=== PATIENT | female | born 1945 | race African-American/Black ===

== ENCOUNTER 2017-02-10 15:06 | Emergency (ER) | payer MEDICARE, MEDICAID ==
[2017-02-10 16:20] LABS: Bilirubin Negative (Negative); Blood, Urine Negative (Negative); Glucose, Urine (Dipstick) Negative (Negative); Ketone, Urine Negative (Negative); Nitrite Negative (Negative); Protein, Urine (Dipstick) Negative (Neg-Trace); Urobilinogen 0.2 mg/dL (0.2-1.0)
[2017-02-10 16:46] LABS: #Basophils 0.1 thou/uL (0.0-0.2); #Eosinphils 0.1 thou/uL (0.0-0.7); #Lymphocytes 2.9 thou/uL (1.20-3.40); #Monocytes 0.5 thou/uL (0.11-0.59); #Neutrophils 2.6 thou/uL (1.40-6.50); %Basophils 1.4 % (0.0-1.0); %Eosinophils 2.2 % (0.0-10.0); %Lymphocytes 46.7 % (21.0-51.0); %Monocytes 8.2 % (0.0-10.0); Hematocrit 42.6 % (36.0-47.0); Mean Platelet Volume 7.4 fL (7.4-10.4); Red Blood Cell (RBC) Count 4.28 mill/uL (4.20-5.40); White Blood Cell (WBC) Count 6.3 thou/uL (4.8-10.8)
--- NOTE | 2017-02-10 16:51 | RAD ---
RIGHT KNEE FOUR VIEW 02/10/17 HISTORY: Severe knee pain. COMPARISON: None. FINDINGS: There is no acute fracture or malalignment. No significant joint effusion. Benign appearing chondroid lesion distal femur metaphysis. IMPRESSION: 1. No acute abnormality. 2. Mild medial compartment osteoarthritic disease. POS: [facility]
[2017-02-10 17:08] LABS: ALT (SGPT) 12 U/L (8-55); AST (SGOT) 16 U/L (5-34); Alkaline Phosphatase 84 U/L (40-150); Anion Gap 14 mmol/L (10-20); BUN (Urea Nitrogen) 15 mg/dL (9.8-20.1); Bilirubin, Total 0.3 mg/dL (0.2-1.2); Calc. Creatinine Clearance 0 mL/min (70-130); Calcium 9.5 mg/dL (7.8-10.44); Carbon Dioxide 25 mmol/L (23-31); Chloride 104 mmol/L (98-107); Estimated GFR-MDRD 80; Globulin 2.8 g/dL (2.4-3.5); Protein, Total 7.1 g/dL (6.0-8.3)
[2017-02-10 17:11] LABS: Troponin I 0.021 ng/mL (< 0.028)
--- NOTE | 2017-02-10 17:32 | RAD ---
PORTABLE AP CHEST X-RAY 02/10/17 HISTORY: Cough. COMPARISON: 11/14/15. FINDINGS: The cardiac silhouette remains stable in size and is at the upper limits of normal in size. Pulmonary vasculature is within normal limits. Thoracic aorta remains ectatic. There are linear densities seen in the region of the lingula which have improved from the prior study and may be related to minimal residual scarring. Lungs are otherwise clear. There has been no other interval change from prior stud y. IMPRESSION: 1. No acute cardiopulmonary process. 2. Minimal scarring in the region of the lingula. POS: [facility]
== END 2017-02-10 18:20 | disposition home or self-care (01) ==
LOC: ERS 15:06
DX: M25.561 Pain in right knee (principal); E11.9 Type 2 diabetes mellitus without complications; I48.91 Unspecified atrial fibrillation; E03.9 Hypothyroidism, unspecified; E78.5 Hyperlipidemia, unspecified; I25.10 Atherosclerotic heart disease of native coronary artery without angina pectoris; I10 Essential (primary) hypertension; Z79.82 Long term (current) use of aspirin; Z79.84 Long term (current) use of oral hypoglycemic drugs; Z79.891 Long term (current) use of opiate analgesic; Z79.899 Other long term (current) drug therapy
CPT/HCPCS: 36415; 71010; 80053; 81003; 82553; 84484; 85025; 93005; 99406

== ENCOUNTER 2017-06-20 09:57 | Outpatient (CLI) | payer MEDICARE, MEDICAID | END 2017-06-20 09:58 | disposition home or self-care (01) | LOC: BICMAMMO 09:57 | PROVIDERS: ATTEND Family Medicine | DX: Z12.31 Encounter for screening mammogram for malignant neoplasm of breast (principal); R92.1 Mammographic calcification found on diagnostic imaging of breast | CPT/HCPCS: 77063; 77067 ==

== ENCOUNTER 2018-05-29 12:22 | Emergency (ER) | payer MEDICARE, MEDICAID ==
[2018-05-29 13:09] LABS: #Basophils 0.1 thou/uL (0.0-0.2); #Eosinphils 0.2 thou/uL (0.0-0.7); #Lymphocytes 2.8 thou/uL (1.20-3.40); #Monocytes 0.5 thou/uL (0.11-0.59); #Neutrophils 3.5 thou/uL (1.40-6.50); %Basophils 1.4 % (0.0-1.0); %Eosinophils 2.9 % (0.0-10.0); %Monocytes 7.5 % (0.0-10.0); %Neutrophils 49.2 % (42.0-75.0); Hemoglobin 14.8 g/dL (12.0-16.0); Mean Corpuscular HGB CONC 32.1 g/dL (32.0-36.0); Mean Corpuscular Hemoglobin 31.8 pg (27.0-31.0); Mean Corpuscular Volume 98.9 fL (78.0-98.0); Mean Platelet Volume 8.3 fL (7.4-10.4); Platelet Count 289 thou/uL (130-400); RBC Distribution Width 12.7 % (11.5-14.5); Red Blood Cell (RBC) Count 4.65 mill/uL (4.20-5.40); White Blood Cell (WBC) Count 7.2 thou/uL (4.8-10.8)
[2018-05-29 13:56] LABS: ALT (SGPT) 22 U/L (8-55); AST (SGOT) 20 U/L (5-34); Albumin 4.7 g/dL (3.4-4.8); Alkaline Phosphatase 81 U/L (40-150); Anion Gap 13 mmol/L (10-20); BUN (Urea Nitrogen) 11 mg/dL (9.8-20.1); Bilirubin, Total 0.4 mg/dL (0.2-1.2); Calc. Creatinine Clearance 0 mL/min (70-130); Calcium 9.8 mg/dL (7.8-10.44); Carbon Dioxide 27 mmol/L (23-31); Chloride 104 mmol/L (98-107); Estimated GFR-MDRD 65; Globulin 2.8 g/dL (2.4-3.5); Glucose 138 mg/dL (83-110); Lipase 23 U/L (8-78); Potassium 3.9 mmol/L (3.5-5.1); Protein, Total 7.5 g/dL (6.0-8.3); Sodium 140 mmol/L (136-145)
[2018-05-29] MEDS ORDERED: Furosemide 40 MG/4 ML VIAL ONE (14:43)
--- NOTE | 2018-05-29 14:45 | RAD ---
PORTABLE CHEST 1 VIEW: Date: 05/29/18 Time: 1205 hours HISTORY: Shortness of breath and chest pain. FINDINGS: Comparison made with exam of 02/10/17. The heart is enlarged. The aorta is tortuous. The lungs are well expanded without focal areas of cons olidation, pneumothoraces, giacomo pulmonary edema, or pleural effusions. IMPRESSION: No acute process. POS: OFF
--- NOTE | 2018-05-29 14:50 | ULT ---
ULTRASOUND GALLBLADDER RIGHT UPPER QUADRANT: Date: 05/29/18 HISTORY: Abdominal pain. COMPARISON: None. FINDINGS: Real-time Munoz scale and color evaluation of the right upper quadrant of the abdomen was performed. The visualized portions of the pancreas are unremarkable. Liver measures 14.2 cm in length. No hepati c mass. Gallbladder is normal. No pericholecystic fluid. Sonographic Perez's sign is negative. Commo n bile duct measures 4.0 mm. Right kidney measures 10.9 x 3.8 x 5.1 cm. The protal vein is patent wit h antegrade flow. IMPRESSION: 1. No acute abnormality of the right upper quadrant. 2. Small right pleural effusion. POS: [facility]
== END 2018-05-29 15:14 | disposition home or self-care (01) ==
LOC: ERS 12:22
DX: I11.0 Hypertensive heart disease with heart failure (principal); I50.9 Heart failure, unspecified; I48.91 Unspecified atrial fibrillation; I25.10 Atherosclerotic heart disease of native coronary artery without angina pectoris; E11.9 Type 2 diabetes mellitus without complications; E03.9 Hypothyroidism, unspecified; E78.00 Pure hypercholesterolemia, unspecified; F17.210 Nicotine dependence, cigarettes, uncomplicated; M19.90 Unspecified osteoarthritis, unspecified site; Z79.899 Other long term (current) drug therapy; Z79.891 Long term (current) use of opiate analgesic; Z79.82 Long term (current) use of aspirin; Z79.84 Long term (current) use of oral hypoglycemic drugs
CPT/HCPCS: 71045; 76705; 80053; 83605; 83690; 83880; 84484; 85025; 87804; 93005; 96374; J1940

== ENCOUNTER 2018-06-21 14:05 | Outpatient (CLI) | payer MEDICARE, MEDICAID ==
--- NOTE | 2018-06-21 14:39 | MMO ---
Bilateral MAMMO Bilat Screen DDI+MIN. CLINICAL HISTORY: Patient is 72 years old and is seen for screening. The patient has the following family history of breast cancer: 2 cousin females. The patient has no personal history of cancer. The patient has a history of right Ultrasound Guided Core Biopsy in Jul, 2015. VIEWS: The views performed were: bilateral craniocaudal with tomosynthesis and bilateral mediolateral oblique with tomosynthesis. FILMS COMPARED: The present examination has been compared to prior imaging studies performed at [facility] on 11/14/2000, 12/28/2001, 07/28/2006, 01/29/2008, 02/02/2009, 02/23/2010, 03/15/2011, 03/16/2012, 03/21/2013, 04/03/2014, 06/15/2015, 06/17/2015, 06/15/2016 and 06/20/2017. MAMMOGRAM FINDINGS: There are scattered fibroglandular densities. There are stable benign appearing calcifications seen in both breasts. Nodularity is stable. There are no suspicious masses, suspicious calcifications, or new areas of architectural distortion. IMPRESSION: THERE IS NO MAMMOGRAPHIC EVIDENCE OF MALIGNANCY. A ROUTINE FOLLOW-UP MAMMOGRAM IN 1 YEAR IS RECOMMENDED. THE RESULTS OF THIS EXAM WERE SENT TO THE PATIENT. ACR BI-RADS Category 2 - Benign finding MAMMOGRAPHY NOTE: 1. A negative mammogram report should not delay a biopsy if a dominant of clinically suspicious mass is present. 2. Approximately 10% to 15% of breast cancers are not detected by mammography. 3. Adenosis and dense breasts may obscure an underlying neoplasm.
== END 2018-06-21 14:06 | disposition home or self-care (01) ==
LOC: BICMAMMO 14:05
PROVIDERS: ATTEND Family Medicine
DX: Z12.31 Encounter for screening mammogram for malignant neoplasm of breast (principal); Z80.3 Family history of malignant neoplasm of breast
CPT/HCPCS: 77063; 77067

== ENCOUNTER 2018-08-14 05:30 | Inpatient (IN) | payer MEDICARE, MEDICAID ==
[2018-08-14] MEDS ORDERED: Furosemide 40 MG/4 ML VIAL ONE (05:39)
[2018-08-14 05:51] LABS: Actual Bicarbonate (HCO3a) 21.7 mEq/L (22-28); Analyzer IN Cardio ER; Base Excess (BEa) -4.4 mEq/L (-2.0 to +3.0); CO2 Tension 43.4 mmHg (35.0-45.0); Calcium, Ionized 1.16 mmol/L (1.12-1.30); Carboxyhemoglobin (COHb) 1.6 gm% (0.0-3.0); Hemoglobin (Hb) 14.7 g/dL (12.0-16.0); O2 Tension (PaO2) 266.7 mmHg (> 70.0); Potassium - ABG Lab 3.69 mmol/L (3.70-5.30); pH, Arterial 7.32 (7.35-7.45)
[2018-08-14 05:56] LABS: Puncture Site RRA
[2018-08-14 05:57] LABS: Hemoglobin 14.5 g/dL (12.0-16.0); Mean Corpuscular HGB CONC 33.5 g/dL (32.0-36.0); Mean Corpuscular Hemoglobin 33.2 pg (27.0-31.0); Mean Corpuscular Volume 99.1 fL (78.0-98.0); Mean Platelet Volume 8.2 fL (7.4-10.4); Platelet Count 255 thou/uL (130-400); RBC Distribution Width 12.7 % (11.5-14.5); Red Blood Cell (RBC) Count 4.37 mill/uL (4.20-5.40); White Blood Cell (WBC) Count 9.1 thou/uL (4.8-10.8)
[2018-08-14 06:15] LABS: Eosinophils 3 % (0-10); Lymphocytes 53 % (21-51); MDiff Complete? YES; Monocytes 6 % (0-10); Neutrophil 27 % (42-75); Reactive Lymphocytes 10 % (0-10)
[2018-08-14 06:36] LABS: CKMB 0.9 ng/mL (0-6.6)
[2018-08-14] MEDS ORDERED: cefTRIAXone\\ROCEPHIN 2 GM VIAL ONE (06:36)
[2018-08-14] MEDS ORDERED: Aspirin Chewable 81 MG TAB ONE (06:36)
[2018-08-14 06:44] LABS: Albumin 4.7 g/dL (3.4-4.8); Alkaline Phosphatase 86 U/L (40-150); Anion Gap 18 mmol/L (10-20); Bilirubin, Total 0.4 mg/dL (0.2-1.2); Calcium 9.5 mg/dL (7.8-10.44); Carbon Dioxide 19 mmol/L (23-31); Chloride 107 mmol/L (98-107); Globulin 2.9 g/dL (2.4-3.5); Glucose 201 mg/dL (83-110); Potassium 3.9 mmol/L (3.5-5.1); Protein, Total 7.6 g/dL (6.0-8.3); Sodium 140 mmol/L (136-145)
[2018-08-14 06:45] LABS: BUN (Urea Nitrogen) 14 mg/dL (9.8-20.1); Calc. Creatinine Clearance 0 mL/min (70-130); Estimated GFR-MDRD 52
[2018-08-14] MEDS ORDERED: Azithromycin 1,000 MG in Sodium Chloride 0.9% 250 ML 250 ML IVPB SCH (06:45)
[2018-08-14 06:46] LABS: AST (SGOT) 61 U/L (5-34)
[2018-08-14 06:47] LABS: ALT (SGPT) 63 U/L (8-55)
[2018-08-14] MEDS ORDERED: Azithromycin 500 MG VIAL ONE (07:34)
[2018-08-14] MEDS ORDERED: Acetaminophen 325 MG TAB PO PRN (08:26)
[2018-08-14] MEDS ORDERED: HumaLOG 300 UNITS/3 ML VIAL SC PRN ×2 (08:26)
[2018-08-14] MEDS ORDERED: Dextrose 5% in Water 1,000 ML IV PRN (08:26)
[2018-08-14] MEDS ORDERED: Dextrose 50% Abboject 50 ML SYRINGE SLOW IVP PRN (08:26)
[2018-08-14] MEDS ORDERED: hydrALAZINE 20 MG/ML VIAL SLOW IVP PRN (08:26)
[2018-08-14 08:29] VITALS: BMI 28.5
[2018-08-14] MEDS ORDERED: Levothyroxine Sodium 100 MCG TAB PO SCH (09:00)
[2018-08-14] MEDS ORDERED: Non-Formulary Item 1 EACH (Rosuvastatin Calcium [Crestor] 40 MG) PO SCH (09:00)
--- NOTE | 2018-08-14 09:04 | RAD ---
CHEST 1 VIEW: COMPARISON: 05/29/2018. HISTORY: Respiratory distress. FINDINGS: Cardiomegaly, pulmonary vascular congestion, interstitial and alveolar edema are present. Small left -sided effusion with adjacent parenchymal changes, in the left lung base. No pneumothorax. IMPRESSION: 1. Congestive heart failure. 2. Possible atelectasis or pneumonia superimposed, in the left lung base. Continued surveillance. POS: [facility]
[2018-08-14 09:10] LABS: Troponin I 0.209 ng/mL (< 0.028)
[2018-08-14 10:06] LABS: Lactic Acid 1.9 mmol/L (0.5-2.2)
--- NOTE | 2018-08-14 10:23 | HP ---
PRIMARY CARE PHYSICIAN: Dr. Tam. AVIATION PROJECT MANAGER: Mikhail Greer MD CHIEF COMPLAINT: "I'm short of breath." HISTORY OF PRESENT ILLNESS: Ms. Pressley is a very pleasant 73-year-old female, who has a history of hypertension as well as history of diastolic heart failure. She was in her usual state of health until early this morning around 5:00 a.m. She says she started having some pressure across of her stomach and was acutely short of breath. She says she gets like this when she drinks lots of fluids and she admits over the last few days she has been drinking more fluids than usual. She also states that she has been a little bit liberal with regard to sodium intake as well. She denies having any chest pain, but says that she has had a dry cough over the last few days. She, however, denies any PND or orthopnea in the last few days. She also denies any palpitations as well. No nausea. No vomiting. No fevers. No chills. When she was evaluated in the emergency room, she was found to be hypertensive with a blood pressure of 179/114. She was tachypneic and hypoxic. She was placed on BiPAP. Chest x-ray revealed some pulmonary edema and she is being admitted to the [facility] for further treatment. REVIEW OF SYSTEMS: CONSTITUTIONAL: Again, no fevers or chills. No night sweats. No weight loss. HEENT: She denies any headaches. No dizziness. No visual changes. No sore throat or rhinorrhea. NECK: No neck pain. No adenopathy. PULMONARY: She has had a dry cough, but no wheezing. No hemoptysis. CARDIOVASCULAR: As in history of present illness. GASTROINTESTINAL: She denies any abdominal pain, but has had some upper abdominal pressure. No nausea. No vomiting. No hematemesis. No melena. GENITOURINARY: No urinary frequency or hematuria. No hesitancy. MUSCULOSKELETAL: No muscle pains, weakness, or joint pains. NEUROLOGIC: No focal weakness or seizures. SKIN AND INTEGUMENT: No skin changes. No rash. ENDOCRINE: No heat or cold intolerance. PAST MEDICAL HISTORY: Significant for hypertension, hyperlipidemia, diabetes mellitus type 2, atrial fibrillation, hypothyroidism, and diverticulosis. PAST SURGICAL HISTORY: She has had a hysterectomy as well as a breast biopsy. ALLERGIES: NO KNOWN DRUG ALLERGIES. SOCIAL HISTORY: She has a common-law . She has 4 children. She admits to continuing to smoke about 5 cigarettes a day. She denies any alcohol use. She says any of her daughters are capable of being her surrogate decision maker. She has never thought about code status and therefore is a full code. FAMILY HISTORY: Significant for heart disease and her sister had stomach cancer. Anemia and diabetes also runs in the family. CURRENT MEDICATIONS: These are taken from her emergency room records and includes; 1. Lisinopril 40 mg a day. 2. Clonidine 0.1 mg twice daily. 3. Metformin 500 mg once a day. 4. Aspirin 81 mg daily. 5. Levothyroxine 100 mcg daily. 6. Cardizem 180 mg 2 tablets once a day. 7. Carvedilol 6.25 mg twice a day. 8. Tramadol 50 mg q.8 as needed. 9. Crestor 40 mg daily. 10. Lasix 40 mg a day. 11. Potassium chloride 40 mEq once a day. 12. Omeprazole 40 mg daily. PHYSICAL EXAMINATION: GENERAL: She is alert and oriented. She appears to be in some distress due to dyspnea. She is well developed and well nourished. VITAL SIGNS: Her blood pressure now is 136/87, heart rate 74, respiratory rate of 29, and temperature is 98. HEENT: Her pupils are equal, round, and reactive. Extraocular muscles are intact. Her sclerae are anicteric. Throat; there is no erythema. No exudates. NECK: No adenopathy. No bruits. LUNGS: On her lungs, she has coarse breath sounds. I did not appreciate any wheezing. She may have had some very fine crackles. CARDIOVASCULAR: She has a normal S1 and S2. I did not appreciate an S3 or S4. No murmurs. No clicks. No rubs. ABDOMEN: Obese, mildly distended, tympanic to percussion. It is nontender. There is no evidence of organomegaly. EXTREMITIES: On her extremities. There is no calf tenderness. No joint effusions. NEUROLOGIC: Her cranial nerves II through XII are grossly intact and muscle strength is 5/5 in both her upper and lower extremities. SKIN AND INTEGUMENT: There are no skin changes. No rash. LABORATORY DATA: On her lab results; the sodium was 140, potassium 3.9, chloride is 107, CO2 is 19, BUN of 14, creatinine 1.22, and glucose is 201. Lactic acid was 3.2. The white blood cell count is 9.1, hemoglobin 14.5, hematocrit is 43.3, and platelet count is 255. On her ABG; pH is 7.32, pCO2 is 43, and pO2 is 266. IMAGING DATA: She had a chest x-ray, which by my reading showed cardiomegaly and is actually poorly penetrated, but has what appears to be increased pulmonary vascular markings bilaterally, possibly a left pleural effusion due to aspiration of the diaphragm on the left. Her EKG also by my reading is sinus rhythm, the rate was 85. She had some voltage criteria for LVH and some nonspecific ST wave changes. ASSESSMENT: This is a pleasant 73-year-old female, who comes to the emergency room with shortness of breath. She had a history of hypertension and diastolic heart failure. Her last echo was at least in our records was in 2014 and there was no mention of systolic heart failure. She had some mild systolic heart failure at that time. She will be admitted to [facility] for acute respiratory failure with hypoxemia due to CHF exacerbation. 1. Congestive heart failure exacerbation likely diastolic as well as mild systolic heart failure. Continue IV Lasix. Continue her JOSE D inhibitor. We will check an echo and consult Cardiology, given her troponin was slightly elevated. We will also continue to trend her troponins. 2. Possible respiratory infection. We will continue IV azithromycin. 3. Hypertensive urgency. Her blood pressure has already improved in the ER. We will continue her home medications as well as p.r.n. hydralazine. 4. Diabetes mellitus. Continue metformin as well as a sliding-scale insulin. 5. Hypothyroidism. She appears to be clinically euthyroid. We will check a TSH and also continue levothyroxine. 6. She will be placed on deep venous thrombosis and gastrointestinal prophylaxis. Job ID: [id number]
[2018-08-14 12:04] LABS: Troponin I 0.192 ng/mL (< 0.028)
[2018-08-14] MEDS: Enoxaparin Sodium 30 MG/0.3 ML SYRINGE SC SCH (13:37)
[2018-08-14] MEDS: Carvedilol 6.25 MG TAB PO SCH ×2 (13:37→21:00)
[2018-08-14] MEDS: Furosemide 40 MG/4 ML VIAL SLOW IVP SCH (13:38)
[2018-08-14] MEDS: Nitroglycerin 2% Ointment 1 INCH/1 GM Packet TOP SCH ×2 (13:38→21:01)
--- NOTE | 2018-08-14 17:00 | CON ---
DATE OF CONSULTATION: 08/14/2018 HISTORY OF PRESENT ILLNESS: Ms. Pressley is a 73-year-old female, who was followed by Dr. Greer. She has a history of diastolic heart failure. She presented with complaints of pressure across her chest and upper abdomen as well as shortness of breath. She has not been on salt or fluid restricting. She presented with significant blood pressure elevation, subsequently was admitted. She was placed on BiPAP. She says she feels much better now. The BiPAP is off. She denies shortness of breath currently. PAST MEDICAL HISTORY: Remarkable for; 1. Hypertension. 2. Lipid disorder. 3. Diabetes. 4. Atrial fibrillation. 5. Hypothyroidism. 6. Diverticulosis. 7. Status post hysterectomy. 8. History of breast biopsy. SOCIAL HISTORY: She smokes 5 cigarettes a day. Does not drink. ALLERGIES: SHE REPORTS NO DRUG ALLERGIES. FAMILY HISTORY: Positive for vascular disease, cancer, and diabetes. REVIEW OF SYSTEMS: 10 point review of systems completed, otherwise negative. MEDICATIONS: Prior to admission, she is on; 1. Lisinopril. 2. Catapres. 3. Metformin. 4. Aspirin. 5. Synthroid. 6. Cardizem. 7. Coreg. 8. Tramadol. 9. Crestor. 10. Lasix. 11. Potassium. 12. Omeprazole. PHYSICAL EXAMINATION: GENERAL: She is in no distress. VITAL SIGNS: She is afebrile. Heart rate 75, blood pressure 150/93, and respiratory rates in the teens. HEENT: Pupils are equal. Sclerae are anicteric. Extraocular movements appear full. NECK: Supple. No lymphadenopathy. LUNGS: Clear. HEART: Regular rhythm. S1 and S2 are normal. I do not hear a murmur. ABDOMEN: Soft and nontender. EXTREMITIES: Without clubbing, cyanosis, or edema. NEURO: Grossly nonfocal. LABORATORY DATA: White count 9.1, hemoglobin 14.5, and platelets 255. She had no left smear, although she did have a lymphocyte predominance on her peripheral smear with 63% lymphocytes. Past CBCs going back to 2014 show predominant lymphocytes as well. Chest x-ray reviewed by me shows pulmonary edema. IMPRESSION AND PLAN: Congestive heart failure secondary to poorly controlled hypertension and diastolic dysfunction. She is clinically improved. She can probably transfer to a telemetry bed when one becomes available. This is a 50 minute consult, with greater than 50% of time spent on unit coordinating care. Job ID: [id number] MTDD
[2018-08-14] MEDS: Diltiazem 125 MG in Sodium Chloride 0.9% 100 ML IVPB SCH (17:32)
[2018-08-14] MEDS: Rosuvastatin 20 MG TAB PO SCH (21:00)
[2018-08-14] MEDS: Ezetimibe 10 MG TAB PO SCH (21:00)
[2018-08-14] MEDS: cloNIDine 0.1 MG TAB PO SCH (21:00)
[2018-08-15] MEDS: Nitroglycerin 2% Ointment 1 INCH/1 GM Packet TOP SCH ×3 (05:26→21:12)
[2018-08-15] MEDS: Furosemide 40 MG/4 ML VIAL SLOW IVP SCH ×2 (05:26→14:53)
[2018-08-15 05:34] LABS: Anion Gap 12 mmol/L (10-20); BUN (Urea Nitrogen) 14 mg/dL (9.8-20.1); Calc. Creatinine Clearance 64 mL/min (70-130); Calcium 9.6 mg/dL (7.8-10.44); Carbon Dioxide 23 mmol/L (23-31); Cardiac Risk 5.6 (Less than 4.5); Chloride 108 mmol/L (98-107); Cholesterol 217 mg/dl (< 200 Desired); Estimated GFR-MDRD 79; Glucose 119 mg/dL (83-110); HDL Cholesterol 39 mg/dL (>60 Neg Risk); LDL Cholesterol, Calculated 158 mg/dL; Potassium 3.3 mmol/L (3.5-5.1); Sodium 140 mmol/L (136-145); Triglycerides 98 mg/dL (Less than 150)
[2018-08-15] MEDS ORDERED: Levothyroxine Sodium 100 MCG TAB PO SCH (09:00)
[2018-08-15] MEDS ORDERED: Lisinopril 20 MG TAB PO SCH (09:00)
--- NOTE | 2018-08-15 09:27 | PDOC.PN ---
- Subjective Encounter Start Date: 08/15/18 Encounter Start Time: 09:24 Ms. Pressley was seen today in follow-up of CHF exacerbation. She is off BiPAP. She says she is breathing better today. She denies having any shortness of breath or chest pain. - Objective Resuscitation Status - Order Detail: 08/14/18 08:03 Resuscitation Status Routine Resuscitation Status: FULL: Full Resuscitation MAR Reviewed: Yes Vital Signs & Weight: Vital Signs (12 hours) Temp Resp Pulse Ox 08/15/18 08:00 97 08/15/18 07:35 97.4 F L 08/15/18 05:00 20 08/15/18 04:00 98.0 F 08/14/18 23:50 98.7 F Weight Admit Weight 155 lb 14.4 oz Weight 153 lb 8 oz Most Recent Monitor Data Heart Rate from ECG 127 NIBP 140/84 NIBP BP-Mean 102 Respiration from ECG 19 SpO2 98 I&O: 08/14/18 08/15/18 08/16/18 06:59 06:59 06:59 Intake Total 840 Output Total 3450 600 Balance -2610 -600 Result Diagrams: 08/14/18 05:36 08/15/18 04:37 Additional Labs: Accuchecks 08/15/18 05:45 POC Glucose 112 H Phys Exam - Physical Examination HEENT: PERRLA, sclera anicteric Respiratory: no wheezing, no rales + rhonchi at the bases Cardiovascular: RRR, no significant murmur, no rub Gastrointestinal: soft, non-tender, no distention, positive bowel sounds Musculoskeletal: no edema, pulses present Neurological: non-focal, normal sensation, moves all 4 limbs Dx/Plan (1) Acute on chronic diastolic heart failure Code(s): I50.33 - ACUTE ON CHRONIC DIASTOLIC (CONGESTIVE) HEART FAILURE Status : Acute (2) Acute respiratory failure with hypoxia Code(s): J96.01 - ACUTE RESPIRATORY FAILURE WITH HYPOXIA Status: Acute (3) Diabetes mellitus type 2 in nonobese Code(s): E11.9 - TYPE 2 DIABETES MELLITUS WITHOUT COMPLICATIONS Status: Chronic (4) Hypertensive urgency Code(s): I16.0 - HYPERTENSIVE URGENCY Status: Acute (5) Afib Code(s): I48.91 - UNSPECIFIED ATRIAL FIBRILLATION Status: Chronic (6) Hypothyroidism Code(s): E03.9 - HYPOTHYROIDISM, UNSPECIFIED Status: Chronic (7) Hypertension Code(s): I10 - ESSENTIAL (PRIMARY) HYPERTENSION Status: Chronic (8) Dyslipidemia Code(s): E78.5 - HYPERLIPIDEMIA, UNSPECIFIED Status: Acute - Plan * Acute on chronic diastolic heart failure- improved- she is diuresing well. Await Echo results * Hypertensive urgency- resolved. Blood pressure is better.. * AFIB- her heart rate has been variable- continue the Cardizem drip, She tells me she is not on anticoagulation due to a GI bleed she has about a year ago. We have re-started Carvediolol, and Cardizem orally. Await further recommendations from Cardiology * Hypokalemia- replace potassium * Hypothyroidism- TSH is normal- clinically euthyroid * Dyslipidemia- continue Crestor and Zetia * She likely can be transitioned out of the [facility]
[2018-08-15] MEDS: Azithromycin 500 MG in Sodium Chloride 0.9% 250 ML 250 ML IVPB SCH (09:29)
[2018-08-15] MEDS: Aspirin 81 mg Enteric Coated Tablet PO SCH (09:29)
[2018-08-15] MEDS: Potassium Chloride 20 MEQ TAB PO SCH (09:30)
[2018-08-15] MEDS: Carvedilol 6.25 MG TAB PO SCH ×2 (09:30→21:10)
[2018-08-15] MEDS: Enoxaparin Sodium 30 MG/0.3 ML SYRINGE SC SCH (09:32)
[2018-08-15] MEDS ORDERED: Potassium Chloride 20 MEQ TAB PO SCH (12:00)
--- NOTE | 2018-08-15 15:53 | PRG ---
DATE OF SERVICE: 08/15/2018 SUBJECTIVE: Ms. Pressley states she is feeling better. She has no complaints. OBJECTIVE: VITAL SIGNS: Blood pressure 110/78, heart rate 65, respiratory rate 29, and oximetry 96%. LUNGS: Clear. HEART: Regular rhythm. ABDOMEN: Soft. EXTREMITIES: Without edema. LABORATORY DATA: Sodium 140, potassium 3.3, chloride 108, bicarb 23, BUN 14, and creatinine 0.85. BNP is 471. IMPRESSION: Congestive heart failure, clinically improved. She is stable to move out of the intermediate care in my opinion. Job ID: [id number] MTDD
[2018-08-15] MEDS: cloNIDine 0.1 MG TAB PO SCH (21:11)
[2018-08-15] MEDS: Rosuvastatin 20 MG TAB PO SCH (21:11)
[2018-08-15] MEDS: Ezetimibe 10 MG TAB PO SCH (21:11)
--- NOTE | 2018-08-16 00:33 | CON ---
DATE OF CONSULTATION: HISTORY: Lo Pressley is a 73-year-old black female, whom I initially evaluated in November 1986. She has a history of anemia for years and had positive sickle prep. She also had heavy menstrual flow and was advised in the to undergo hysterectomy. Gastrointestinal and barium enema evaluations were unremarkable. Echo revealed left atrial and right atrial enlargement, left ventricular enlargement, normal left ventricular contractility, moderate mitral regurgitation. Hemoglobin at the time of admission was 2.5 with a hematocrit of 9.1. Hemoglobin electrophoresis was normal. She underwent bone marrow biopsy, which revealed no iron storage. She was transfused. It was recommended for her to undergo a hysterectomy, however, she declined. It was felt that her anemia is due to vaginal bleeding. She underwent sigmoid colonoscopy, which revealed only a rectal fissure. In May 1989, she was again admitted with severe anemia with a hemoglobin of 2.8, shortness of breath and chest discomfort on exertion. Iron was 5, TIBC 432. She was transfused 4 units. Echo revealed moderate left ventricular dysfunction, moderate aortic insufficiency, moderate mitral regurgitation. She ultimately did undergo a hysterectomy. She was then not seen from September 1989 until June 2006. She had been hospitalized in August 2005 for congestive heart failure with ejection fraction of 35% at that time with mild global hypokinesis, left ventricular hypertrophy, [id number] aortic insufficiency, trivial mitral regurgitation. I was not asked to see her on admission in August 2005. She was again admitted in June 2006 with central chest pressure that would last 5 to 10 minutes associated with shortness of breath, occasional diaphoresis, but no nausea or vomiting. Cardiac enzymes were unremarkable. She underwent adenosine Cardiolite testing, which revealed suggestion of some minimal inferior wall ischemia and thinning of the anterior wall without definite ischemic changes. Ejection fraction was 39%. Echo during that admission revealed ejection fraction of 30% to 35% with moderate mitral regurgitation, mild aortic insufficiency. There was evidence for diastolic dysfunction. She underwent cardiac catheterization, which revealed severe left ventricular dysfunction with ejection fraction of 25% to 30 %, mild mitral regurgitation, mild aortic insufficiency. Coronary arteries were normal. It was felt that her chest discomfort was not cardiac in nature. During that admission, she was placed on carvedilol as well as JOSE D inhibitor and furosemide. There continued to be difficulty in controlling her blood pressure. Over time, her ejection fraction gradually improved and she did not require ICD placement. Echo in June 2014 revealed ejection fraction of 45% to 50%, left atrial enlargement, aortic valvular fibrosis, diastolic dysfunction, severe tricuspid regurgitation, moderate to severe mitral regurgitation, moderate aortic insufficiency. In June 2014, she was admitted with increased shortness of breath and congestive heart failure. She was diuresed. She was admitted later in June 2014 to [facility] with atrial fibrillation. She was started on Xarelto at that time. In August 2014, she was admitted with chest discomfort, but refused Cardiolite testing. She then presented in December 2014 complaining of bright red blood per rectum. Previously in October 2014, she was evaluated by Dr. Gennaro Munoz. She had mild gastritis and diverticulosis coli with no other significant abnormalities on EGD and colonoscopy. After that, it was felt best to stop her Xarelto and just treat her medically. She has continued to be followed in the office since that time. In November 2015, carvedilol dose was increased to 12.5 mg b.i.d. and after that for 6 visits in the office as well as her last one on July 19, 2018, she continued to remain in sinus rhythm. Again, it was felt that she was not an anticoagulation candidate with GI bleed on Xarelto. The last echocardiogram in the office was on July 19, 2018. Ejection fraction 50 % to 55% with mild left atrial and right atrial enlargement, moderate mitral regurgitation, aortic valvular sclerosis, moderate aortic regurgitation and moderate tricuspid regurgitation. She now was admitted yesterday morning with increased shortness of breath. She woke up around 05:00 a.m. and started having increasing shortness of breath. She admits to drinking a lot of fluids as well as eating a lot of salt recently. She came to the emergency room, was tachypneic and hypoxic, placed on BiPAP. Chest x-ray revealed pulmonary edema and she was diuresed. Initially when she came in, she was not in any kind of atrial arrhythmias; however, since admission, she developed paroxysmal atrial fibrillation/flutter. As of note that on her admission medication list in the computer, she is listed as being on Coreg 6.25 b.i.d.; however, her real dose is 12.5 b.i.d. PAST MEDICAL HISTORY: Hypertension, diabetes, hyperlipidemia, paroxysmal atrial fibrillation, hypothyroidism, diverticulosis. PAST SURGICAL HISTORY: Hysterectomy and breast biopsy. MEDICATIONS: 1. Carvedilol 12.5 mg b.i.d. 2. Aspirin 81 daily. 3. Clonidine 0.1 at bedtime. 4. Lisinopril 40 mg daily. 5. Diltiazem 360 daily. 6. Zetia 10 mg daily. 7. Crestor 40 mg daily. 8. Furosemide 40 q.a.m. 9. Levothyroxine 100 mcg daily. 10. Metformin 500 daily. 11. Omeprazole 40 daily. 12. KCl 20 mEq daily. ALLERGIES: NONE. SOCIAL HISTORY: She continues to smoke 5 or 6 cigarettes per day. She does not drink. FAMILY HISTORY: Mother of OR at age 67. REVIEW OF SYSTEMS: A 10-point review of systems is otherwise unremarkable. PHYSICAL EXAMINATION: VITAL SIGNS: Blood pressure 110/78, pulse 65. HEENT: PERRL. NECK: Supple. CHEST: Clear. CARDIAC: S1 and S2 normal without any S3, S4. II/ systolic ejection murmur in the aortic area. There are no carotid bruits. ABDOMEN: Obese, normal bowel sounds. No tenderness. EXTREMITIES: Revealed no clubbing, cyanosis, or edema. NEUROLOGIC: Grossly intact. SKIN: Warm and dry. LABORATORY DATA: EKG reveals normal sinus rhythm, possible left atrial enlargement. Echocardiogram revealed ejection fraction of 50% to 55%, moderate left atrial enlargement, mild right atrial enlargement, moderate mitral regurgitation, aortic valvular sclerosis, moderate aortic regurgitation, mild tricuspid regurgitation. Chest x-ray reveals increased pulmonary vascularity and pulmonary edema. Hemoglobin 14.5, hematocrit 43.3, white count 9100, platelets 255,000. PH 7.32, pCO2 of 43.4, pO2 of 266.7. Sodium 140, potassium 3.3, chloride 108, carbon dioxide 23, BUN 14, creatinine 0.85. BNP 471.8. Cholesterol 217, triglycerides 98, HDL 39, LDL 158. TSH is normal. Troponin I 0.209. IMPRESSION: 1. Acute on chronic diastolic heart failure with pulmonary edema. 2. Paroxysmal atrial fibrillation, which has been under good control as an outpatient ever since carvedilol was increased to 12.5 mg b.i.d three years ago. From the medication list in the computer, it is listed that she takes Coreg 6.25 BID which is incorrect. 3. Normal coronary arteries. 4. Hypercholesterolemia, under poor control. 5. Hypertension. 6. Moderate mitral regurgitation. 7. Moderate aortic insufficiency. 8. The patient continues to smoke. 9. Hypothyroidism. 10. Diabetes. 11. History of systolic failure in the past; however, left ventricular function improved. PLAN: The patient is on carvedilol 12.5 mg b.i.d. at home and this dose will be restarted in the hopes of returning control of her atrial arrhythmias. Lisinopril dose will be reduced and clonidine will be held and gradually resumed as her blood pressure will allow. If she continues to breakthrough when she is on her home dose of medications, then consideration will be given to institution of therapy with amiodarone. She is not a candidate for anticoagulation with history of GI bleed on Xarelto. Job ID: [id number] [facility]
[2018-08-16 05:50] LABS: #Basophils 0.1 thou/uL (0.0-0.2); #Eosinphils 0.2 thou/uL (0.0-0.7); #Lymphocytes 3.2 thou/uL (1.20-3.40); #Monocytes 0.6 thou/uL (0.11-0.59); #Neutrophils 3.7 thou/uL (1.40-6.50); %Basophils 1.5 % (0.0-1.0); %Eosinophils 3.1 % (0.0-10.0); %Lymphocytes 40.4 % (21.0-51.0); %Monocytes 7.8 % (0.0-10.0); %Neutrophils 47.3 % (42.0-75.0); Hemoglobin 13.4 g/dL (12.0-16.0); Mean Corpuscular HGB CONC 33.2 g/dL (32.0-36.0); Mean Corpuscular Hemoglobin 32.5 pg (27.0-31.0); Mean Corpuscular Volume 97.9 fL (78.0-98.0); Mean Platelet Volume 7.9 fL (7.4-10.4); Platelet Count 244 thou/uL (130-400); RBC Distribution Width 12.3 % (11.5-14.5); Red Blood Cell (RBC) Count 4.11 mill/uL (4.20-5.40); White Blood Cell (WBC) Count 7.9 thou/uL (4.8-10.8)
[2018-08-16 06:08] LABS: Anion Gap 12 mmol/L (10-20); BUN (Urea Nitrogen) 16 mg/dL (9.8-20.1); Calc. Creatinine Clearance 60 mL/min (70-130); Calcium 9.4 mg/dL (7.8-10.44); Carbon Dioxide 22 mmol/L (23-31); Chloride 107 mmol/L (98-107); Estimated GFR-MDRD 73; Glucose 109 mg/dL (83-110); Potassium 3.6 mmol/L (3.5-5.1); Sodium 137 mmol/L (136-145)
[2018-08-16] MEDS: Levothyroxine Sodium 100 MCG TAB PO SCH (06:14)
[2018-08-16] MEDS: Furosemide 40 MG/4 ML VIAL SLOW IVP SCH ×2 (06:14→14:45)
[2018-08-16] MEDS: Nitroglycerin 2% Ointment 1 INCH/1 GM Packet TOP SCH ×3 (06:14→21:07)
[2018-08-16] MEDS: Aspirin 81 mg Enteric Coated Tablet PO SCH (08:49)
[2018-08-16] MEDS: Enoxaparin Sodium 30 MG/0.3 ML SYRINGE SC SCH (08:51)
[2018-08-16] MEDS: Potassium Chloride 20 MEQ TAB PO SCH (08:52)
[2018-08-16] MEDS: Carvedilol 6.25 MG TAB PO SCH ×2 (08:52→16:53)
[2018-08-16] MEDS: Diltiazem 125 MG in Sodium Chloride 0.9% 100 ML IVPB SCH (08:54)
[2018-08-16] MEDS: Azithromycin 500 MG in Sodium Chloride 0.9% 250 ML 250 ML IVPB SCH (08:55)
[2018-08-16] MEDS: Lisinopril 20 MG TAB PO SCH (08:57)
[2018-08-16] MEDS ORDERED: Diltiazem 125 MG in Sodium Chloride 0.9% 100 ML IVPB SCH (09:02)
--- NOTE | 2018-08-16 10:53 | PDOC.PN ---
- Subjective Encounter Start Date: 08/16/18 Encounter Start Time: 07:10 -: old records requested/rev pt is on room air, she feels much better, she is on cardizem drip, no dyspnea or chest pain - Objective Resuscitation Status - Order Detail: 08/14/18 08:03 Resuscitation Status Routine Resuscitation Status: FULL: Full Resuscitation MAR Reviewed: Yes Vital Signs & Weight: Vital Signs (12 hours) Temp Pulse Resp BP BP Pulse Ox 08/16/18 08:57 125/60 08/16/18 08:52 139/90 08/16/18 07:30 99 08/16/18 07:12 97.9 F 80 20 125/60 99 08/16/18 04:00 97.9 F 81 16 138/66 96 08/16/18 00:28 97.6 F 84 16 130/67 95 Weight Admit Weight 155 lb 14.4 oz Weight 154 lb 12.8 oz Most Recent Monitor Data Heart Rate from ECG 72 NIBP 118/76 NIBP BP-Mean 90 Respiration from ECG 29 SpO2 91 I&O: 08/15/18 08/16/18 08/17/18 06:59 06:59 06:59 Intake Total 840 1280 300 Output Total 3450 2700 Balance -2610 -1420 300 Result Diagrams: 08/16/18 05:27 08/16/18 05:27 Additional Labs: Accuchecks 08/16/18 08/15/18 08/15/18 05:21 21:30 17:12 POC Glucose 108 112 H 107 08/15/18 10:53 POC Glucose 111 H EKG Reviewed by me: Yes (afib) Phys Exam - Physical Examination Constitutional: NAD HEENT: PERRLA, moist MMs, sclera anicteric Neck: no JVD, supple Respiratory: no wheezing, no rales, no rhonchi Cardiovascular: irregular SM+ at apex Gastrointestinal: soft, non-tender, no distention, positive bowel sounds Musculoskeletal: no edema, pulses present Neurological: non-focal, normal sensation, moves all 4 limbs Lymphatic: no nodes Psychiatric: normal affect, A&O x 3 Skin: no rash, normal turgor Dx/Plan (1) Acute on chronic diastolic ACC/AHA stage C congestive heart failure Code(s): I50.33 - ACUTE ON CHRONIC DIASTOLIC (CONGESTIVE) HEART FAILURE Status : Acute (2) Acute respiratory failure with hypoxia Code(s): J96.01 - ACUTE RESPIRATORY FAILURE WITH HYPOXIA Status: Resolved (3) Hypertensive urgency Code(s): I16.0 - HYPERTENSIVE URGENCY Status: Resolved (4) Diabetes type 2, controlled Code(s): E11.9 - TYPE 2 DIABETES MELLITUS WITHOUT COMPLICATIONS Status: Chronic (5) Dyslipidemia Code(s): E78.5 - HYPERLIPIDEMIA, UNSPECIFIED Status: Chronic (6) Hypertension Code(s): I10 - ESSENTIAL (PRIMARY) HYPERTENSION Status: Chronic (7) Hypothyroidism Code(s): E03.9 - HYPOTHYROIDISM, UNSPECIFIED Status: Chronic (8) Moderate aortic regurgitation Code(s): I35.1 - NONRHEUMATIC AORTIC (VALVE) INSUFFICIENCY Status: Chronic (9) Moderate mitral regurgitation Code(s): I34.0 - NONRHEUMATIC MITRAL (VALVE) INSUFFICIENCY Status: Chronic (10) Osteoarthritis Code(s): M19.90 - UNSPECIFIED OSTEOARTHRITIS, UNSPECIFIED SITE Status: Chronic (11) PAF (paroxysmal atrial fibrillation) Code(s): I48.0 - PAROXYSMAL ATRIAL FIBRILLATION Status: Chronic Comment: with paroxysmal RVR - Plan cont current plan of care * currently on cardizem drip * cardiology following * we are adjusting meds for BP and HR control * she has improvement * expecting discharge soon * medication reviewed as below * symptomatic treatment. Review of Systems - Review of Systems ENT: negative: Ear Pain, Ear Discharge, Nose Pain, Nose Discharge, Nose Congestion, Mouth Pain, Mouth Swelling, Throat Pain, Throat Swelling, Other Respiratory: negative: Cough, Dry, Shortness of Breath, Hemoptysis, SOB with Excertion, Pleuritic Pain, Sputum, Wheezing Cardiovascular: negative: chest pain, palpitations, orthopnea, paroxysmal nocturnal dyspnea, edema, light headedness, other Gastrointestinal: negative: Nausea, Vomiting, Abdominal Pain, Diarrhea, Constipation, Melena, Hematochezia, Other Genitourinary: negative: Dysuria, Frequency, Incontinence, Hematuria, Retention , Other Musculoskeletal: negative: Neck Pain, Shoulder Pain, Arm Pain, Back Pain, Hand Pain, Leg Pain, Foot Pain, Other - Medications/Allergies Allergies/Adverse Reactions: Allergies Allergy/AdvReac Type Severity Reaction Status Date / Time No Known Allergies Allergy Verified 08/14/18 10:11 Medications: Current Medications Acetaminophen (Tylenol) 650 mg PO Q4H PRN PRN Reason: Headache/Fever/Mild Pain (1-3) Aspirin (Ecotrin) 81 mg PO DAILY [facility] Last Admin: 08/16/18 08:49 Dose: 81 mg Carvedilol (Coreg) 12.5 mg PO BID-[facility] Dextrose/Water (Dextrose 50%) 25 gm SLOW IVP PRN PRN PRN Reason: Hypoglycemia Diltiazem HCl (Cardizem Cd) 360 mg PO DAILY [facility] Last Admin: 08/16/18 08:51 Dose: 360 mg Ezetimibe (Zetia) 10 mg PO HS [facility] Last Admin: 08/15/18 21:11 Dose: 10 mg Enoxaparin Sodium (Lovenox) 30 mg SC 0900 [facility] Last Admin: 08/16/18 08:51 Dose: 30 mg Furosemide (Lasix) 40 mg SLOW IVP 0600,1400 [facility] Last Admin: 08/16/18 06:14 Dose: 40 mg Glucagon (Glucagon) 1 mg IM PRN PRN PRN Reason: Hypoglycemia Hydralazine HCl (Apresoline) 10 mg SLOW IVP Q4H PRN PRN Reason: SBP > 180 and HR < 70 Azithromycin 500 mg/ Sodium (Chloride) 250 mls @ 250 mls/hr IVPB Q24HR [facility] Last Admin: 08/16/18 08:55 Dose: Not Given Dextrose/Water (D5w) 1,000 mls @ 0 mls/hr IV .Q0M PRN PRN Reason: Hypoglycemia Diltiazem HCl 125 mg/ Sodium (Chloride) 125 mls @ 10 mls/hr IVPB INF [facility]; Protocol Stop: 08/16/18 16:00 Insulin Human Lispro (Humalog) 0 units SC .MODERATE SLIDING SC PRN PRN Reason: Moderate Correctional Scale Insulin Human Lispro (Humalog) 0 units SC .BEDTIME SLIDING SC PRN PRN Reason: Bedtime Correctional Scale Levothyroxine Sodium (Synthroid) 100 mcg PO 0600 [facility] Last Admin: 08/16/18 06:14 Dose: 100 mcg Lisinopril (Zestril) 20 mg PO DAILY [facility] Last Admin: 08/16/18 08:57 Dose: 20 mg Nitroglycerin (Nitro-Bid 2% Ointment) 0.5 inch TOP Q8HR [facility] Last Admin: 08/16/18 06:14 Dose: 0.5 inch Pantoprazole Sodium (Protonix) 40 mg PO DAILY [facility] Last Admin: 08/16/18 08:51 Dose: 40 mg Potassium Chloride (K-Dur) 20 meq PO DAILY [facility] Last Admin: 08/16/18 08:52 Dose: 20 meq Rosuvastatin Calcium (Crestor) 40 mg PO HS [facility] Last Admin: 08/15/18 21:11 Dose: 40 mg Sodium Chloride (Flush - Normal Saline) 10 ml IVF Q12HR [facility] Last Admin: 08/16/18 08:48 Dose: Not Given Sodium Chloride (Flush - Normal Saline) 10 ml IVF PRN PRN PRN Reason: Saline Flush
[2018-08-16] MEDS: Ezetimibe 10 MG TAB PO SCH (21:07)
[2018-08-16] MEDS: Rosuvastatin 20 MG TAB PO SCH (21:07)
[2018-08-17] MEDS: Nitroglycerin 2% Ointment 1 INCH/1 GM Packet TOP SCH (06:26)
[2018-08-17] MEDS: Levothyroxine Sodium 100 MCG TAB PO SCH (06:26)
[2018-08-17] MEDS: Furosemide 40 MG/4 ML VIAL SLOW IVP SCH (06:27)
[2018-08-17] MEDS: Aspirin 81 mg Enteric Coated Tablet PO SCH (09:13)
[2018-08-17] MEDS: Potassium Chloride 20 MEQ TAB PO SCH (09:15)
[2018-08-17] MEDS: Carvedilol 6.25 MG TAB PO SCH (09:17)
[2018-08-17] MEDS: Lisinopril 20 MG TAB PO SCH (09:17)
[2018-08-17] MEDS: Enoxaparin Sodium 30 MG/0.3 ML SYRINGE SC SCH (09:18)
--- NOTE | 2018-08-17 09:21 | RAD ---
CHEST 1 VIEW: Date: 08/17/18 INDICATION: History of pulmonary edema. COMPARISON: Prior exam dated 08/06/18. FINDINGS: Cardiomegaly persists, but there is improvement in the pulmonary vascular congestion and perihilar in terstitial and air space edema. No pleural effusion is evident. No acute osseous abnormality is evide nt. IMPRESSION: Improvement in CHF. Cardiomegaly persists. There has been resolution of the perihilar edema. POS: CET
[2018-08-17 11:46] VITALS: BP 120/79; TEMP 98.2
--- NOTE | 2018-08-17 12:48 | PDOC.EVN ---
Event Note - Event Note Event Note: DC SUMMARY #[id number]
--- NOTE | 2018-08-18 04:07 | DIS ---
DATE OF ADMISSION: 08/14/2018 DATE OF DISCHARGE: 08/17/2018 ADMITTING DIAGNOSES: 1. Pulmonary edema. 2. Shortness of breath. 3. Hypothyroidism. 4. Congestive heart failure. 5. Atrial fibrillation. DISCHARGE DIAGNOSES: 1. Pulmonary edema, resolved. 2. Shortness of breath, resolved. 3. Congestive heart failure, stable. 4. Hypothyroidism, stable. 5. Atrial fibrillation, stable. HOSPITAL COURSE: This is a 73-year-old female, who admitted to the hospital complaining of shortness of breath and difficulty breathing. The patient was placed on a BiPAP, placed in the IMCU, seen by Internal Medicine Team as well as Cardiology and Pulmonary Teams. The patient was started on diuretics as well as steroids and antibiotics. The patient was observed in the hospital for a 3-day period. She was observed on the telemetry unit for about 24 hours. The patient upon the time of discharge was stable. Denied any nausea, vomiting, diarrhea, constipation, chest pain, fevers, or shortness of breath. The patient ambulated around the room without difficulty and no shortness of breath. The patient was discharged and was advised to follow up with PCP within 1 week as well as Cardiology within 1 week. The patient's diuretics were doubled . The patient's condition upon the time of discharge was stable. She was advised to follow a low-salt, low-calorie, high-fiber diet, as well as low-fat. Case plan discussed with the patient at length. She understood and agreed with this plan. DISPOSITION: Home. FOLLOWUP: Follow up with PCP within 1 week and Cardiology within 1 week. MEDICATIONS: See MAR. ACTIVITY: As tolerated with assistance as needed. CONDITION: Good. PROGNOSIS: Good. Case and plan once again discussed with the patient at length. She understood and agreed with this plan. Job ID: [id number]
== END 2018-08-17 14:00 | disposition home or self-care (01) | DRG 291 ==
LOC: ERS 05:30 → IMCU/EMU 08:14 → 2SE 08-15 18:39
PROVIDERS: ADMIT Hospitalist; ATTEND Hospitalist
PROC: 5A09357 Assistance with Respiratory Ventilation, Less than 24 Consecutive Hours, Continuous Positive Airway Pressure (ICD-10-PCS; principal; 2018-08-14)
DX: I11.0 Hypertensive heart disease with heart failure (principal); J96.01 Acute respiratory failure with hypoxia; E78.5 Hyperlipidemia, unspecified; E11.9 Type 2 diabetes mellitus without complications; E03.9 Hypothyroidism, unspecified; I16.0 Hypertensive urgency; I50.33 Acute on chronic diastolic (congestive) heart failure; E87.6 Hypokalemia; I48.0 Paroxysmal atrial fibrillation; I08.0 Rheumatic disorders of both mitral and aortic valves; M19.90 Unspecified osteoarthritis, unspecified site; F17.210 Nicotine dependence, cigarettes, uncomplicated; Z90.710 Acquired absence of both cervix and uterus; Z79.82 Long term (current) use of aspirin; Z79.84 Long term (current) use of oral hypoglycemic drugs
CPT/HCPCS: 36415; 36416; 71045; 80048; 80053; 80061; 82553; 82805; 83605; 83880; 84443; 84484; 85025; 93005; 93306; 93798; 94640; 94660; 96365; 96375; 99406; J0456; J0696; J1650; J1940; J3490; J7050; J7620

== ENCOUNTER 2019-03-15 18:24 | Inpatient (IN) | payer MEDICARE, MEDICAID ==
[2019-03-15 19:17] LABS: #Basophils 0.1 thou/uL (0.0-0.2); #Eosinphils 0.1 thou/uL (0.0-0.7); #Lymphocytes 1.9 thou/uL (1.20-3.40); #Monocytes 0.6 thou/uL (0.11-0.59); #Neutrophils 5.5 thou/uL (1.40-6.50); %Basophils 1.1 % (0.0-1.0); %Eosinophils 0.7 % (0.0-10.0); %Lymphocytes 22.8 % (21.0-51.0); %Monocytes 7.8 % (0.0-10.0); %Neutrophils 67.6 % (42.0-75.0); Hemoglobin 14.1 g/dL (12.0-16.0); Mean Corpuscular HGB CONC 33.8 g/dL (32.0-36.0); Mean Corpuscular Hemoglobin 32.8 pg (27.0-31.0); Mean Corpuscular Volume 97.1 fL (78.0-98.0); Mean Platelet Volume 8.1 fL (7.4-10.4); Platelet Count 235 thou/uL (130-400); RBC Distribution Width 12.2 % (11.5-14.5); White Blood Cell (WBC) Count 8.2 thou/uL (4.8-10.8)
--- NOTE | 2019-03-15 19:33 | RAD ---
Portable frontal chest radiograph: 03/15/2019 COMPARISON: 08/14/2018 HISTORY: Pain FINDINGS: Stable enlargement of the cardiac silhouette. Stable prominence of the aortic knob. No pneu mothorax or pleural fluid. No focal consolidation or alveolar edema. IMPRESSION: No focal consolidation or alveolar edema.
[2019-03-15 19:39] LABS: ALT (SGPT) 38 U/L (8-55); AST (SGOT) 37 U/L (5-34); Albumin 4.4 g/dL (3.4-4.8); Alkaline Phosphatase 79 U/L (40-110); Anion Gap 15 mmol/L (10-20); BUN (Urea Nitrogen) 9 mg/dL (9.8-20.1); Bilirubin, Total 0.6 mg/dL (0.2-1.2); CK (CPK) 139 U/L (29-168); Calc. Creatinine Clearance 0 mL/min (70-130); Calcium 9.3 mg/dL (7.8-10.44); Carbon Dioxide 23 mmol/L (23-31); Chloride 105 mmol/L (98-107); Estimated GFR-MDRD 58; Globulin 2.6 g/dL (2.4-3.5); Glucose 193 mg/dL (83-110); Lipase 9 U/L (8-78); Potassium 3.9 mmol/L (3.5-5.1); Sodium 139 mmol/L (136-145)
[2019-03-15] MEDS ORDERED: Aspirin 325 MG TAB ONE (19:51)
[2019-03-15 20:52] LABS: Bilirubin Negative (Negative); Blood, Urine Negative (Negative); Clarity Clear (Clear); Glucose, Urine (Dipstick) 50 mg/dL (Negative); Leukocyte Negative Leu/uL (Negative); Nitrite Negative (Negative); Protein, Urine (Dipstick) 50 mg/dL (Neg-Trace); RBC/HPF 0-3 HPF (0-3); Squamous Epithelial None Seen HPF (0-3); Urobilinogen Normal mg/dL (Less than 2); WBC/HPF 0-3 HPF (0-3)
[2019-03-15 21:00] LABS: Bacteria/HPF Rare-Few HPF (None Seen)
[2019-03-15] MEDS ORDERED: Diltiazem HCl 125 MG, Admixture Fee 1 EACH in Sodium Chloride 0.9% 100 ML IVPB SCH (21:15)
[2019-03-15 22:54] LABS: Lactic Acid 1.6 mmol/L (0.5-2.2)
--- NOTE | 2019-03-15 23:33 | HP ---
PRIMARY CARE PROVIDER: Elyse Tam MD. CHIEF COMPLAINT: Shortness of breath and palpitations. HISTORY OF PRESENT ILLNESS: This is a 73-year-old female, who presents to [facility] Emergency Department complaining of increased shortness of breath, fatigue, and palpitations over the last 48 hours. The patient also complained of right-sided abdominal pain, worse with deep breath or movement. The patient denied any trauma injury, documented fever, chills, or travel history. The patient denies any family members with similar symptoms. The patient denied any recent vaccinations or change to her chronic medication regimen. The patient states her last bowel movement was within the last 24 hours and normal for her. The patient denied any dysuria, diarrhea, or melena. The patient admits to increased shortness of breath at rest with cough and no sputum production. The patient states she has not take any home medications for alleviating her symptoms. In the emergency room, the patient underwent general evaluation including chest imaging showing no acute infiltrate. EKG was notable for atrial fibrillation with rapid ventricular response with heart rates in the 140s. The patient received IV diltiazem, aspirin 325 mg x1, and intravenous normal saline. The patient states she has a long-standing history of paroxysmal atrial fibrillation, medically managed. The patient states she was previously on anticoagulation with Xarelto, however, had a GI bleed when at which point she was deemed high risk for ongoing anticoagulation and recommended for aspirin therapy only. PAST MEDICAL HISTORY: 1. Paroxysmal atrial fibrillation, medically managed. 2. Diabetes mellitus type 2, on oral hypoglycemics. 3. Hypothyroidism. 4. Osteoarthritis. 5. Hypertension. 6. Cardiomyopathy. 7. History of GI bleed on Xarelto. 8. Tobacco abuse. PAST SURGICAL HISTORY: 1. Status post hysterectomy. 2. Status post breast biopsy. CURRENT MEDICATIONS: Medication reviewed from admission in July 2018: 1. Lisinopril 40 mg p.o. daily. 2. Clonidine 0.1 mg p.o. b.i.d. 3. Metformin 500 mg p.o. daily. 4. Aspirin 81 mg p.o. daily. 5. Levothyroxine 100 mcg p.o. daily. 6. Cardizem 180 mg 2 tablets p.o. daily. 7. Carvedilol 6.25 mg p.o. b.i.d. 8. Tramadol 50 mg p.o. q.8 hours p.r.n. 9. Crestor 40 mg p.o. daily. 10. Lasix 40 mg p.o. daily. 11. Potassium chloride 40 mEq p.o. daily. 12. Omeprazole 40 mg p.o. daily. ALLERGIES: NO KNOWN DRUG ALLERGIES. FAMILY HISTORY: Positive for coronary artery disease and a sister with stomach cancer. SOCIAL HISTORY: Common-law marriage. Four children. Resides in the [facility]. Smokes up to half a pack of cigarettes daily. No alcohol or illicit drug use. REVIEW OF SYSTEMS: CONSTITUTIONAL: Negative for weight loss or gain, ability to conduct usual activities. SKIN: Negative for rash, itching. EYES: Negative for double vision, pain. ENT/MOUTH: Negative for nose bleeding, neck stiffness, pain, tenderness. CARDIOVASCULAR: Negative for palpitations, dyspnea on exertion, orthopnea. RESPIRATORY: Negative for shortness of breath, wheezing, cough, hemoptysis, fever or night sweats. GASTROINTESTINAL: Negative for poor appetite, abdominal pain, heartburn, nausea, vomiting, constipation, or diarrhea. GENITOURINARY: Negative for urgency, frequency, dysuria, nocturia. MUSCULOSKELETAL: Negative for pain, swelling. NEUROLOGIC/PSYCHIATRIC: Negative for anxiety, depression. ALLERGY/IMMUNOLOGIC: Negative for skin rash, bleeding tendency. Otherwise negative except as stated per HPI. PHYSICAL EXAMINATION: VITAL SIGNS ON ADMISSION: Blood pressure 162/116, pulse 136, respiratory rate 24, temperature 99.5 degrees Fahrenheit, O2 saturation 94% on room air. GENERAL APPEARANCE: This is a 73-year-old female, alert and oriented x3, pleasant, responsive, in no acute distress. HEENT: Pupils are equal, round and reactive to light and accommodation. Extraocular muscles are intact. No scleral icterus. No conjunctival injection. Nares patent. OP is clear. Teeth in fair repair. NECK: Supple. No cervical adenopathy. No thyromegaly. No carotid bruits. No JVD appreciated. Cervical spine with full active and passive range of motion. No meningeal signs noted. CHEST: Diminished breath sounds in the bases bilaterally with occasional expiratory wheeze. CARDIOVASCULAR: S1-S2 with irregular rate and rhythm. Positive tachycardia. ABDOMEN: Rounded, soft, nontender, and nondistended. Bowel sounds are positive in all 4 quadrants. There is no hepatosplenomegaly. No abdominal bruits. No rebound or guarding appreciated. EXTREMITIES: Warm and dry with fair turgor. No clubbing, cyanosis, or asymmetric edema appreciated. Pulses palpable distally at the dorsalis pedis, posterior tibial, and popliteal arteries bilaterally. Capillary refill less than 2 seconds. NEUROLOGIC: Cranial nerves 2 through 12 are grossly intact. No focal or lateralizing signs appreciated. PERTINENT LABORATORY AND X-RAY FINDINGS: Sodium 139, potassium 3.9, chloride 105, CO2 of 23, BUN 9, creatinine 1.12, estimated GFR 58, glucose 193. Lactic acid level 2.3, calcium 9.3, AST 37, ALT of 38, alkaline phosphatase 79, albumin 4.4, lipase 9. CBC showed a white blood cell count of 8.2, hemoglobin 14, hematocrit 42, platelet count 235 with 68% neutrophils. Urinalysis positive protein. IMAGIN. Portable chest x-ray dated 03/15/2019, showed no acute cardiopulmonary process. 2. EKG dated 03/15/2019, by my interpretation shows atrial fibrillation with heart rates in the 140s. Normal R-wave progression noted in the precordial leads. Normal axis. ASSESSMENT/PLAN: 1. Atrial fibrillation with rapid ventricular response. The patient will be admitted to the telemetry unit. We will continue diltiazem infusion at 10 mg/hour. Check 2D transthoracic echocardiogram. Continue aspirin 325 mg p.o. daily. Consult Cardiology Service in the a.m. Check magnesium and TSH level. 2. Acute dyspnea secondarily to #1. Continue general pulmonary supportive management. No infiltrate noted on chest imaging. 3. Hypertension. Resume home antihypertensive regimen and monitor clinical response. Hydralazine p.r.n. for systolics greater than or equal to 170. 4. Diabetes mellitus type 2. Insulin sliding scale for reflexive coverage. Serial Accu-Cheks before meals and at bedtime. ADA diet. 5. Hypothyroidism. Check TSH and free T4 level in the a.m. Resume home levothyroxine and monitor clinical response. 6. Prophylaxis. Sequential compression devices while in bed. 7. Pepcid 20 mg p.o. b.i.d. CODE STATUS: Full. Surrogate medical decision maker is the patient's daughter. Job ID: [id number]
[2019-03-15] MEDS ORDERED: Ondansetron PF 4 MG/2 ML Vial IVP PRN (23:54)
[2019-03-15] MEDS ORDERED: Ondansetron ODT 4 MG TAB PO PRN (23:54)
[2019-03-15] MEDS ORDERED: HumaLOG 300 UNITS/3 ML VIAL SC PRN (23:54)
[2019-03-15] MEDS ORDERED: Dextrose 5% in Water 1,000 ML IV PRN (23:54)
[2019-03-15] MEDS ORDERED: Dextrose 50% Abboject 50 ML SYRINGE SLOW IVP PRN (23:54)
[2019-03-16] MEDS: hydrALAZINE 20 MG/ML VIAL SLOW IVP PRN ×2 (01:01→07:25)
[2019-03-16] MEDS ORDERED: Diltiazem HCl 125 MG, Admixture Fee 1 EACH in Sodium Chloride 0.9% 100 ML IVPB SCH ×3 (02:15→14:05)
[2019-03-16 06:31] LABS: Anion Gap 13 mmol/L (10-20); BUN (Urea Nitrogen) 8 mg/dL (9.8-20.1); Calc. Creatinine Clearance 64 mL/min (70-130); Calcium 9.3 mg/dL (7.8-10.44); Carbon Dioxide 23 mmol/L (23-31); Chloride 106 mmol/L (98-107); Estimated GFR-MDRD 77; Glucose 152 mg/dL (83-110); Magnesium 1.6 mg/dL (1.6-2.6); Potassium 3.1 mmol/L (3.5-5.1); Sodium 139 mmol/L (136-145)
[2019-03-16 06:33] LABS: Band 2 % (5-11); Hemoglobin 14.3 g/dL (12.0-16.0); Lymphocytes 8 % (21-51); MDiff Complete? YES; Mean Corpuscular HGB CONC 34.8 g/dL (32.0-36.0); Mean Corpuscular Hemoglobin 33.4 pg (27.0-31.0); Mean Platelet Volume 8.7 fL (7.4-10.4); Monocytes 2 % (0-10); Neutrophil 86 % (42-75); Platelet Count 227 thou/uL (130-400); Platelet Morphology Comment Appears Adequate; RBC Distribution Width 12.2 % (11.5-14.5); RBC Morphology Normal; Reactive Lymphocytes 2 % (0-10); Red Blood Cell (RBC) Count 4.28 mill/uL (4.20-5.40); White Blood Cell (WBC) Count 10.4 thou/uL (4.8-10.8)
[2019-03-16 06:51] LABS: Free T4 (Free Thyroxine) 1.26 ng/dL (0.70-1.48); Thyroid Stimulating Hormone 1.5287 uIU/mL (0.35-4.94)
[2019-03-16] MEDS: Aspirin 325 mg Enteric Coated Tablet PO SCH (08:49)
[2019-03-16] MEDS ORDERED: Prevnar 13-Val Conj/PF 0.5 ML SYRINGE IM ONE (09:00)
[2019-03-16] MEDS ORDERED: Famotidine 20 MG TAB PO SCH (09:00)
[2019-03-16] MEDS: HumaLOG 300 UNITS/3 ML VIAL SC PRN ×2 (11:05→17:17)
[2019-03-16] MEDS ORDERED: Loratadine 10 MG TAB PO PRN (11:47)
--- NOTE | 2019-03-16 11:50 | PDOC.HOSPP ---
- Subjective Encounter Date: 03/16/19 (f/u a fib with RVR) Encounter Time: 11:49 Subjective: pt c/o a cold in her stomach, spitting up fluid, nausea, and left sided pain. Denies any palpiations. Reports she has a hx of GI bleed on Xarelto in 2015 - Objective Vital Signs & Weight: Vital Signs (12 hours) Temp Pulse Resp BP Pulse Ox 03/16/19 09:00 140/84 03/16/19 08:00 99.1 F 130 H 18 156/111 H 99 03/16/19 04:00 99.0 F 112 H 18 156/107 H 98 03/16/19 01:01 106 H 03/16/19 00:55 106 H 181/102 H 03/16/19 00:40 98 03/15/19 23:52 91 143/89 H Weight Admit Weight 156 lb 7 oz Weight 156 lb 7 oz Result Diagrams: 03/16/19 05:08 03/16/19 05:08 Additional Labs: Accuchecks 03/16/19 03/16/19 10:39 05:54 POC Glucose 250 H 174 H EKG Reviewed by me: Yes (a fib with rates 110-150's) Hospitalist ROS - Medication Medications: Active Medications Generic Name Dose Route Start Last Admin Trade Name Freq PRN Reason Stop Dose Admin Aspirin 325 mg 03/16/19 09:00 03/16/19 08:49 Ecotrin PO 325 mg DAILY [facility] Administration Hydralazine HCl 10 mg 03/15/19 23:54 03/16/19 07:25 Apresoline SLOW IVP 10 mg Q4H PRN Administration SBP > 180 and HR < 70 Insulin Human Lispro 0 units 03/15/19 23:54 03/16/19 11:05 Humalog SC 3 unit .MILD SLIDING SCALE PRN Administration Mild Correctional Scale Ondansetron HCl 4 mg 03/15/19 23:54 03/16/19 11:09 Zofran Odt PO 4 mg Q6H PRN Administration Nausea/Vomiting Sodium Chloride 10 ml 03/16/19 09:00 03/16/19 08:50 Flush - Normal Saline IVF Not Given Q12HR [facility] - Exam General Appearance: NAD General - other findings: appears uncomfortable, not in distress Heart - other findings: tachy, irregular Respiratory: CTAB, no wheezes, no rales, no ronchi Gastrointestinal: soft, non-tender, non-distended, normal bowel sounds Gastrointestinal - other findings: pt points to left mid-axillary as location for pain -no ttp or palp abnorm Psychiatric: normal affect Hosp A/P (1) Atrial fibrillation with RVR Code(s): I48.91 - UNSPECIFIED ATRIAL FIBRILLATION Status: Acute (2) Nausea Code(s): R11.0 - NAUSEA Status: Acute (3) Diabetes type 2, controlled Code(s): E11.9 - TYPE 2 DIABETES MELLITUS WITHOUT COMPLICATIONS Status: Chronic Qualifiers: Diabetes mellitus 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 exterminator insulin use: without termite exterminator use (4) Dyslipidemia Code(s): E78.5 - HYPERLIPIDEMIA, UNSPECIFIED Status: Chronic (5) Hypertension Code(s): I10 - ESSENTIAL (PRIMARY) HYPERTENSION Status: Chronic (6) Hypothyroidism Code(s): E03.9 - HYPOTHYROIDISM, UNSPECIFIED Status: Chronic (7) Hypokalemia Code(s): E87.6 - HYPOKALEMIA Status: Acute - Plan A fib with RVR - increase dilt to 15 mg/hr - resume carvedilol 25 mg bid - first dose now - hold home oral dilt - echo performed, cards consult ordered htn - not optimally controlled - resume lower dose than home of lisinopril - resume carvedilol - prn hydralazine hypothyroid - normal tsh, continue replacement dm 2 - controlled nausea and what is described as post-nasal drip - claritin one dose now and prn replace potassium dvt prophy - on scd's, pt has not been a candidate for full anti-coag due to hx of GI bleed, continue daily aspirin gi prophy - on ppi at home, continue here code status full reviewed plan of care with patient, no questions or further needs at end of eval
[2019-03-16] MEDS: Acetaminophen 500 MG TAB PO PRN (11:53)
[2019-03-16] MEDS ORDERED: Loratadine 10 MG TAB PO SCH (12:00)
[2019-03-16] MEDS ORDERED: Carvedilol 25 MG TAB PO SCH (12:00)
[2019-03-16] MEDS ORDERED: Metoprolol Tartrate 5 MG/5 ML VIAL IVP SCH (13:13)
[2019-03-16] MEDS: Carvedilol 25 MG TAB PO SCH (20:22)
[2019-03-16] MEDS: Rosuvastatin 20 MG TAB PO SCH (20:22)
[2019-03-16] MEDS: Lisinopril 20 MG TAB PO SCH (20:23)
--- NOTE | 2019-03-16 20:24 | CON ---
DATE OF CONSULTATION: 03/16/2019 REASON FOR CONSULTATION: Atrial fibrillation with a rapid ventricular response, hypertension. PRIMARY STEAM BOX OPERATOR: Mikhail Greer MD HISTORY OF PRESENT ILLNESS: Ms. Pressley is a very pleasant 73-year-old woman. She has a long cardiac history. She initially was seen by Dr. Greer many years ago. She had severe iron deficiency anemia, thought due to vaginal blood loss with a hemoglobin extremely depressed and hematocrit less than 10. She has had recurrent episodes of severe iron deficiency anemia. She also has been tried on Xarelto, but had gastrointestinal bleeding on Xarelto and is thought not to be a candidate for anticoagulation. She has had paroxysmal atrial fibrillation over the years, which has been adequately controlled with diltiazem and carvedilol. The patient came to the hospital on this occasion with weakness and fatigue, found to have heart rate of approximately 140 beats per minute, atrial fibrillation. No chest pain or pressure, just feels weak. The patient does have history of previous cardiac catheterization showing normal coronary arteries. MEDICATIONS: At home, she was on 1. Carvedilol 12.5 mg twice a day. 2. Diltiazem 360 mg a day. 3. Lisinopril 40 mg a day. 4. Potassium. 5. Rosuvastatin. 6. Levothyroxine. 7. Aspirin 81 mg a day. ALLERGIES: NONE KNOWN. SOCIAL HISTORY: No alcohol or tobacco abuse. REVIEW OF SYSTEMS: GENERAL: Positive for weakness and fatigue. VISION: No changes. HEARING: No changes. PULMONARY: No cough or wheezing. GASTROINTESTINAL: No nausea, vomiting, or diarrhea. SKIN: No rashes. NEUROLOGIC: No unilateral weakness or numbness. PSYCHIATRIC: No unusual depression or anxiety. FAMILY HISTORY: Negative for heart disease at a young age. PHYSICAL EXAMINATION: GENERAL: This is a very pleasant, elderly woman. VITAL SIGNS: Blood pressure 156/110, pulse is 120-140, atrial fibrillation. EYES: Sclerae, nonicteric. MOUTH: Mucous membranes moist. NECK: Supple. No lymphadenopathy. LUNGS: Clear. CARDIAC: She is tachycardic and irregular. No murmur, rub, or gallop. ABDOMEN: Soft, nontender. EXTREMITIES: No clubbing, no cyanosis, no significant edema. SKIN: Warm and dry. PSYCHIATRIC: Mood and affect normal. NEUROLOGIC: Grossly normal. PERTINENT LABORATORY DATA: Potassium is 3.1, hemoglobin is 14.3. EKG, atrial fibrillation with a rapid rate. ASSESSMENT: 1. Atrial fibrillation with a rapid rate. 2. Most recent ejection fraction of 50% to 55%. 3. History of normal coronary arteries. 4. History of gastrointestinal bleeding with anticoagulation. PLAN: 1. She is on intravenous diltiazem currently. 2. We will give her 5 mg of Lopressor IV. 3. Carvedilol, increase dose to 25 mg twice a day. She appeared to be taking 12.5 twice a day at home. 4. Increase lisinopril to 20 mg twice a day. Glad to follow with you. Dr. Greer did indicate that if the rates cannot be controlled, amiodarone could be another option. Job ID: [id number]
[2019-03-17 04:48] LABS: #Lymphocytes 1.3 thou/uL (1.20-3.40); #Monocytes 1.2 thou/uL (0.11-0.59); #Neutrophils 11.5 thou/uL (1.40-6.50); %Basophils 0.1 % (0.0-1.0); %Eosinophils 0.1 % (0.0-10.0); %Lymphocytes 9.2 % (21.0-51.0); %Monocytes 8.8 % (0.0-10.0); %Neutrophils 81.8 % (42.0-75.0); Hemoglobin 13.5 g/dL (12.0-16.0); Mean Corpuscular HGB CONC 34.2 g/dL (32.0-36.0); Mean Corpuscular Hemoglobin 32.9 pg (27.0-31.0); Mean Corpuscular Volume 96.2 fL (78.0-98.0); Mean Platelet Volume 8.7 fL (7.4-10.4); Platelet Count 221 thou/uL (130-400); RBC Distribution Width 12.2 % (11.5-14.5); White Blood Cell (WBC) Count 14.1 thou/uL (4.8-10.8)
[2019-03-17 05:08] LABS: Anion Gap 16 mmol/L (10-20); BUN (Urea Nitrogen) 19 mg/dL (9.8-20.1); Calc. Creatinine Clearance 41 mL/min (70-130); Calcium 9.6 mg/dL (7.8-10.44); Carbon Dioxide 20 mmol/L (23-31); Chloride 104 mmol/L (98-107); Estimated GFR-MDRD 47; Glucose 131 mg/dL (83-110); Magnesium 1.8 mg/dL (1.6-2.6); Potassium 3.7 mmol/L (3.5-5.1); Sodium 136 mmol/L (136-145)
[2019-03-17] MEDS ORDERED: Metoprolol Tartrate 5 MG/5 ML VIAL IVP SCH (05:30)
[2019-03-17] MEDS: Amiodarone 450 MG, Admixture Fee 1 EACH in Dextrose 5% in Water 250 ML IVPB SCH ×2 (05:44→14:41)
[2019-03-17] MEDS: Levothyroxine Sodium 100 MCG TAB PO SCH (08:25)
[2019-03-17] MEDS: Carvedilol 25 MG TAB PO SCH ×2 (08:25→21:40)
[2019-03-17] MEDS: metFORMIN 500 MG TAB PO SCH (08:25)
[2019-03-17] MEDS: Lisinopril 20 MG TAB PO SCH (08:25)
[2019-03-17] MEDS: Aspirin 325 mg Enteric Coated Tablet PO SCH (08:25)
[2019-03-17] MEDS ORDERED: Lisinopril 20 MG TAB PO SCH (09:00)
[2019-03-17] MEDS ORDERED: Potassium Chloride 20 MEQ TAB PO SCH (09:00)
[2019-03-17] MEDS: HumaLOG 300 UNITS/3 ML VIAL SC PRN (11:54)
--- NOTE | 2019-03-17 13:49 | PDOC.HOSPP ---
- Subjective Encounter Date: 03/17/19 (f/u a fib with rvr) Encounter Time: 13:48 Subjective: pt reports feeling better today. She states she has a productive cough, denies any n/v/abd sx today. Overnight HR increased to 150-180's adn she was started on an amiodarone gtt. - Objective Vital Signs & Weight: Vital Signs (12 hours) Temp Pulse Resp BP Pulse Ox 03/17/19 11:56 98.8 F 88 18 107/74 95 03/17/19 08:19 99.1 F 110 H 18 137/105 H 94 L 03/17/19 08:00 93 L 03/17/19 03:19 98.2 F 114 H 14 153/90 H 95 Weight Admit Weight 156 lb 7 oz Weight 159 lb 4 oz I&O: 03/16/19 03/17/19 03/18/19 06:59 06:59 06:59 Intake Total 350 Balance 350 Result Diagrams: 03/17/19 04:18 03/17/19 04:18 Additional Labs: Accuchecks 03/17/19 03/16/19 03/16/19 05:32 20:23 16:44 POC Glucose 142 H 164 H 294 H EKG Reviewed by me: Yes (tele - a fib/flutter with rates 100-110's) Hospitalist ROS - Medication Medications: Active Medications Generic Name Dose Route Start Last Admin Trade Name Freq PRN Reason Stop Dose Admin Acetaminophen 1,000 mg 03/15/19 23:54 03/16/19 11:53 Tylenol PO 1,000 mg Q6H PRN Administration Mild Pain (1-3) Aspirin 325 mg 03/16/19 09:00 03/17/19 08:25 Ecotrin PO 325 mg DAILY [facility] Administration Carvedilol 25 mg 03/16/19 21:00 03/17/19 08:25 Coreg PO 25 mg BID [facility] Administration Hydralazine HCl 10 mg 03/15/19 23:54 03/16/19 07:25 Apresoline SLOW IVP 10 mg Q4H PRN Administration SBP > 180 and HR < 70 Diltiazem HCl 125 mg/ 125 mls @ 10 mls/hr 03/16/19 14:05 03/16/19 23:00 Miscellaneous Medication 1 IVPB 125 mls each/ Sodium Chloride INF [facility] Administration Protocol Amiodarone HCl 450 mg/ 259 mls @ 0 mls/hr 03/17/19 05:30 03/17/19 05:44 Miscellaneous Medication 1 IVPB 259 mls each/ Dextrose/Water INF [facility] Administration Protocol As Directed Insulin Human Lispro 0 units 03/15/19 23:54 03/17/19 11:54 Humalog SC 2 unit .MILD SLIDING SCALE PRN Administration Mild Correctional Scale Levothyroxine Sodium 100 mcg 03/17/19 09:00 03/17/19 08:25 Synthroid PO 100 mcg QAM [facility] Administration Lisinopril 20 mg 03/16/19 21:00 03/17/19 08:25 Zestril PO 20 mg BID [facility] Administration Metformin HCl 500 mg 03/17/19 09:00 03/17/19 08:25 Glucophage PO 500 mg DAILY [facility] Administration Ondansetron HCl 4 mg 03/15/19 23:54 03/16/19 11:09 Zofran Odt PO 4 mg Q6H PRN Administration Nausea/Vomiting Pantoprazole Sodium 40 mg 03/17/19 09:00 03/17/19 08:25 Protonix PO 40 mg DAILY [facility] Administration Potassium Chloride 40 meq 03/17/19 09:00 03/17/19 08:25 K-Dur PO 40 meq DAILY [facility] Administration Rosuvastatin Calcium 40 mg 03/16/19 21:00 03/16/19 20:22 Crestor PO 40 mg HS [facility] Administration Sodium Chloride 10 ml 03/16/19 09:00 03/17/19 08:26 Flush - Normal Saline IVF Not Given Q12HR [facility] - Exam General Appearance: NAD Heart: no murmur, irregular Respiratory: CTAB, no wheezes, no rales, no ronchi Gastrointestinal: soft, non-tender, non-distended, normal bowel sounds Psychiatric: normal affect Hosp A/P (1) Atrial fibrillation with RVR Code(s): I48.91 - UNSPECIFIED ATRIAL FIBRILLATION Status: Acute (2) Nausea Code(s): R11.0 - NAUSEA Status: Acute (3) Diabetes type 2, controlled Code(s): E11.9 - TYPE 2 DIABETES MELLITUS WITHOUT COMPLICATIONS Status: Chronic Qualifiers: Diabetes mellitus terminal press operator insulin use: without terminal press operator use (4) Dyslipidemia Code(s): E78.5 - HYPERLIPIDEMIA, UNSPECIFIED Status: Chronic (5) Hypertension Code(s): I10 - ESSENTIAL (PRIMARY) HYPERTENSION Status: Chronic (6) Hypothyroidism Code(s): E03.9 - HYPOTHYROIDISM, UNSPECIFIED Status: Chronic (7) Hypokalemia Code(s): E87.6 - HYPOKALEMIA Status: Acute - Plan A fib with RVR - appreciate Cardiology consult -on dilt gtt, amio gtt, and home meds - adjusted for improved bp control Creatinine slightly elevated today - uncertain if related to this hospitalization - lisinopril changed to once daily - lasix started by cardiology - they will d/c - closely follow htn - improved today hypothyroid - normal tsh, continue replacement dm 2 - controlled nausea and what is described as post-nasal drip - resolved add prn bowel meds PT/OT dvt prophy - on scd's, pt has not been a candidate for full anti-coag due to hx of GI bleed, continue daily aspirin gi prophy - on ppi at home, continue here code status full reviewed plan of care with patient, no questions or further needs at end of eval
[2019-03-17] MEDS ORDERED: Polyethylene Glycol 3350 17 GM Packet PO PRN (13:53)
[2019-03-17] MEDS ORDERED: Diltiazem HCl 125 MG, Admixture Fee 1 EACH in Sodium Chloride 0.9% 100 ML IVPB SCH (13:53)
[2019-03-17] MEDS ORDERED: Docusate 100 MG CAP PO PRN (13:53)
[2019-03-17] MEDS: Rosuvastatin 20 MG TAB PO SCH (21:40)
[2019-03-18 05:01] LABS: #Basophils 0.1 thou/uL (0.0-0.2); #Lymphocytes 0.9 thou/uL (1.20-3.40); #Monocytes 0.8 thou/uL (0.11-0.59); #Neutrophils 10.3 thou/uL (1.40-6.50); %Basophils 0.5 % (0.0-1.0); %Eosinophils 0.3 % (0.0-10.0); %Lymphocytes 7.5 % (21.0-51.0); %Monocytes 6.6 % (0.0-10.0); Hemoglobin 12.8 g/dL (12.0-16.0); Mean Corpuscular HGB CONC 34.2 g/dL (32.0-36.0); Mean Corpuscular Volume 96.4 fL (78.0-98.0); Mean Platelet Volume 8.3 fL (7.4-10.4); Platelet Count 206 thou/uL (130-400); RBC Distribution Width 12.4 % (11.5-14.5); Red Blood Cell (RBC) Count 3.89 mill/uL (4.20-5.40); White Blood Cell (WBC) Count 12.1 thou/uL (4.8-10.8)
[2019-03-18 05:32] LABS: Anion Gap 12 mmol/L (10-20); BUN (Urea Nitrogen) 21 mg/dL (9.8-20.1); Calc. Creatinine Clearance 41 mL/min (70-130); Carbon Dioxide 23 mmol/L (23-31); Chloride 101 mmol/L (98-107); Estimated GFR-MDRD 45; Glucose 127 mg/dL (83-110); Sodium 132 mmol/L (136-145)
[2019-03-18] MEDS: Amiodarone 450 MG, Admixture Fee 1 EACH in Dextrose 5% in Water 250 ML IVPB SCH (05:43)
[2019-03-18] MEDS ORDERED: Furosemide 40 MG TAB PO SCH (07:30)
[2019-03-18] MEDS: Potassium Chloride 20 MEQ TAB PO SCH (08:40)
[2019-03-18] MEDS: Carvedilol 25 MG TAB PO SCH ×2 (08:40→21:14)
[2019-03-18] MEDS: Lisinopril 20 MG TAB PO SCH (08:40)
[2019-03-18] MEDS: Levothyroxine Sodium 100 MCG TAB PO SCH (08:40)
[2019-03-18] MEDS: metFORMIN 500 MG TAB PO SCH (08:40)
[2019-03-18] MEDS: Aspirin 325 mg Enteric Coated Tablet PO SCH (08:41)
[2019-03-18] MEDS: Acetaminophen 500 MG TAB PO PRN ×2 (08:43→21:17)
[2019-03-18] MEDS ORDERED: cefTRIAXone\\ROCEPHIN 1 GM in Sodium Chloride 0.9% 100 ML IVPB SCH (09:00)
[2019-03-18] MEDS ORDERED: Doxycycline 100 MG CAP PO SCH (09:00)
[2019-03-18] MEDS ORDERED: Azithromycin 500 MG in Sodium Chloride 0.9% 250 ML 250 ML IVPB SCH (09:00)
--- NOTE | 2019-03-18 09:02 | PDOC.HOSPP ---
- Subjective Encounter Date: 03/18/19 Encounter Time: 15:10 Subjective: Patient with new productive cough yesterday, fever to 101 today. Not feeling bad. Denies any respiratory symptoms prior to that though blood cultures and flu were done in the ER for some reason. Due to the new symptoms and sepsis this AM will recheck flu, CXR, blood cultures. - Objective Vital Signs & Weight: Vital Signs (12 hours) Temp Pulse Resp BP Pulse Ox 03/18/19 07:40 101.2 F H 84 22 H 131/78 92 L 03/18/19 04:00 97.4 F L 81 18 139/71 97 Weight Admit Weight 156 lb 7 oz Weight 157 lb 14.4 oz I&O: 03/17/19 03/18/19 03/19/19 06:59 06:59 06:59 Intake Total 350 1046 Balance 350 1046 Result Diagrams: 03/18/19 04:35 03/18/19 04:35 Additional Labs: Accuchecks 03/18/19 03/17/19 05:55 20:35 POC Glucose 127 H 146 H Hospitalist ROS - Review of Systems Constitutional: reports: fever. denies: chills Respiratory: reports: cough. denies: shortness of breath Cardiovascular: denies: chest pain, palpitations, orthopnea Gastrointestinal: denies: nausea, vomiting, abdominal pain - Medication Medications: Active Medications Generic Name Dose Route Start Last Admin Trade Name Freq PRN Reason Stop Dose Admin Acetaminophen 1,000 mg 03/15/19 23:54 03/18/19 08:43 Tylenol PO 1,000 mg Q6H PRN Administration Mild Pain (1-3) Aspirin 325 mg 03/16/19 09:00 03/18/19 08:41 Ecotrin PO 325 mg DAILY [facility] Administration Carvedilol 25 mg 03/16/19 21:00 03/18/19 08:40 Coreg PO 25 mg BID [facility] Administration Hydralazine HCl 10 mg 03/15/19 23:54 03/16/19 07:25 Apresoline SLOW IVP 10 mg Q4H PRN Administration SBP > 180 and HR < 70 Amiodarone HCl 450 mg/ 259 mls @ 0 mls/hr 03/17/19 05:30 03/18/19 05:43 Miscellaneous Medication 1 IVPB 259 mls each/ Dextrose/Water INF [facility] Administration Protocol As Directed Diltiazem HCl 125 mg/ 125 mls @ 5 mls/hr 03/17/19 13:53 03/17/19 14:40 Miscellaneous Medication 1 IVPB 125 mls each/ Sodium Chloride INF [facility] Administration Protocol Insulin Human Lispro 0 units 03/15/19 23:54 03/17/19 11:54 Humalog SC 2 unit .MILD SLIDING SCALE PRN Administration Mild Correctional Scale Levothyroxine Sodium 100 mcg 03/17/19 09:00 03/18/19 08:40 Synthroid PO 100 mcg QAM [facility] Administration Lisinopril 20 mg 03/18/19 09:00 03/18/19 08:40 Zestril PO 20 mg DAILY [facility] Administration Metformin HCl 500 mg 03/17/19 09:00 03/18/19 08:40 Glucophage PO 500 mg DAILY [facility] Administration Ondansetron HCl 4 mg 03/15/19 23:54 03/16/19 11:09 Zofran Odt PO 4 mg Q6H PRN Administration Nausea/Vomiting Pantoprazole Sodium 40 mg 03/17/19 09:00 03/18/19 08:41 Protonix PO 40 mg DAILY [facility] Administration Potassium Chloride 20 meq 03/18/19 09:00 03/18/19 08:40 K-Dur PO 20 meq DAILY [facility] Administration Rosuvastatin Calcium 40 mg 03/16/19 21:00 03/17/19 21:40 Crestor PO 40 mg HS [facility] Administration Sodium Chloride 10 ml 03/16/19 09:00 03/18/19 08:46 Flush - Normal Saline IVF Not Given Q12HR [facility] - Exam General Appearance: NAD Eye: anicteric sclera ENT: moist mucosa Heart: negative: RRR, no murmur, no gallops Respiratory: CTAB, no wheezes Gastrointestinal: soft, non-tender, non-distended, normal bowel sounds Psychiatric: normal affect, normal behavior, A&O x 3 Hosp A/P (1) Sepsis Code(s): A41.9 - SEPSIS, UNSPECIFIED ORGANISM Status: Acute (2) Atrial fibrillation with RVR Code(s): I48.91 - UNSPECIFIED ATRIAL FIBRILLATION Status: Acute (3) Diabetes type 2, controlled Code(s): E11.9 - TYPE 2 DIABETES MELLITUS WITHOUT COMPLICATIONS Status: Chronic Qualifiers: Diabetes mellitus termite treater helper insulin use: without termite treater helper use (4) Dyslipidemia Code(s): E78.5 - HYPERLIPIDEMIA, UNSPECIFIED Status: Chronic (5) Hypertension Code(s): I10 - ESSENTIAL (PRIMARY) HYPERTENSION Status: Chronic (6) Hypothyroidism Code(s): E03.9 - HYPOTHYROIDISM, UNSPECIFIED Status: Chronic (7) Moderate aortic regurgitation Code(s): I35.1 - NONRHEUMATIC AORTIC (VALVE) INSUFFICIENCY Status: Chronic (8) Moderate mitral regurgitation Code(s): I34.0 - NONRHEUMATIC MITRAL (VALVE) INSUFFICIENCY Status: Chronic (9) Acute on chronic combined systolic (congestive) and diastolic (congestive) heart failure Code(s): I50.43 - ACUTE ON CHRONIC COMBINED SYSTOLIC AND DIASTOLIC HRT FAIL Status: Acute - Plan continue antibiotics, PT/OT Patient spiked a fever this AM, leukocytosis, tachycardia, productive cough yesterday Initial CXR and blood cultures neg on admit, repeat CXR neg today, blood cultures recheck, start Zosyn and Doxy, concern for pneumonia Afib- remaining high so started on Amiodarone CHF- EF 30-35%, exacerbation by Afib and tachycardia
--- NOTE | 2019-03-18 09:30 | RAD ---
EXAM: Chest 2 views: HISTORY: Cough and fever COMPARISON: 06/22/2016 FINDINGS: There is an enlarged but stable cardiomediastinal silhouette. There is no evidence of consolidation, mass, or pleural effusion. The bones are unremarkable. IMPRESSION: No evidence of acute cardiopulmonary disease
[2019-03-18] MEDS: Piperacillin/Tazobactam 4.5 GM in Sodium Chloride 0.9% 100 ML IVPB SCH ×2 (10:24→16:12)
[2019-03-18] MEDS: Rosuvastatin 20 MG TAB PO SCH (21:14)
[2019-03-18] MEDS: Oseltamivir 75 MG CAP PO SCH (21:15)
[2019-03-19] MEDS: Levothyroxine Sodium 100 MCG TAB PO SCH (08:29)
[2019-03-19] MEDS: Aspirin 325 mg Enteric Coated Tablet PO SCH (08:29)
[2019-03-19] MEDS: Lisinopril 20 MG TAB PO SCH (08:29)
[2019-03-19] MEDS: Carvedilol 25 MG TAB PO SCH ×2 (08:30→20:40)
[2019-03-19] MEDS: metFORMIN 500 MG TAB PO SCH (08:30)
[2019-03-19] MEDS: Potassium Chloride 20 MEQ TAB PO SCH (08:30)
[2019-03-19] MEDS: Oseltamivir 75 MG CAP PO SCH ×2 (08:30→20:40)
--- NOTE | 2019-03-19 08:39 | PDOC.HOSPP ---
- Subjective Encounter Date: 03/19/19 Encounter Time: 12:00 Subjective: Patient feeling much better today. Cough improved. No more fever. - Objective Vital Signs & Weight: Vital Signs (12 hours) Temp Pulse Resp BP Pulse Ox 03/19/19 08:25 97.2 F L 84 20 144/86 H 94 L 03/19/19 04:00 98.6 F 72 20 137/82 96 03/19/19 00:00 98.5 F Weight Admit Weight 156 lb 7 oz Weight 157 lb 3.2 oz I&O: 03/18/19 03/19/19 03/20/19 06:59 06:59 06:59 Intake Total 1046 1412 Balance 1046 1412 Result Diagrams: 03/18/19 04:35 03/18/19 04:35 Additional Labs: Accuchecks 03/19/19 03/18/19 03/18/19 05:59 21:05 16:49 POC Glucose 114 H 136 H 109 03/18/19 10:23 POC Glucose 152 H Hospitalist ROS - Review of Systems Constitutional: denies: fever, chills Respiratory: reports: cough. denies: shortness of breath Cardiovascular: denies: chest pain, palpitations, orthopnea Gastrointestinal: denies: nausea, vomiting, abdominal pain - Medication Medications: Active Medications Generic Name Dose Route Start Last Admin Trade Name Freq PRN Reason Stop Dose Admin Acetaminophen 1,000 mg 03/15/19 23:54 03/18/19 21:17 Tylenol PO 1,000 mg Q6H PRN Administration Mild Pain (1-3) Aspirin 325 mg 03/16/19 09:00 03/19/19 08:29 Ecotrin PO 325 mg DAILY [facility] Administration Carvedilol 25 mg 03/16/19 21:00 03/19/19 08:30 Coreg PO 25 mg BID [facility] Administration Hydralazine HCl 10 mg 03/15/19 23:54 03/16/19 07:25 Apresoline SLOW IVP 10 mg Q4H PRN Administration SBP > 180 and HR < 70 Amiodarone HCl 450 mg/ 259 mls @ 0 mls/hr 03/17/19 05:30 03/18/19 05:43 Miscellaneous Medication 1 IVPB 259 mls each/ Dextrose/Water INF [facility] Administration Protocol As Directed Diltiazem HCl 125 mg/ 125 mls @ 5 mls/hr 03/17/19 13:53 03/17/19 14:40 Miscellaneous Medication 1 IVPB 125 mls each/ Sodium Chloride INF [facility] Administration Protocol Insulin Human Lispro 0 units 03/15/19 23:54 03/17/19 11:54 Humalog SC 2 unit .MILD SLIDING SCALE PRN Administration Mild Correctional Scale Levothyroxine Sodium 100 mcg 03/17/19 09:00 03/19/19 08:29 Synthroid PO 100 mcg QAM [facility] Administration Lisinopril 20 mg 03/18/19 09:00 03/19/19 08:29 Zestril PO 20 mg DAILY [facility] Administration Metformin HCl 500 mg 03/17/19 09:00 03/19/19 08:30 Glucophage PO 500 mg DAILY [facility] Administration Ondansetron HCl 4 mg 03/15/19 23:54 03/16/19 11:09 Zofran Odt PO 4 mg Q6H PRN Administration Nausea/Vomiting Oseltamivir Phosphate 75 mg 03/18/19 21:00 03/19/19 08:30 Tamiflu PO 03/23/19 09:01 75 mg BID [facility] Administration Pantoprazole Sodium 40 mg 03/17/19 09:00 03/19/19 08:30 Protonix PO 40 mg DAILY [facility] Administration Potassium Chloride 20 meq 03/18/19 09:00 03/19/19 08:30 K-Dur PO 20 meq DAILY [facility] Administration Rosuvastatin Calcium 40 mg 03/16/19 21:00 03/18/19 21:14 Crestor PO 40 mg HS [facility] Administration Sodium Chloride 10 ml 03/16/19 09:00 03/19/19 08:29 Flush - Normal Saline IVF 10 ml Q12HR [facility] Administration - Exam General Appearance: NAD, awake alert Eye: anicteric sclera ENT: moist mucosa Heart: RRR, no murmur, no gallops, no rubs Respiratory: CTAB, no wheezes, no rales, no ronchi Gastrointestinal: soft, non-tender, non-distended, normal bowel sounds Psychiatric: normal affect, normal behavior, A&O x 3 Hosp A/P (1) Influenza A Code(s): J10.1 - FLU DUE TO OTH IDENT INFLUENZA VIRUS W OTH RESP MANIFEST Status: Acute (2) Sepsis Code(s): A41.9 - SEPSIS, UNSPECIFIED ORGANISM Status: Resolved (3) Atrial fibrillation with RVR Code(s): I48.91 - UNSPECIFIED ATRIAL FIBRILLATION Status: Acute (4) Diabetes type 2, controlled Code(s): E11.9 - TYPE 2 DIABETES MELLITUS WITHOUT COMPLICATIONS Status: Chronic Qualifiers: Diabetes mellitus shelter insulin use: without superintendent terminal use (5) Dyslipidemia Code(s): E78.5 - HYPERLIPIDEMIA, UNSPECIFIED Status: Chronic (6) Hypertension Code(s): I10 - ESSENTIAL (PRIMARY) HYPERTENSION Status: Chronic (7) Hypothyroidism Code(s): E03.9 - HYPOTHYROIDISM, UNSPECIFIED Status: Chronic (8) Moderate aortic regurgitation Code(s): I35.1 - NONRHEUMATIC AORTIC (VALVE) INSUFFICIENCY Status: Chronic (9) Moderate mitral regurgitation Code(s): I34.0 - NONRHEUMATIC MITRAL (VALVE) INSUFFICIENCY Status: Chronic (10) Acute on chronic combined systolic (congestive) and diastolic (congestive) heart failure Code(s): I50.43 - ACUTE ON CHRONIC COMBINED SYSTOLIC AND DIASTOLIC HRT FAIL Status: Acute - Plan No more fever since yest morning, started on Oseltamivir for Flu A, other abx d/ c'd Afib- remaining high so started on Amiodarone, now in NSR CHF- EF 30-35%, exacerbation by Afib and tachycardia Cardiology following 1/2 blood culture positive with coag neg staph- contaminant
[2019-03-19] MEDS: Rosuvastatin 20 MG TAB PO SCH (20:39)
[2019-03-19] MEDS: Amiodarone 200 MG TAB PO SCH (20:39)
[2019-03-20 05:08] LABS: Anion Gap 15 mmol/L (10-20); BUN (Urea Nitrogen) 13 mg/dL (9.8-20.1); Calc. Creatinine Clearance 52 mL/min (70-130); Calcium 8.7 mg/dL (7.8-10.44); Carbon Dioxide 21 mmol/L (23-31); Chloride 106 mmol/L (98-107); Estimated GFR-MDRD 63; Glucose 93 mg/dL (83-110); Potassium 3.6 mmol/L (3.5-5.1); Sodium 138 mmol/L (136-145)
[2019-03-20 05:15] LABS: Eosinophils 1 % (0-10); Hemoglobin 12.3 g/dL (12.0-16.0); Lymphocytes 34 % (21-51); MDiff Complete? YES; Mean Corpuscular HGB CONC 33.7 g/dL (32.0-36.0); Mean Corpuscular Hemoglobin 33.1 pg (27.0-31.0); Mean Corpuscular Volume 98.3 fL (78.0-98.0); Mean Platelet Volume 7.8 fL (7.4-10.4); Monocytes 10 % (0-10); Neutrophil 53 % (42-75); Platelet Count 246 thou/uL (130-400); Platelet Morphology Comment Appears Adequate; RBC Distribution Width 12.2 % (11.5-14.5); Red Blood Cell (RBC) Count 3.71 mill/uL (4.20-5.40); White Blood Cell (WBC) Count 5.1 thou/uL (4.8-10.8)
[2019-03-20] MEDS: Oseltamivir 75 MG CAP PO SCH ×2 (08:12→20:38)
[2019-03-20] MEDS: Potassium Chloride 20 MEQ TAB PO SCH (08:12)
[2019-03-20] MEDS: Lisinopril 20 MG TAB PO SCH ×2 (08:12→09:21)
[2019-03-20] MEDS: Levothyroxine Sodium 100 MCG TAB PO SCH (08:12)
[2019-03-20] MEDS: Amiodarone 200 MG TAB PO SCH ×2 (08:12→20:38)
[2019-03-20] MEDS: Aspirin 325 mg Enteric Coated Tablet PO SCH (08:12)
[2019-03-20] MEDS: metFORMIN 500 MG TAB PO SCH (08:12)
[2019-03-20] MEDS: Carvedilol 25 MG TAB PO SCH ×2 (08:12→20:38)
[2019-03-20] MEDS ORDERED: Digoxin 0.5 MG/2 ML AMP SLOW IVP SCH (08:15)
--- NOTE | 2019-03-20 08:36 | PDOC.HOSPP ---
- Subjective Encounter Date: 03/20/19 Encounter Time: 11:50 Subjective: Patient without complaint. Went back into Afib this AM. Given a dose of digoxin that slowed it down a bit, but still in afib in low 100s. - Objective Vital Signs & Weight: Vital Signs (12 hours) Temp Pulse Resp BP Pulse Ox 03/20/19 08:12 160 H 03/20/19 07:34 98.1 F 78 17 157/89 H 93 L 03/20/19 07:03 82 20 90 L 03/20/19 03:55 98.4 F 84 20 160/89 H 94 L Weight Admit Weight 156 lb 7 oz Weight 152 lb I&O: 03/19/19 03/20/19 03/21/19 06:59 06:59 06:59 Intake Total 1412 980 Balance 1412 980 Result Diagrams: 03/20/19 04:00 03/20/19 04:00 Additional Labs: Accuchecks 03/19/19 03/19/19 03/19/19 20:27 16:58 10:29 POC Glucose 106 106 123 H Hospitalist ROS - Review of Systems Constitutional: denies: fever Respiratory: denies: cough, shortness of breath Cardiovascular: denies: chest pain, palpitations, orthopnea Gastrointestinal: denies: nausea, vomiting, abdominal pain - Medication Medications: Active Medications Generic Name Dose Route Start Last Admin Trade Name Freq PRN Reason Stop Dose Admin Acetaminophen 1,000 mg 03/15/19 23:54 03/18/19 21:17 Tylenol PO 1,000 mg Q6H PRN Administration Mild Pain (1-3) Albuterol/Ipratropium 3 ml 03/19/19 19:00 03/20/19 07:03 Duoneb NEB 3 ml [id number] [facility] Administration Amiodarone HCl 400 mg 03/19/19 21:00 03/20/19 08:12 Cordarone PO 400 mg BID [facility] Administration Aspirin 325 mg 03/16/19 09:00 03/20/19 08:12 Ecotrin PO 325 mg DAILY [facility] Administration Carvedilol 25 mg 03/16/19 21:00 03/20/19 08:12 Coreg PO 25 mg BID [facility] Administration Digoxin 0.5 mg 03/20/19 08:15 03/20/19 08:12 Lanoxin SLOW IVP 03/20/19 10:00 0.5 mg NOW [facility] Administration Hydralazine HCl 10 mg 03/15/19 23:54 03/16/19 07:25 Apresoline SLOW IVP 10 mg Q4H PRN Administration SBP > 180 and HR < 70 Insulin Human Lispro 0 units 03/15/19 23:54 03/17/19 11:54 Humalog SC 2 unit .MILD SLIDING SCALE PRN Administration Mild Correctional Scale Levothyroxine Sodium 100 mcg 03/17/19 09:00 03/20/19 08:12 Synthroid PO 100 mcg QAM [facility] Administration Lisinopril 20 mg 03/18/19 09:00 03/20/19 08:12 Zestril PO 20 mg DAILY [facility] Administration Metformin HCl 500 mg 03/17/19 09:00 03/20/19 08:12 Glucophage PO 500 mg DAILY [facility] Administration Ondansetron HCl 4 mg 03/15/19 23:54 03/16/19 11:09 Zofran Odt PO 4 mg Q6H PRN Administration Nausea/Vomiting Oseltamivir Phosphate 75 mg 03/18/19 21:00 03/20/19 08:12 Tamiflu PO 03/23/19 09:01 75 mg BID [facility] Administration Pantoprazole Sodium 40 mg 03/17/19 09:00 03/20/19 08:12 Protonix PO 40 mg DAILY [facility] Administration Potassium Chloride 20 meq 03/18/19 09:00 03/20/19 08:12 K-Dur PO 20 meq DAILY [facility] Administration Rosuvastatin Calcium 40 mg 03/16/19 21:00 03/19/19 20:39 Crestor PO 40 mg HS [facility] Administration Sodium Chloride 10 ml 03/16/19 09:00 03/20/19 08:12 Flush - Normal Saline IVF 10 ml Q12HR [facility] Administration - Exam General Appearance: NAD Eye: anicteric sclera ENT: moist mucosa Heart: no murmur, no gallops, no rubs, irregular Respiratory: CTAB, no wheezes, no rales, no ronchi Gastrointestinal: soft, non-tender, non-distended, normal bowel sounds Extremities: no edema Psychiatric: normal affect, normal behavior, A&O x 3 Hosp A/P (1) Influenza A Code(s): J10.1 - FLU DUE TO OTH IDENT INFLUENZA VIRUS W OTH RESP MANIFEST Status: Acute (2) Sepsis Code(s): A41.9 - SEPSIS, UNSPECIFIED ORGANISM Status: Resolved (3) Atrial fibrillation with RVR Code(s): I48.91 - UNSPECIFIED ATRIAL FIBRILLATION Status: Acute (4) Diabetes type 2, controlled Code(s): E11.9 - TYPE 2 DIABETES MELLITUS WITHOUT COMPLICATIONS Status: Chronic Qualifiers: Diabetes mellitus alf insulin use: without alf use (5) Dyslipidemia Code(s): E78.5 - HYPERLIPIDEMIA, UNSPECIFIED Status: Chronic (6) Hypertension Code(s): I10 - ESSENTIAL (PRIMARY) HYPERTENSION Status: Chronic (7) Hypothyroidism Code(s): E03.9 - HYPOTHYROIDISM, UNSPECIFIED Status: Chronic (8) Moderate aortic regurgitation Code(s): I35.1 - NONRHEUMATIC AORTIC (VALVE) INSUFFICIENCY Status: Chronic (9) Moderate mitral regurgitation Code(s): I34.0 - NONRHEUMATIC MITRAL (VALVE) INSUFFICIENCY Status: Chronic (10) Acute on chronic combined systolic (congestive) and diastolic (congestive) heart failure Code(s): I50.43 - ACUTE ON CHRONIC COMBINED SYSTOLIC AND DIASTOLIC HRT FAIL Status: Acute - Plan No more fever, started on Oseltamivir for Flu A, other abx d/c'd Afib- remaining high so started on Amiodarone, converted but when changed to po back in Afib with RVR this AM CHF- EF 30-35%, exacerbation by Afib and tachycardia Dr. Greer following 1/2 blood culture positive with coag neg staph- contaminant BP a bit high, increase Lisinopril back up to home dose DVT prophylaxis- SCDs
[2019-03-20] MEDS ORDERED: Lisinopril 20 MG TAB PO SCH (09:45)
[2019-03-20] MEDS ORDERED: Diltiazem 125 MG in Sodium Chloride 0.9% 100 ML IVPB SCH ×2 (12:45→14:53)
--- NOTE | 2019-03-20 14:54 | PDOC.CPN ---
- Subjective Date: 03/20/19 Time: 15:03 Interval history: The pt seen and examined. No overnight events. No cardiac complaints. - Objective Allergies/Adverse Reactions: Allergies Allergy/AdvReac Type Severity Reaction Status Date / Time No Known Allergies Allergy Verified 03/16/19 00:17 Visit Medications: Current Medications Acetaminophen (Tylenol) 1,000 mg PO Q6H PRN PRN Reason: Mild Pain (1-3) Last Admin: 03/18/19 21:17 Dose: 1,000 mg Albuterol/Ipratropium (Duoneb) 3 ml NEB [id number] [facility] Last Admin: 03/20/19 12:41 Dose: 3 ml Amiodarone HCl (Cordarone) 400 mg PO BID [facility] Last Admin: 03/20/19 08:12 Dose: 400 mg Aspirin (Ecotrin) 325 mg PO DAILY [facility] Last Admin: 03/20/19 08:12 Dose: 325 mg Carvedilol (Coreg) 25 mg PO BID [facility] Last Admin: 03/20/19 08:12 Dose: 25 mg Dextrose/Water (Dextrose 50%) 25 gm SLOW IVP PRN PRN PRN Reason: Hypoglycemia Docusate Sodium (Colace) 100 mg PO BIDPRN PRN PRN Reason: Constipation Glucagon (Glucagon) 1 mg IM PRN PRN PRN Reason: Hypoglycemia Hydralazine HCl (Apresoline) 10 mg SLOW IVP Q4H PRN PRN Reason: SBP > 180 and HR < 70 Last Admin: 03/16/19 07:25 Dose: 10 mg Dextrose/Water (D5w) 1,000 mls @ 0 mls/hr IV .Q0M PRN PRN Reason: Hypoglycemia Diltiazem HCl 125 mg/ Sodium (Chloride) 125 mls @ 7.5 mls/hr IVPB INF [facility]; Protocol Insulin Human Lispro (Humalog) 0 units SC .MILD SLIDING SCALE PRN PRN Reason: Mild Correctional Scale Last Admin: 03/17/19 11:54 Dose: 2 unit Insulin Human Lispro (Humalog) 0 units SC .BEDTIME SLIDING SC PRN PRN Reason: Bedtime Correctional Scale Levothyroxine Sodium (Synthroid) 100 mcg PO QAM [facility] Last Admin: 03/20/19 08:12 Dose: 100 mcg Lisinopril (Zestril) 40 mg PO DAILY [facility] Last Admin: 03/20/19 09:21 Dose: Not Given Loratadine (Claritin) 10 mg PO DAILYPRN PRN PRN Reason: Allergies Metformin HCl (Glucophage) 500 mg PO DAILY [facility] Last Admin: 03/20/19 08:12 Dose: 500 mg Ondansetron HCl (Zofran Odt) 4 mg PO Q6H PRN PRN Reason: Nausea/Vomiting Last Admin: 03/16/19 11:09 Dose: 4 mg Ondansetron HCl (Zofran) 4 mg IVP Q6H PRN PRN Reason: Nausea/Vomiting Oseltamivir Phosphate (Tamiflu) 75 mg PO BID [facility] Stop: 03/23/19 09:01 Last Admin: 03/20/19 08:12 Dose: 75 mg Pantoprazole Sodium (Protonix) 40 mg PO DAILY [facility] Last Admin: 03/20/19 08:12 Dose: 40 mg Polyethylene Glycol (Miralax) 17 gm PO DAILYPRN PRN PRN Reason: Constipation Potassium Chloride (K-Dur) 20 meq PO DAILY [facility] Last Admin: 03/20/19 08:12 Dose: 20 meq Rosuvastatin Calcium (Crestor) 40 mg PO HS [facility] Last Admin: 03/19/19 20:39 Dose: 40 mg Sodium Chloride (Flush - Normal Saline) 10 ml IVF Q12HR [facility] Last Admin: 03/20/19 08:12 Dose: 10 ml Sodium Chloride (Flush - Normal Saline) 10 ml IVF PRN PRN PRN Reason: Saline Flush Vital Signs & Weight: Vital Signs Temp Pulse Resp BP Pulse Ox 03/20/19 12:41 110 H 20 93 L 03/20/19 12:17 130/72 03/20/19 11:24 98.6 F 116 H 20 113/77 92 L 03/20/19 08:12 160 H 03/20/19 07:34 98.1 F 78 17 157/89 H 93 L 03/20/19 07:03 82 20 90 L 03/20/19 03:55 98.4 F 84 20 160/89 H 94 L Admit Weight 156 lb 7 oz Weight 152 lb - Physical Exam General: alert & oriented x3 HEENT: mucus membranes moist Neck: supple neck Cardiac: irregularly regular Lungs: decreased breath sounds - Labs Result Diagrams: 03/20/19 04:00 03/20/19 04:00 - Telemetry Supraventricular conduction: atrial fibrillation - Assessment/Plan Assessment/Plan: 1. Afib with RVR - Cardizem drip was resumed for HR > 130s today; On Amiodarone 400mg BID from today and on Coreg 25mg BID and ASA 325mg qd; not on OAC due to hx of GI bleed by Xarelto and iron deficiency anemia 2. Acute on Chronic Systolic and diastolic HF with EF 30-35% (EF 50-55% in 2018) - stable with RA; 3. HTN - stable 4. MR and AI 5. Iron deficiency Anemia - 6. DM type 2 - 7. Hypothyroidism 8. Current Smoker - recommend smoking cessation 9. Influenza A MAR reviewed * Dr. Greer's pt * Echo on 03/16/2019 with EF 30-35%, afib, mod-severe dilated LA, trace MR, mod TR and mod elevated PAP. Pt. seen and eval. by me. I agree with the A/P by the [employer]. The pt. was in sinus but has converted back to afib. Resume IV diltiazem. Chest clear. irreg/irreg. gjmays
[2019-03-20] MEDS: Rosuvastatin 20 MG TAB PO SCH (20:38)
--- NOTE | 2019-03-21 08:50 | PDOC.HOSPP ---
- Subjective Encounter Date: 03/21/19 Encounter Time: 11:50 Subjective: Patient without further cough or fever. Would really like to get home to make it to sister's this weekend. - Objective Vital Signs & Weight: Vital Signs (12 hours) Temp Pulse Resp BP Pulse Ox 03/21/19 07:22 80 18 95 03/21/19 04:05 98.9 F 97 18 126/92 H 92 L 03/21/19 00:36 97 20 92 L 03/21/19 00:20 97 110/77 Weight Admit Weight 156 lb 7 oz Weight 147 lb I&O: 03/20/19 03/21/19 03/22/19 06:59 06:59 06:59 Intake Total 980 1200 Output Total 3 Balance 980 1197 Result Diagrams: 03/20/19 04:00 03/20/19 04:00 Additional Labs: Accuchecks 03/21/19 03/20/19 03/20/19 05:28 20:53 05:35 POC Glucose 91 116 H 96 Hospitalist ROS - Review of Systems Constitutional: denies: fever, chills Respiratory: denies: cough, shortness of breath Cardiovascular: denies: chest pain, palpitations, orthopnea Gastrointestinal: denies: nausea, vomiting, abdominal pain Neurological: denies: weakness, confusion - Medication Medications: Active Medications Generic Name Dose Route Start Last Admin Trade Name Freq PRN Reason Stop Dose Admin Acetaminophen 1,000 mg 03/15/19 23:54 03/18/19 21:17 Tylenol PO 1,000 mg Q6H PRN Administration Mild Pain (1-3) Albuterol/Ipratropium 3 ml 03/19/19 19:00 03/21/19 07:22 Duoneb NEB 3 ml [id number] HOLLEY Administration Amiodarone HCl 400 mg 03/19/19 21:00 03/20/19 20:38 Cordarone PO 400 mg BID HOLLEY Administration Aspirin 325 mg 03/16/19 09:00 03/20/19 08:12 Ecotrin PO 325 mg DAILY HOLLEY Administration Carvedilol 25 mg 03/16/19 21:00 03/20/19 20:38 Coreg PO 25 mg BID HOLLEY Administration Hydralazine HCl 10 mg 03/15/19 23:54 03/16/19 07:25 Apresoline SLOW IVP 10 mg Q4H PRN Administration SBP > 180 and HR < 70 Insulin Human Lispro 0 units 03/15/19 23:54 03/17/19 11:54 Humalog SC 2 unit .MILD SLIDING SCALE PRN Administration Mild Correctional Scale Levothyroxine Sodium 100 mcg 03/17/19 09:00 03/20/19 08:12 Synthroid PO 100 mcg QAM HOLLEY Administration Lisinopril 40 mg 03/20/19 09:00 03/20/19 09:21 Zestril PO Not Given DAILY HOLLEY Metformin HCl 500 mg 03/17/19 09:00 03/20/19 08:12 Glucophage PO 500 mg DAILY HOLLEY Administration Ondansetron HCl 4 mg 03/15/19 23:54 03/16/19 11:09 Zofran Odt PO 4 mg Q6H PRN Administration Nausea/Vomiting Oseltamivir Phosphate 75 mg 03/18/19 21:00 03/20/19 20:38 Tamiflu PO 03/23/19 09:01 75 mg BID HOLLEY Administration Pantoprazole Sodium 40 mg 03/17/19 09:00 03/20/19 08:12 Protonix PO 40 mg DAILY HOLLEY Administration Potassium Chloride 20 meq 03/18/19 09:00 03/20/19 08:12 K-Dur PO 20 meq DAILY HOLLEY Administration Rosuvastatin Calcium 40 mg 03/16/19 21:00 03/20/19 20:38 Crestor PO 40 mg HS HOLLEY Administration Sodium Chloride 10 ml 03/16/19 09:00 03/20/19 20:38 Flush - Normal Saline IVF Not Given Q12HR HOLLEY - Exam General Appearance: NAD, awake alert Eye: anicteric sclera ENT: moist mucosa Heart: no murmur, no gallops, no rubs, irregular Respiratory: CTAB, no wheezes, no rales, no ronchi Gastrointestinal: soft, non-tender, non-distended, normal bowel sounds Psychiatric: normal affect, normal behavior, A&O x 3 Hosp A/P (1) Influenza A Code(s): J10.1 - FLU DUE TO OTH IDENT INFLUENZA VIRUS W OTH RESP MANIFEST Status: Acute (2) Sepsis Code(s): A41.9 - SEPSIS, UNSPECIFIED ORGANISM Status: Resolved (3) Atrial fibrillation with RVR Code(s): I48.91 - UNSPECIFIED ATRIAL FIBRILLATION Status: Acute (4) Diabetes type 2, controlled Code(s): E11.9 - TYPE 2 DIABETES MELLITUS WITHOUT COMPLICATIONS Status: Chronic Qualifiers: Diabetes mellitus 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 use: without local company intermodal truck driver use (5) Dyslipidemia Code(s): E78.5 - HYPERLIPIDEMIA, UNSPECIFIED Status: Chronic (6) Hypertension Code(s): I10 - ESSENTIAL (PRIMARY) HYPERTENSION Status: Chronic (7) Hypothyroidism Code(s): E03.9 - HYPOTHYROIDISM, UNSPECIFIED Status: Chronic (8) Moderate aortic regurgitation Code(s): I35.1 - NONRHEUMATIC AORTIC (VALVE) INSUFFICIENCY Status: Chronic (9) Moderate mitral regurgitation Code(s): I34.0 - NONRHEUMATIC MITRAL (VALVE) INSUFFICIENCY Status: Chronic (10) Acute on chronic combined systolic (congestive) and diastolic (congestive) heart failure Code(s): I50.43 - ACUTE ON CHRONIC COMBINED SYSTOLIC AND DIASTOLIC HRT FAIL Status: Acute - Plan No more fever, started on Oseltamivir for Flu A, other abx d/c'd Afib- controlled again this AM with diltiazem drip CHF- EF 30-35%, exacerbation by Afib and tachycardia Dr. Greer following 1/2 blood culture positive with coag neg staph- contaminant BP controlled Home when converted to oral afib medications and rate remains controlled Will need LifeVest per Dr. Greer most recent note. Patient really wants to get home for sister's this weekend DVT prophylaxis- SCDs
[2019-03-21] MEDS: Amiodarone 200 MG TAB PO SCH ×2 (09:08→19:50)
[2019-03-21] MEDS: Aspirin 325 mg Enteric Coated Tablet PO SCH (09:08)
[2019-03-21] MEDS: Levothyroxine Sodium 100 MCG TAB PO SCH (09:09)
[2019-03-21] MEDS: Oseltamivir 75 MG CAP PO SCH ×2 (09:09→19:51)
[2019-03-21] MEDS: Lisinopril 20 MG TAB PO SCH (09:09)
[2019-03-21] MEDS: Carvedilol 25 MG TAB PO SCH ×2 (09:09→19:51)
[2019-03-21] MEDS: Potassium Chloride 20 MEQ TAB PO SCH (09:09)
[2019-03-21] MEDS: metFORMIN 500 MG TAB PO SCH (09:09)
[2019-03-21 14:06] VITALS: BMI 26.9
[2019-03-21] MEDS ORDERED: Diltiazem 125 MG in Sodium Chloride 0.9% 100 ML IVPB SCH (19:45)
[2019-03-21] MEDS: Rosuvastatin 20 MG TAB PO SCH (19:50)
[2019-03-22 08:15] LABS: Hemoglobin 11.8 g/dL (12.0-16.0); Mean Corpuscular HGB CONC 34.7 g/dL (32.0-36.0); Mean Corpuscular Hemoglobin 33.6 pg (27.0-31.0); Mean Corpuscular Volume 96.7 fL (78.0-98.0); Mean Platelet Volume 7.5 fL (7.4-10.4); Platelet Count 264 thou/uL (130-400); RBC Distribution Width 12.2 % (11.5-14.5)
[2019-03-22 08:19] LABS: Anion Gap 14 mmol/L (10-20); BUN (Urea Nitrogen) 15 mg/dL (9.8-20.1); Calc. Creatinine Clearance 42 mL/min (70-130); Calcium 8.8 mg/dL (7.8-10.44); Carbon Dioxide 21 mmol/L (23-31); Chloride 107 mmol/L (98-107); Estimated GFR-MDRD 49; Glucose 84 mg/dL (83-110); Sodium 138 mmol/L (136-145)
[2019-03-22] MEDS: Lisinopril 20 MG TAB PO SCH (08:45)
[2019-03-22] MEDS: Carvedilol 25 MG TAB PO SCH (08:46)
[2019-03-22] MEDS: Amiodarone 200 MG TAB PO SCH (08:46)
[2019-03-22] MEDS: metFORMIN 500 MG TAB PO SCH (08:47)
[2019-03-22] MEDS: Potassium Chloride 20 MEQ TAB PO SCH (08:47)
[2019-03-22] MEDS: Aspirin 325 mg Enteric Coated Tablet PO SCH (08:47)
[2019-03-22] MEDS: Levothyroxine Sodium 100 MCG TAB PO SCH (08:47)
[2019-03-22] MEDS: Oseltamivir 75 MG CAP PO SCH (08:47)
[2019-03-22 08:57] LABS: Band 3 % (5-11); Eosinophils 1 % (0-10); Lymphocytes 29 % (21-51); MDiff Complete? YES; Monocytes 11 % (0-10); Neutrophil 56 % (42-75); RBC Morphology Normal
--- NOTE | 2019-03-22 10:27 | PDOC.HOSPP ---
- Subjective Encounter Date: 03/22/19 (f/u a fib) Encounter Time: 10:25 Subjective: Pt denies any complaints today - denies n/v/abd pain/cp/dyspnea. - Objective Vital Signs & Weight: Vital Signs (12 hours) Temp Pulse Resp BP Pulse Ox 03/22/19 08:42 98.8 F 66 18 155/76 H 96 03/22/19 04:00 98.1 F 64 18 152/76 H 96 03/21/19 23:49 56 L 121/67 03/21/19 23:17 90 16 96 Weight Admit Weight 156 lb 7 oz Weight 152 lb 12.8 oz I&O: 03/21/19 03/22/19 03/23/19 06:59 06:59 06:59 Intake Total 1200 1320 Output Total 3 Balance 1197 1320 Result Diagrams: 03/22/19 07:24 03/22/19 07:24 Additional Labs: Accuchecks 03/22/19 03/21/19 03/21/19 05:34 20:44 16:17 POC Glucose 98 127 H 116 H 03/21/19 10:49 POC Glucose 101 EKG Reviewed by me: Yes (tele - sius 60-70's) Hospitalist ROS - Medication Medications: Active Medications Generic Name Dose Route Start Last Admin Trade Name Freq PRN Reason Stop Dose Admin Acetaminophen 1,000 mg 03/15/19 23:54 03/18/19 21:17 Tylenol PO 1,000 mg Q6H PRN Administration Mild Pain (1-3) Albuterol/Ipratropium 3 ml 03/19/19 19:00 03/22/19 08:11 Duoneb NEB Not Given [id number] HOLLEY Amiodarone HCl 400 mg 03/19/19 21:00 03/22/19 08:46 Cordarone PO 400 mg BID HOLLEY Administration Aspirin 325 mg 03/16/19 09:00 03/22/19 08:47 Ecotrin PO 325 mg DAILY HOLLEY Administration Carvedilol 25 mg 03/16/19 21:00 03/22/19 08:46 Coreg PO 25 mg BID HOLLEY Administration Hydralazine HCl 10 mg 03/15/19 23:54 03/16/19 07:25 Apresoline SLOW IVP 10 mg Q4H PRN Administration SBP > 180 and HR < 70 Insulin Human Lispro 0 units 03/15/19 23:54 03/17/19 11:54 Humalog SC 2 unit .MILD SLIDING SCALE PRN Administration Mild Correctional Scale Levothyroxine Sodium 100 mcg 03/17/19 09:00 03/22/19 08:47 Synthroid PO 100 mcg QAM HOLLEY Administration Lisinopril 40 mg 03/20/19 09:00 03/22/19 08:45 Zestril PO 40 mg DAILY HOLLEY Administration Metformin HCl 500 mg 03/17/19 09:00 03/22/19 08:47 Glucophage PO 500 mg DAILY HOLLEY Administration Ondansetron HCl 4 mg 03/15/19 23:54 03/16/19 11:09 Zofran Odt PO 4 mg Q6H PRN Administration Nausea/Vomiting Oseltamivir Phosphate 75 mg 03/18/19 21:00 03/22/19 08:47 Tamiflu PO 03/23/19 09:01 75 mg BID HOLLEY Administration Pantoprazole Sodium 40 mg 03/17/19 09:00 03/22/19 08:47 Protonix PO 40 mg DAILY HOLLEY Administration Potassium Chloride 20 meq 03/18/19 09:00 03/22/19 08:47 K-Dur PO 20 meq DAILY HOLLEY Administration Rosuvastatin Calcium 40 mg 03/16/19 21:00 03/21/19 19:50 Crestor PO 40 mg HS HOLLEY Administration Sodium Chloride 10 ml 03/16/19 09:00 03/22/19 08:47 Flush - Normal Saline IVF 10 ml Q12HR HOLLEY Administration - Exam General Appearance: NAD Heart: RRR, no murmur Respiratory: CTAB, no wheezes, no rales, no ronchi Gastrointestinal: soft, non-tender, non-distended, normal bowel sounds Extremities: no cyanosis, no clubbing, no edema Psychiatric: normal affect Hosp A/P (1) Atrial fibrillation with RVR Code(s): I48.91 - UNSPECIFIED ATRIAL FIBRILLATION Status: Acute (2) Nausea Code(s): R11.0 - NAUSEA Status: Resolved (3) Diabetes type 2, controlled Code(s): E11.9 - TYPE 2 DIABETES MELLITUS WITHOUT COMPLICATIONS Status: Chronic Qualifiers: Diabetes mellitus 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 use: without supervisor rose grading use (4) Dyslipidemia Code(s): E78.5 - HYPERLIPIDEMIA, UNSPECIFIED Status: Chronic (5) Hypertension Code(s): I10 - ESSENTIAL (PRIMARY) HYPERTENSION Status: Chronic (6) Hypothyroidism Code(s): E03.9 - HYPOTHYROIDISM, UNSPECIFIED Status: Chronic (7) Hypokalemia Code(s): E87.6 - HYPOKALEMIA Status: Resolved - Plan appreciate consultants - - sinus rhythm, await further guidance from Cardiology including clearance for d /c to home continue other meds as ordered dvt prophy - on scd's, pt has not been a candidate for full anti-coag due to hx of GI bleed, continue daily aspirin gi prophy - on ppi at home, continue here code status full reviewed plan of care with patient, no questions or further needs at end of eval Note - pt cleared by Cardiology and discharged to home. See discharge summary for complete details.
[2019-03-22 11:54] VITALS: BP 155/87; TEMP 98.6
--- NOTE | 2019-03-22 14:07 | DIS ---
DATE OF ADMISSION: 03/15/2019 DATE OF DISCHARGE: 03/22/2019 CONSULTANTS: Cardiology, Dr. Yee and Dr. Greer. MEDICATIONS: Reconciled at discharge. NEW MEDICATIONS: 1. Amiodarone 200 mg two tablets p.o. b.i.d. x2 weeks, then 1 tablet p.o. b.i.d. x2 weeks, then one tablet daily. Prescription provided for 120 tablets, refills from Dr. Greer. 2. Tamiflu 75 mg one p.o. b.i.d. x2 doses only. 3. Full dose aspirin 325 mg once daily. MEDICATIONS DISCONTINUED: 1. Low-dose aspirin. 2. Diltiazem. This was discontinued as the patient is in sinus rhythm now. 3. Potassium chloride. 4. Clonidine. 5. Metformin. MEDICATIONS TO RESUME: 1. Carvedilol 25 mg p.o. b.i.d. 2. Levothyroxine 100 mcg daily. 3. Lisinopril 40 mg daily. 4. Omeprazole 40 mg daily. 5. Rosuvastatin 40 mg daily. FOLLOWUP: Followup is needed with Dr. Greer in 3-4 weeks in his office. Please call for an appointment. Follow up with the PCP within a week to monitor kidney function and determine if it is safer to resume metformin. FINAL DIAGNOSES: 1. Atrial fibrillation with rapid ventricular response, resolved. 2. Influenza A. 3. Acute on chronic combined systolic and diastolic heart failure. SECONDARY DIAGNOSES: 1. Diabetes mellitus type 2. 2. Dyslipidemia. 3. Hypertension. 4. Hypothyroidism. 5. Aortic regurgitation. 6. History of gastrointestinal bleed on Xarelto. HISTORY OF PRESENT ILLNESS: Ms. Pressley is a 73-year-old female with the above medical problems, who presented to the emergency room complaining of shortness of breath, fatigue, palpitations and was found to be in atrial fibrillation with a heart rate in the 140s. She received IV diltiazem and hospitalist called for admission. HOSPITAL COURSE: The patient has been managed with IV diltiazem initially, with IV amiodarone added as her rate was not controlled. She did convert over to a sinus rhythm briefly and then returned back to atrial fibrillation with rapid ventricular response and was restarted on the diltiazem drip. She has since then maintained a sinus rhythm and is being managed with carvedilol, amiodarone. Her blood pressures are managed with lisinopril only and she is overall doing well. She has been cleared for discharge to home by Dr. Greer to follow up in his clinic in 3-4 weeks. The patient had some cough while here, and was flu tested and found to be positive. She was started on Tamiflu and has received eight doses and will continue for two more doses in the outpatient setting. She denies any coughing, fevers or chills , is overall doing well. For heart failure, this has been managed with managing the rate associated with atrial fibrillation. The patient is without complaint, breathing well on room air. The patient's metformin has been held as her creatinine has been around 1.2-1.3 while here. Her blood sugars have been well controlled. She will need to follow up with her primary care for monitoring of both her kidneys and to determine when or if to resume the metformin. PHYSICAL EXAMINATION: For today, please see the note on the chart. BATEMAN FINDINGS AND TEST RESULTS: CBC; 6.0, 11.8, 33.8, 264. Chemistry: 138, 4.0, 107, 21, 15, 1.29, 84. Blood sugars over the past 24 hours ranged from 84-127. TSH 1.52, free T4 1.26. LFTs on admission, T bilirubin 0.6, AST 37, ALT 38, alkaline phosphatase 79, total protein 7, albumin 4.4. Urinalysis on admission, present protein, otherwise normal. Echocardiogram on 03/16, shows an EF of 30%-35%, left atrium moderately to severely dilated, moderate TR and moderately elevated pulmonary artery pressure. Chest x-ray on 03/15, shows no focal consolidation or alveolar edema. Chest x-ray on 03/18, no evidence of an acute cardiopulmonary disease. 03/15 - influenza negative, blood cultures neg x 2 sets 03/15 - urine culture with mixed skin shanita 03/18 - Flu positive 03/18 - blood culture x 1 set with coag neg staph, and 1 set negative DIET: Heart healthy, carbohydrate consistent and fluid restricted to 1500 mL per day. The patient has been fitted with a life vest and given instructions on how to use it. ACTIVITY: As tolerated. Reviewed with patient this hospitalization, the importance of followup, seek care precautions. No questions or further needs at the time of discharge. DISCHARGE DISPOSITION: Home CODE STATUS: Full Total time coordinating discharge is 40 minutes. Job ID: [id number] MTDD
--- NOTE | 2019-03-25 05:00 | PQF ---
SAP Ornament Setter Crystal Reports Winform ViewerJAYJOSEPH MERCADO DENA [id number] [id number] CLINICAL DOCUMENTATION CLARIFICATION FORM: POST DISCHARGE Addendum to original discharge summary date: ____ Late entry note date: __ DATE: 03/25/2019 ATTN:BRYON JOHNSON Please exercise your independent, professional judgment in responding to the clarification form. Clinical indicators are provided on the bottom of this form for your review Please check appropriate box(s) to clarify if the following diagnosis has been ruled in or ruled out: SEPSIS (CDI/Coding list diagnosis here) [ ] Ruled in diagnosis [ ] Continue to treat [ ] Resolved [XX ] Ruled out diagnosis [ ] Cannot rule out diagnosis [ ] Other diagnosis [ ] Unable to determine In addition, please specify: Present on Admission (POA): [ ] Yes [ ] No [ ] Unable to determine For continuity of documentation, please document condition throughout progress notes and discharge summary. Thank You. CLINICAL INDICATORS - SIGNS / SYMPTOMS / LABS Pulse rate 136 on 03/15 - Documented in ED report pg#2 Respiration rate 24 on 03/15 - Documented in ED report pg#2 Elevated WBC 14.1 on 03/17 - Documented in Laboratory Elevated Lactic Acid 2.3 on 03/15 - Documented in Laboratory Sepsis - Documented in Hospital PNs on 03/18 by Bryan Montoya MD RISK FACTORS Acute on chronic systolic CHF - Documented in Hospital PNs on 03/18 by Bryan Montoya MD Influenza A - Documented in Hospital PNs on 03/19 by Bryan Montoya MD TREATMENTS Azithromycin IVPB - Medication report SAP Ornament Setter Crystal Reports Winform Viewer (This form is maintained as a part of the permanent medical record) 2014 [employer]. All Rights Reserved Ar [email or web address] [not provided] LUTHER
== END 2019-03-22 15:25 | disposition home or self-care (01) | DRG 308 ==
LOC: ERS 18:24 → 2NO 23:46
PROVIDERS: ADMIT Family Medicine; ATTEND Family Medicine
DX: I48.0 Paroxysmal atrial fibrillation (principal); I50.43 Acute on chronic combined systolic (congestive) and diastolic (congestive) heart failure; A41.9 Sepsis, unspecified organism; E11.9 Type 2 diabetes mellitus without complications; E03.9 Hypothyroidism, unspecified; M19.91 Primary osteoarthritis, unspecified site; Z90.710 Acquired absence of both cervix and uterus; I42.9 Cardiomyopathy, unspecified; Z79.84 Long term (current) use of oral hypoglycemic drugs; Z79.82 Long term (current) use of aspirin; Z79.899 Other long term (current) drug therapy; F17.210 Nicotine dependence, cigarettes, uncomplicated; E87.6 Hypokalemia; I35.1 Nonrheumatic aortic (valve) insufficiency; J10.1 Influenza due to other identified influenza virus with other respiratory manifestations; I34.0 Nonrheumatic mitral (valve) insufficiency; E78.5 Hyperlipidemia, unspecified; D50.9 Iron deficiency anemia, unspecified
CPT/HCPCS: 36415; 36416; 71045; 71046; 80048; 80053; 81003; 81015; 82550; 83605; 83690; 83735; 84439; 84443; 85007; 85025; 85027; 87040; 87086; 87149; 87804; 93005; 93306; 94640; 96361; 96365; 96366; 96376; J0282; J0360; J1160; J2543; J3490; J7070; J7620; Q0162

== ENCOUNTER 2019-05-13 01:41 | Inpatient (IN) | payer MEDICARE, MEDICAID ==
[2019-05-13] MEDS ORDERED: Pantoprazole 40 MG VIAL ONE ×2 (02:14→15:40)
[2019-05-13 02:36] LABS: #Basophils 0.1 thou/uL (0.0-0.2); #Eosinphils 0.1 thou/uL (0.0-0.7); #Lymphocytes 2.7 thou/uL (1.20-3.40); #Monocytes 0.4 thou/uL (0.11-0.59); #Neutrophils 2.2 thou/uL (1.40-6.50); %Basophils 2.4 % (0.0-1.0); %Eosinophils 1.9 % (0.0-10.0); %Lymphocytes 49.5 % (21.0-51.0); %Monocytes 7.5 % (0.0-10.0); %Neutrophils 38.7 % (42.0-75.0); Hemoglobin 12.9 g/dL (12.0-16.0); Mean Corpuscular HGB CONC 33.4 g/dL (32.0-36.0); Mean Corpuscular Hemoglobin 32.7 pg (27.0-31.0); Mean Corpuscular Volume 97.9 fL (78.0-98.0); Mean Platelet Volume 7.6 fL (7.4-10.4); Platelet Count 254 thou/uL (130-400); RBC Distribution Width 14.3 % (11.5-14.5); Red Blood Cell (RBC) Count 3.96 mill/uL (4.20-5.40); White Blood Cell (WBC) Count 5.5 thou/uL (4.8-10.8)
[2019-05-13 03:11] LABS: ALT (SGPT) 16 U/L (8-55); AST (SGOT) 13 U/L (5-34); Albumin 4.3 g/dL (3.4-4.8); Alkaline Phosphatase 61 U/L (40-110); Anion Gap 13 mmol/L (10-20); BUN (Urea Nitrogen) 18 mg/dL (9.8-20.1); Bilirubin, Total 0.3 mg/dL (0.2-1.2); Calc. Creatinine Clearance 0 mL/min (70-130); Calcium 9.5 mg/dL (7.8-10.44); Carbon Dioxide 26 mmol/L (23-31); Chloride 107 mmol/L (98-107); Estimated GFR-MDRD 40; Globulin 2.6 g/dL (2.4-3.5); Glucose 166 mg/dL (83-110); Potassium 3.8 mmol/L (3.5-5.1); Protein, Total 6.9 g/dL (6.0-8.3); Sodium 142 mmol/L (136-145)
[2019-05-13] MEDS ORDERED: Acetaminophen 325 MG TAB PO PRN (08:23)
[2019-05-13] MEDS ORDERED: traMADol HCl 50 MG TAB PO PRN (08:25)
[2019-05-13] MEDS ORDERED: Dextrose 5% in Water 1,000 ML IV PRN (08:35)
[2019-05-13] MEDS ORDERED: Dextrose 50% Abboject 50 ML SYRINGE SLOW IVP PRN (08:35)
[2019-05-13 08:51] LABS: #Basophils 0.1 thou/uL (0.0-0.2); #Lymphocytes 1.7 thou/uL (1.20-3.40); #Monocytes 0.4 thou/uL (0.11-0.59); #Neutrophils 4.6 thou/uL (1.40-6.50); %Basophils 0.8 % (0.0-1.0); %Eosinophils 0.5 % (0.0-10.0); %Lymphocytes 25.3 % (21.0-51.0); %Monocytes 5.2 % (0.0-10.0); %Neutrophils 68.2 % (42.0-75.0); Hemoglobin 11.2 g/dL (12.0-16.0); Mean Corpuscular HGB CONC 33.2 g/dL (32.0-36.0); Mean Corpuscular Hemoglobin 32.6 pg (27.0-31.0); Mean Corpuscular Volume 98.2 fL (78.0-98.0); Mean Platelet Volume 7.4 fL (7.4-10.4); Platelet Count 233 thou/uL (130-400); RBC Distribution Width 14.4 % (11.5-14.5); Red Blood Cell (RBC) Count 3.43 mill/uL (4.20-5.40); White Blood Cell (WBC) Count 6.8 thou/uL (4.8-10.8)
[2019-05-13 09:17] LABS: Anion Gap 12 mmol/L (10-20); BUN (Urea Nitrogen) 20 mg/dL (9.8-20.1); Calc. Creatinine Clearance 0 mL/min (70-130); Calcium 9.2 mg/dL (7.8-10.44); Carbon Dioxide 24 mmol/L (23-31); Chloride 110 mmol/L (98-107); Estimated GFR-MDRD 49; Glucose 128 mg/dL (83-110); Potassium 4.3 mmol/L (3.5-5.1); Sodium 142 mmol/L (136-145)
--- NOTE | 2019-05-13 12:35 | HP ---
CHIEF COMPLAINT: GI bleed. HISTORY OF PRESENT ILLNESS: This patient is a 73-year-old female who presented via the emergency department. The patient had a history of a GI bleed going back to 2014. At that time, the patient was on Xarelto for paroxysmal atrial fibrillation. She had endoscopies about one month prior and therefore no repeat endoscopies were done at that time as this was felt to be due to Xarelto and it resolved with cessation. The patient was also here in February of 2019 with atrial fibrillation with rapid ventricular response. The patient has not been on anticoagulation since her GI bleed and did not want to go back on it at that time. She did of note have an ejection fraction of 30% to 35% and is currently wearing a LifeVest. The patient reports that last night around 9:00 p.m., she started passing very dark red blood per rectum. She had 3 to 4 bowel movements over 30 minutes to an hour and then it stopped. She presented to the emergency department, but she has had no subsequent bowel movements. She has some mild upper abdominal soreness, but had no specific abdominal pain. She had no cramping, no nausea. She does report that she felt a little dizzy when she got up to go to the bathroom last evening. REVIEW OF SYSTEMS: She denies fevers or chills. She has had normal appetite and thirst. She denies polyuria, polydipsia. Denies any chest pain or significant peripheral edema. All other systems reviewed and were negative. PAST MEDICAL HISTORY: Paroxysmal atrial fibrillation, diabetes mellitus type 2, hypothyroidism, osteoarthritis, hypertension, cardiomyopathy with EF of 30% to 35% with moderate TR, currently wearing a LifeVest, history of prior GI bleed of unknown source. PAST SURGICAL HISTORY: Hysterectomy, breast biopsy. FAMILY HISTORY: Sister with stomach cancer. Coronary artery disease in the family. SOCIAL HISTORY: The patient has a common-law marriage. She has 4 children. She smokes 5 to 10 cigarettes per day. Denies alcohol or drugs. She is full code and either of her daughters would be her surrogate decision maker. ALLERGIES: NONE. CURRENT MEDICATIONS: 1. Tramadol 50 mg q.8 hours p.r.n. 2. Lasix 40 mg daily. 3. Omeprazole 40 mg daily. 4. Lisinopril 10 mg daily. 5. Potassium 20 mEq 2 p.o. daily. 6. Diltiazem extended release 360 mg daily. 7. Metformin 500 mg b.i.d. 8. Aspirin 81 mg daily. 9. Carvedilol 12.25 mg reportedly daily, although it appears that her most recent prescription was for 25 mg b.i.d. 10. Clonidine 0.1 mg b.i.d. 11. Crestor 40 mg daily. 12. Levothyroxine 100 mcg daily. 13. Jackpot 10/325 q.6 hours p.r.n. pain. 14. Amiodarone 200 mg p.o. daily. PHYSICAL EXAMINATION: VITAL SIGNS: BP 109/76, pulse 77, respirations 24, temperature is 98.7, O2 saturation 94% on room air. GENERAL APPEARANCE: Age-appropriate female. She is awake, alert, oriented, pleasant, cooperative, in no distress. HEENT: PERRL. She has no OP lesions. Upper dentures in place. Moist oral mucosa. NECK: Supple and symmetric. No lymphadenopathy, JVD, or bruits. HEART: Regular rate and rhythm without murmurs, gallops, or rubs. LUNGS: Clear to auscultation bilaterally. No wheezes, rales, or rhonchi noted. She has symmetric chest expansion. ABDOMEN: Minimally tender in the epigastrium area. Otherwise, soft and nondistended. Positive bowel sounds. No masses. No organomegaly. EXTREMITIES: No cyanosis, clubbing, or edema. Peripheral pulses are present, symmetric. PSYCHIATRIC: Normal affect and behavior. NEUROLOGIC: Cranial nerves are intact. She appears to have normal sensation. Spontaneous movement of all extremities. No focal deficits. Normal cognition. LABORATORY DATA: White count 5.5, hemoglobin 12.9, platelets 254. Sodium 142, potassium 3.8, chloride 107, CO2 of 26, BUN 18, creatinine is 1.52, glucose 166, calcium 9.5. LFTs normal. IMPRESSION AND PLAN: 1. Gastrointestinal bleed. The patient presented with 3 to 4 episodes of melena which resolved roughly 11 hours ago. She has had none since. Hemoglobin appears to be good. We will recheck that now. We will keep her n.p.o., consult GI for possible endoscopy. We will hold aspirin for the moment. 2. Acute on chronic kidney injury. We will hold her Lasix. Her normal GFR appears to be ranging from the upper 40s to 70s. She is not too far off her baseline but slightly lower. 3. Chronic kidney disease stage 3. 4. History of paroxysmal atrial fibrillation, is not on anticoagulation due to the history of the GI bleeds. 5. Cardiomyopathy with EF of 30% to 35%, currently wearing a LifeVest. 6. Diabetes mellitus. We will continue with metformin, Accu-Cheks and a diabetic diet. 7. Hypothyroidism. Continue usual home levothyroxine dose. 8. Hypertension. Continue with her usual home regimen of JOSE D inhibitors, clonidine, and beta-blockers. 9. Osteoarthritis. Continue with pain management. Job ID: [id number]
[2019-05-13] MEDS ORDERED: Carvedilol 6.25 MG TAB PO SCH (14:00)
[2019-05-13] MEDS ORDERED: Amiodarone 200 MG TAB PO SCH (14:15)
[2019-05-13] MEDS ORDERED: Pantoprazole 40 MG VIAL IVP SCH (14:15)
[2019-05-13] MEDS ORDERED: cloNIDine 0.1 MG TAB PO SCH (14:15)
[2019-05-13] MEDS ORDERED: Potassium Chloride 20 MEQ TAB PO SCH (14:15)
[2019-05-13] MEDS ORDERED: metFORMIN 500 MG TAB PO SCH (14:15)
[2019-05-13] MEDS ORDERED: Lisinopril 10 MG TAB PO SCH (14:15)
[2019-05-13] MEDS ORDERED: Levothyroxine Sodium 100 MCG TAB PO SCH (14:15)
[2019-05-13] MEDS ORDERED: Potassium Chloride 20 MEQ TAB ONE (15:40)
[2019-05-13 18:26] VITALS: BMI 25.8
[2019-05-13] MEDS: Pantoprazole 40 MG VIAL IVP SCH ×2 (19:54→21:27)
[2019-05-13] MEDS: cloNIDine 0.1 MG TAB PO SCH ×2 (19:56→20:17)
[2019-05-13] MEDS: Amiodarone 200 MG TAB PO SCH (19:56)
[2019-05-13] MEDS: Potassium Chloride 20 MEQ TAB PO SCH (19:57)
[2019-05-13] MEDS: Lisinopril 10 MG TAB PO SCH (19:57)
[2019-05-13] MEDS: Carvedilol 6.25 MG TAB PO SCH (19:58)
[2019-05-13] MEDS: metFORMIN 500 MG TAB PO SCH (19:58)
[2019-05-14 06:11] LABS: #Basophils 0.1 thou/uL (0.0-0.2); #Eosinphils 0.2 thou/uL (0.0-0.7); #Lymphocytes 3.4 thou/uL (1.20-3.40); #Monocytes 0.7 thou/uL (0.11-0.59); #Neutrophils 4.2 thou/uL (1.40-6.50); %Basophils 1.2 % (0.0-1.0); %Eosinophils 1.8 % (0.0-10.0); %Lymphocytes 39.6 % (21.0-51.0); %Monocytes 7.8 % (0.0-10.0); %Neutrophils 49.7 % (42.0-75.0); Hemoglobin 9.8 g/dL (12.0-16.0); Mean Corpuscular HGB CONC 33.2 g/dL (32.0-36.0); Mean Corpuscular Volume 99.2 fL (78.0-98.0); Mean Platelet Volume 7.8 fL (7.4-10.4); Platelet Count 200 thou/uL (130-400); RBC Distribution Width 14.5 % (11.5-14.5); Red Blood Cell (RBC) Count 2.97 mill/uL (4.20-5.40); White Blood Cell (WBC) Count 8.5 thou/uL (4.8-10.8)
[2019-05-14] MEDS: Levothyroxine Sodium 100 MCG TAB PO SCH (06:40)
[2019-05-14] MEDS: Amiodarone 200 MG TAB PO SCH ×2 (07:40→12:21)
[2019-05-14] MEDS: cloNIDine 0.1 MG TAB PO SCH ×2 (07:40→12:20)
[2019-05-14] MEDS: metFORMIN 500 MG TAB PO SCH ×2 (07:40→16:29)
[2019-05-14] MEDS: Lisinopril 10 MG TAB PO SCH ×2 (07:40→12:20)
[2019-05-14] MEDS: Potassium Chloride 20 MEQ TAB PO SCH ×2 (07:41→12:21)
[2019-05-14] MEDS: Carvedilol 6.25 MG TAB PO SCH ×2 (08:10→16:29)
[2019-05-14] MEDS: Pantoprazole 40 MG VIAL IVP SCH ×2 (08:10→21:08)
--- NOTE | 2019-05-14 12:43 | CON ---
DATE OF CONSULTATION: 05/14/2019 REASON FOR CONSULTATION: Hematochezia. HISTORY OF PRESENT ILLNESS: Ms. Pressley is a 73-year-old female, who presented to the emergency room with a chief complaint of having bloody stool. This started 2 days ago when she characterized her stool as dark reddish loose stool. She had several episodes at home with one additional episode yesterday morning, which was more than 24 hours ago after being admitted to the hospital. There was no localizing abdominal pain or discomfort. She denies having had any nausea or vomiting. She does not have any orthostatic symptoms such as lightheadedness, dizziness, or syncope. Over the last 24 hours, she has not had any further bowel movements. Currently, she feels fine without any complaints. The patient had an outpatient upper endoscopy and colonoscopy by Dr. Munoz in 2014. Both examinations were unremarkable except for diverticulosis coli noted on her colon exam. The patient does have a significant cardiac history with atrial fibrillation in addition to cardiomyopathy with an ejection fraction of 30% to 35% on transesophageal echocardiogram done 2 months ago. Her current GI review of system was otherwise unremarkable. PAST MEDICAL HISTORY: 1. Atrial fibrillation. 2. Cardiomyopathy with EF of 30% to 35%. 3. Adult onset diabetes. 4. Hypertension. 5. Hypothyroidism. 6. Status post hysterectomy. ALLERGIES: NONE. MEDICATIONS: Her current medications include: 1. Amiodarone. 2. Coreg. 3. Catapres. 4. Diltiazem. 5. Synthroid. 6. Lisinopril. 7. Metformin. 8. Pantoprazole. SOCIAL HISTORY: The patient lives here locally. She is a chronic smoker, currently 10 cigarettes a day. No significant alcohol consumption. FAMILY HISTORY: Negative for any known GI problem, liver disease, or GI malignancy. REVIEW OF SYSTEMS: Ten-point review of systems did not show any other pertinent positives or negatives or any other symptoms otherwise not stated above. PHYSICAL EXAMINATION: VITAL SIGNS: Temperature is 98.1, blood pressure 123/72, pulse of 62. GENERAL: She is alert, conversant, in no distress. HEENT: Exam shows anicteric sclerae. Oropharynx is clear. NECK: Supple. CV: Shows normal S1 and S2. Regular rate and rhythm. CHEST: Shows breath sounds. She is wearing a LifeVest. ABDOMEN: Soft and nontender. No distention. No tympany. No palpable splenomegaly or hepatomegaly. She has active bowel sounds. No tenderness on palpation. EXTREMITIES: Exam shows no edema. LABORATORY DATA: WBCs 8.5, hemoglobin 9.8 (12.9, 11.2 yesterday), platelet count of 200. Electrolytes within normal range. Creatinine is 1.29, BUN of 49. ASSESSMENT: 1. A 73-year-old female, presented with painless hematochezia 2 days ago, that appears to have stopped over the last 24 hours. Her exam is benign. Previous endoscopy was notable for diverticulosis coli 5 years ago. Her bleeding that prompted this admission is most likely from diverticular bleed that has resolved. Brisk upper gastrointestinal bleed is unlikely. Without associated abdominal pain, ischemic colitis is less likely. At any rate, bleeding appears to have stopped. 2. Anemia, likely of acute gastrointestinal blood loss. Hemoglobin is trending slightly downward, but I suspect this is from normal equilibration. 3. Cardiomyopathy/atrial fibrillation. 4. Diabetes. 5. Hypothyroidism. RECOMMENDATIONS: 1. At this point, further GI evaluation or intervention is not needed. 2. I would have the patient resume diet. 3. Can be discharged if she tolerates diet and her blood count stabilizes. Job ID: [id number]
--- NOTE | 2019-05-14 15:56 | PDOC.HOSPP ---
- Subjective Encounter Date: 05/14/19 Encounter Time: 15:54 Subjective: Ms. Pressley was seen today in follow-up of GI bleed. She does not have any complaints. She has not noted any additional bleeding. - Objective Vital Signs & Weight: Vital Signs (12 hours) Temp Pulse Resp BP BP Pulse Ox 05/14/19 12:20 123/72 05/14/19 11:10 98.1 F 62 16 123/72 100 05/14/19 08:10 139/79 97 05/14/19 08:00 98.3 F 69 18 139/79 97 05/14/19 04:00 98.3 F 69 18 127/69 100 Weight Weight 145 lb 15.136 oz I&O: 05/13/19 05/14/19 05/15/19 06:59 06:59 06:59 Intake Total 210 Balance 210 Result Diagrams: 05/14/19 05:16 05/13/19 08:44 Additional Labs: Accuchecks 05/14/19 05/14/19 05/13/19 11:14 04:44 20:38 POC Glucose 128 H 114 H 136 H 05/13/19 17:17 POC Glucose 121 H Hospitalist ROS - Medication Medications: Active Medications Generic Name Dose Route Start Last Admin Trade Name Freq PRN Reason Stop Dose Admin Amiodarone HCl 200 mg 05/13/19 09:00 05/14/19 12:21 Cordarone PO 200 mg DAILY HOLLEY Administration Carvedilol 6.25 mg 05/13/19 17:00 05/14/19 08:10 Coreg PO 6.25 mg BID-WM HOLLEY Administration Clonidine 0.1 mg 05/13/19 09:00 05/14/19 12:20 Catapres PO 0.1 mg BID HOLLEY Administration Diltiazem HCl 360 mg 05/13/19 09:00 05/14/19 12:21 Cardizem Cd PO 360 mg DAILY HOLLEY Administration Levothyroxine Sodium 100 mcg 05/14/19 06:00 05/14/19 06:40 Synthroid PO Not Given 0600 HOLLEY Lisinopril 10 mg 05/13/19 09:00 05/14/19 12:20 Zestril PO 10 mg DAILY HOLLEY Administration Metformin HCl 500 mg 05/13/19 17:00 05/14/19 07:40 Glucophage PO Not Given BID-WM HOLLEY Pantoprazole Sodium 40 mg 05/13/19 09:00 05/14/19 08:10 Protonix IVP 40 mg Q12HR HOLLEY Administration Potassium Chloride 40 meq 05/13/19 09:00 05/14/19 12:21 K-Dur PO 40 meq DAILY HOLLEY Administration Sodium Chloride 10 ml 05/13/19 09:00 05/14/19 08:10 Flush - Normal Saline IVF 10 ml Q12HR HOLLEY Administration - Exam Eye: PERRL, anicteric sclera Heart: RRR, no murmur, no gallops, no rubs, normal peripheral pulses Respiratory: CTAB, no wheezes, no rales, no ronchi, normal chest expansion, no tachypnea, normal percussion Gastrointestinal: soft, non-tender, non-distended, normal bowel sounds, no palpable masses, no hepatomegaly Extremities: no cyanosis, no clubbing, no edema Hosp A/P (1) GI bleed Code(s): K92.2 - GASTROINTESTINAL HEMORRHAGE, UNSPECIFIED Status: Acute (2) Acute blood loss anemia Code(s): D62 - ACUTE POSTHEMORRHAGIC ANEMIA Status: Acute (3) Hypertension Code(s): I10 - ESSENTIAL (PRIMARY) HYPERTENSION Status: Chronic (4) Hypothyroidism Code(s): E03.9 - HYPOTHYROIDISM, UNSPECIFIED Status: Chronic (5) PAF (paroxysmal atrial fibrillation) Code(s): I48.0 - PAROXYSMAL ATRIAL FIBRILLATION Status: Chronic - Plan * GI Bleed- likely from Diverticulosis. She has been seen by Dr. nair, and she does not require further work-up at this time * Will repeat her H&H in the AM, and if it is around 9, then she can be discharged home * DM- blood glucose is stable * HTN- blood pressure is stable * AFIB - clinically stable, and she is not on anticoagulation ( due to GI bleed) * Likely home tomorrow
[2019-05-15 00:36] VITALS: TEMP 98.1
[2019-05-15] MEDS: Levothyroxine Sodium 100 MCG TAB PO SCH (05:34)
[2019-05-15 05:48] LABS: #Basophils 0.1 thou/uL (0.0-0.2); #Eosinphils 0.2 thou/uL (0.0-0.7); #Monocytes 0.6 thou/uL (0.11-0.59); %Basophils 1.5 % (0.0-1.0); %Lymphocytes 43.8 % (21.0-51.0); %Monocytes 8.6 % (0.0-10.0); %Neutrophils 43.1 % (42.0-75.0); Hemoglobin 8.7 g/dL (12.0-16.0); Mean Corpuscular HGB CONC 34.3 g/dL (32.0-36.0); Mean Corpuscular Hemoglobin 33.8 pg (27.0-31.0); Mean Corpuscular Volume 98.6 fL (78.0-98.0); Mean Platelet Volume 7.5 fL (7.4-10.4); Platelet Count 182 thou/uL (130-400); RBC Distribution Width 14.6 % (11.5-14.5); Red Blood Cell (RBC) Count 2.57 mill/uL (4.20-5.40); White Blood Cell (WBC) Count 6.9 thou/uL (4.8-10.8)
[2019-05-15] MEDS ORDERED: cloNIDine 0.1 MG TAB PO SCH (09:00)
[2019-05-15] MEDS: Lisinopril 10 MG TAB PO SCH (09:26)
[2019-05-15] MEDS: Amiodarone 200 MG TAB PO SCH (09:26)
[2019-05-15] MEDS: Potassium Chloride 20 MEQ TAB PO SCH (09:27)
[2019-05-15] MEDS: Carvedilol 6.25 MG TAB PO SCH (09:27)
[2019-05-15] MEDS: metFORMIN 500 MG TAB PO SCH (09:27)
[2019-05-15] MEDS: Pantoprazole 40 MG VIAL IVP SCH (09:27)
[2019-05-15 09:36] VITALS: BP 139/61
== END 2019-05-15 10:58 | disposition home or self-care (01) | DRG 378 ==
LOC: ERS 01:41 → ERHOLD 02:53 → T4-A 18:17
PROVIDERS: ADMIT Family Medicine; ATTEND Internal Medicine
DX: K57.91 Diverticulosis of intestine, part unspecified, without perforation or abscess with bleeding (principal); I42.9 Cardiomyopathy, unspecified; N17.9 Acute kidney failure, unspecified; D62 Acute posthemorrhagic anemia; E03.9 Hypothyroidism, unspecified; E78.5 Hyperlipidemia, unspecified; E78.00 Pure hypercholesterolemia, unspecified; M19.90 Unspecified osteoarthritis, unspecified site; I48.0 Paroxysmal atrial fibrillation; E11.22 Type 2 diabetes mellitus with diabetic chronic kidney disease; N18.3 Chronic kidney disease, stage 3 (moderate); I25.10 Atherosclerotic heart disease of native coronary artery without angina pectoris; I12.9 Hypertensive chronic kidney disease with stage 1 through stage 4 chronic kidney disease, or unspecified chronic kidney disease; F17.210 Nicotine dependence, cigarettes, uncomplicated; Z79.01 Long term (current) use of anticoagulants; Z90.710 Acquired absence of both cervix and uterus
CPT/HCPCS: 36415; 36416; 80053; 85025; 86850; 86900; 86901; 86922; 96361; 96374; 99406; C9113

== ENCOUNTER 2019-08-07 10:51 | Emergency (ER) | payer MEDICARE, MEDICAID, OTHER ==
[2019-08-07 20:13] LABS: SARS-CoV-2 MS2 Positive; SARS-CoV-2 N Gene Negative; SARS-CoV-2 S Gene Negative; SARS-CoV-2 orf1ab Negative
== END 2019-08-07 12:08 | disposition home or self-care (01) ==
LOC: ERS 10:51
DX: Z20.828 Contact with and (suspected) exposure to other viral communicable diseases (principal); I48.91 Unspecified atrial fibrillation; E03.9 Hypothyroidism, unspecified; E78.00 Pure hypercholesterolemia, unspecified; I25.10 Atherosclerotic heart disease of native coronary artery without angina pectoris; M19.90 Unspecified osteoarthritis, unspecified site; I10 Essential (primary) hypertension; F17.210 Nicotine dependence, cigarettes, uncomplicated; E11.9 Type 2 diabetes mellitus without complications; Z79.84 Long term (current) use of oral hypoglycemic drugs; Z79.891 Long term (current) use of opiate analgesic; Z79.899 Other long term (current) drug therapy
CPT/HCPCS: 99283; U0003; 87635

== ENCOUNTER 2019-09-04 09:13 | Outpatient (CLI) | payer MEDICARE, MEDICAID ==
--- NOTE | 2019-09-04 11:50 | MMO ---
Bilateral MAMMO Bilat Screen [facility]DI+MIN. CLINICAL HISTORY: Patient is 74 years old and is seen for screening. The patient has the following family history of breast cancer: 2 cousin females. The patient has no personal history of cancer. The patient has a history of right Ultrasound Guided Core Biopsy in Jul, 2015 - benign. VIEWS: The views performed were: bilateral craniocaudal with tomosynthesis and bilateral mediolateral oblique with tomosynthesis. FILMS COMPARED: The present examination has been compared to prior imaging studies performed at [facility] on 06/15/2016, 06/20/2017 and 06/21/2018. This study has been interpreted with the assistance of computer-aided detection. MAMMOGRAM FINDINGS: There are scattered fibroglandular densities. Benign calcifications are noted bilaterally. Right biopsy clip. There are no suspicious masses, suspicious calcifications, or new areas of architectural distortion. IMPRESSION: THERE IS NO MAMMOGRAPHIC EVIDENCE OF MALIGNANCY. A ROUTINE FOLLOW-UP MAMMOGRAM IN 1 YEAR IS RECOMMENDED. THE RESULTS OF THIS EXAM WERE SENT TO THE PATIENT. ACR BI-RADS Category 2 - Benign finding MAMMOGRAPHY NOTE: 1. A negative mammogram report should not delay a biopsy if a dominant of clinically suspicious mass is present. 2. Approximately 10% to 15% of breast cancers are not detected by mammography. 3. Adenosis and dense breasts may obscure an underlying neoplasm. Reported by: ROSITA MCCULLOUGH MD Electonically Signed: [id number]
== END 2019-09-04 09:14 | disposition home or self-care (01) ==
LOC: BICMAMMO 09:13
PROVIDERS: ATTEND Family Medicine
DX: Z12.31 Encounter for screening mammogram for malignant neoplasm of breast (principal); Z80.3 Family history of malignant neoplasm of breast; Z91.89 Other specified personal risk factors, not elsewhere classified
CPT/HCPCS: 77063; 77067

== ENCOUNTER 2020-01-14 14:06 | Observation (INO) | payer MEDICARE, MEDICAID, OTHER ==
[2020-01-14] MEDS ORDERED: Aspirin Chewable 81 MG TAB ONE (14:40)
--- NOTE | 2020-01-14 14:49 | RAD ---
EXAM: Single view of the chest HISTORY: Chest pain and shortness of breath COMPARISON: 03/15/2019 FINDINGS: Single view of the chest shows an enlarged but stable cardiomediastinal silhouette. There is a left subclavian pacemaker with its leads in the right atrium and ventricle. No pneumothorax is seen. There is no evidence of consolidation, mass, or pleural effusion. No acute osseous abnormality . IMPRESSION: 1. Cardiomegaly 2. Interval placement of pacemaker without evidence of complication.
[2020-01-14 15:07] LABS: #Basophils 0.1 thou/uL (0.0-0.2); #Eosinphils 0.1 thou/uL (0.0-0.7); #Lymphocytes 2.6 thou/uL (1.20-3.40); #Monocytes 0.6 thou/uL (0.11-0.59); #Neutrophils 2.6 thou/uL (1.40-6.50); %Basophils 1.7 % (0.0-1.0); %Eosinophils 2.3 % (0.0-10.0); %Lymphocytes 43.4 % (21.0-51.0); %Monocytes 9.3 % (0.0-10.0); %Neutrophils 43.3 % (42.0-75.0); Hemoglobin 13.9 g/dL (12.0-16.0); Mean Corpuscular HGB CONC 33.2 g/dL (32.0-36.0); Mean Corpuscular Hemoglobin 33.8 pg (27.0-31.0); Mean Platelet Volume 7.7 fL (7.4-10.4); Platelet Count 228 thou/uL (130-400); RBC Distribution Width 13.1 % (11.5-14.5); Red Blood Cell (RBC) Count 4.11 mill/uL (4.20-5.40); White Blood Cell (WBC) Count 5.9 thou/uL (4.8-10.8)
[2020-01-14 15:20] LABS: ALT (SGPT) 18 U/L (8-55); AST (SGOT) 19 U/L (5-34); Albumin 4.4 g/dL (3.4-4.8); Alkaline Phosphatase 53 U/L (40-110); Anion Gap 15 mmol/L (10-20); BUN (Urea Nitrogen) 12 mg/dL (9.8-20.1); Bilirubin, Total 0.2 mg/dL (0.2-1.2); Calc. Creatinine Clearance 0 mL/min (70-130); Calcium 9.8 mg/dL (7.8-10.44); Carbon Dioxide 25 mmol/L (23-31); Chloride 105 mmol/L (98-107); Estimated GFR-MDRD 44; Globulin 2.9 g/dL (2.4-3.5); Glucose 119 mg/dL (83-110); Potassium 4.3 mmol/L (3.5-5.1); Protein, Total 7.3 g/dL (6.0-8.3); Sodium 141 mmol/L (136-145)
--- NOTE | 2020-01-14 16:16 | CT ---
CT arteriogram chest with IV contrast and 3-D imaging HISTORY: Chest pain. Dyspnea. COMPARISON: 11/14/2015. FINDINGS: There is good contrast opacification of the pulmonary arteries. Thoracic aorta is not opaci fied at the time of imaging. Diffuse prominence of the aorta is similar without focal aneurysmal dilatation apparent. No pericardial fluid. Scattered areas of mild scarring/atelectasis at the lung bases noted. A single slice focus of endobro nchial mucous plug noted within the left upper lobe on image #[id number]. No distal sequela. IMPRESSION : No evidence of pulmonary embolus or other acute abnormality.
[2020-01-14 17:11] LABS: Bilirubin Negative (Negative); Blood, Urine Negative (Negative); Clarity Clear (Clear); Glucose, Urine (Dipstick) Normal (Negative); Ketone, Urine Negative (Negative); Leukocyte Negative Leu/uL (Negative); Nitrite Negative (Negative); Protein, Urine (Dipstick) 10 mg/dL (Neg-Trace); Specific Gravity, Urine 1.011 (1.002-1.036); Urobilinogen Normal mg/dL (Less than 2)
[2020-01-14 17:25] LABS: Troponin I 0.018 ng/mL (< 0.028)
[2020-01-14] MEDS ORDERED: hydrALAZINE 20 MG/ML VIAL SLOW IVP PRN (19:10)
--- NOTE | 2020-01-14 19:23 | PDOC.HHP ---
Hospitalist HPI - History of Present Illness Chest pain History of Present Illness: This a 74-year-old female patient with a diabetes mellitus, GI bleed, hypertension, hyperlipidemia carotid artery disease hypothyroidism, mitral regurgitation who presents with ongoing intermittent chest pain for the past m onth. She came in with her daughter The pain is located in your lower chest running across from left to right, 45/10 in intensity, intermittent lasts a few minutes with occasional radiation to her neck. No clear association with activity. No associated nausea and diaphoresis. She however has easy fatigability. Given the persistence of the symptoms she decided to come to the ED today for further evaluation. She denies associated cough wheezing or swelling of her feet. She also denies any fever sore throat recent long distance travel or any viral- like syndrome. She had a transesophageal echocardiogram on 11/07/2019 which revealed moderate to severe decreased left ventricular systolic function, mild left atrial enlargement and left ventricle moderately dilated. Also had moderate to severe mitral regurgitation, mild to moderate aortic regurgitation. Home medications include clonidine, amiodarone carvedilol rosuvastatin and aspirin. She also takes Lasix. She denies having missed any of her medications. At presentation her blood pressure was 201/112, pulse 74, respiratory rate 16, saturation 100% on room air. Troponin was within normal range of 0.018, BNP was 162, D-dimer 0.82 on account of which she had CTA which was negative for PE.. Creatinine was 1.41 around baseline WBC hemoglobin and platelets were within normal limits. Chest x-ray showed cardiomegaly with no evidence of acute cardiopulmonary process. EKG showed sinus rhythm with first-degree heart block. She was given aspirin 3 to 4 mg and monitor on telemetry Hospitalist team was consulted to admit. Hospitalist ROS - Review of Systems Constitutional: reports: weakness. denies: fever, chills, sweats Respiratory: reports: shortness of breath, SOB with excertion. denies: cough, hemoptysis Cardiovascular: reports: chest pain. denies: palpitations, orthopnea, paroxysmal noc. dyspnea Gastrointestinal: denies: nausea, vomiting, abdominal pain, diarrhea Genitourinary: denies: dysuria, frequency, incontinence, hematuria Neurological: denies: weakness, numbness, incoordination Hospitalist History - Past Medical History Cardiac: reports: CAD, CHF Endocrine: reports: Diabetes - Past Surgical History Other Surgical History: Pacemaker placement, hysterectomy - Family History Other Family History: Diabetes mellitus, hypertension - Social History Smoking Status: Current every day smoker Alcohol: reports: None Living Situation: With Family - Exam General Appearance: awake alert General - other findings: In no acute distress. Eye: PERRL, anicteric sclera Hospitalist Results - Labs Result Diagrams: 01/14/20 14:49 01/14/20 14:49 Lab results: WBC 5.9 thou/uL (4.8-10.8) 01/14/20 14:49 Hgb 13.9 g/dL (12.0-16.0) 01/14/20 14:49 Hct 41.9 % (36.0-47.0) 01/14/20 14:49 MCV 102.0 fL (78.0-98.0) H 01/14/20 14:49 Plt Count 228 thou/uL (130-400) 01/14/20 14:49 Neutrophils % 43.3 % (42.0-75.0) 01/14/20 14:49 Sodium 141 mmol/L (136-145) 01/14/20 14:49 Potassium 4.3 mmol/L (3.5-5.1) 01/14/20 14:49 Chloride 105 mmol/L (98-107) 01/14/20 14:49 Carbon Dioxide 25 mmol/L (23-31) 01/14/20 14:49 BUN 12 mg/dL (9.8-20.1) 01/14/20 14:49 Creatinine 1.41 mg/dL (0.6-1.1) H 01/14/20 14:49 Glucose 119 mg/dL (83-110) H 01/14/20 14:49 Calcium 9.8 mg/dL (7.8-10.44) 01/14/20 14:49 Total Bilirubin 0.2 mg/dL (0.2-1.2) 01/14/20 14:49 AST 19 U/L (5-34) 01/14/20 14:49 ALT 18 U/L (8-55) 01/14/20 14:49 Alkaline Phosphatase 53 U/L (40-110) 01/14/20 14:49 Troponin I 0.018 ng/mL (< 0.028) 01/14/20 16:53 B-Natriuretic Peptide 162.8 pg/mL (0-100) H 01/14/20 14:49 Serum Total Protein 7.3 g/dL (6.0-8.3) 01/14/20 14:49 Albumin 4.4 g/dL (3.4-4.8) 01/14/20 14:49 Urine Ketones Negative mg/dL (Negative) 01/14/20 16:10 Urine Blood Negative (Negative) 01/14/20 16:10 Urine Nitrite Negative (Negative) 01/14/20 16:10 Ur Leukocyte Esterase Negative Riaz/uL (Negative) 01/14/20 16:10 Hospitalist H&P A/P - Plan Plan: This is a 74-year-old female patient with a history of heart failure, arrhythmias with pacemaker placement, valvular heart disease, hypertension pres enting with a month-long history of intermittent chest pain and worsening dyspnea on exertion. Chest pain Unclear etiologyangina/GERD. CT was negative for PE Troponin has remained flat We will continue on aspirin and nitroglycerin for now. No recent stress test on file Possible stress test tomorrow Possible heart failure exacerbation recent transesophageal echo 10/2019 She is having dyspnea on exertion which is worsening Mild bilateral pedal edema however BNP is not elevated, she is however obese We will consider mild diuresis Daily weight Given her extensive myocardial and valvular problems will consult cardiology in a.m. for further directions. Uncontrolled hypertension Resume home blood pressure medications once verified As needed hydralazine/labetalol Monitor BP Hypothyroidism Continue levothyroxine Diabetes mellitus Correctional dosing insulin Monitor glucose. Possible mild PREMA on CKD Monitor renal function VT prophylaxisLovenox CODE STATUSfull code Diffusely daughter
[2020-01-14] MEDS ORDERED: Dextrose 5% in Water 1,000 ML IV PRN (19:58)
[2020-01-14] MEDS ORDERED: Dextrose 50% Abboject 50 ML SYRINGE SLOW IVP PRN (19:58)
[2020-01-14] MEDS ORDERED: Labetalol HCl 100 MG/20 ML VIAL SLOW IVP PRN (20:00)
[2020-01-14] MEDS ORDERED: Nitroglycerin 0.4 MG TAB (25 Tab Bottle) SL PRN (20:04)
[2020-01-14 20:33] VITALS: BMI 29.9
[2020-01-14] MEDS ORDERED: Carvedilol 25 MG TAB PO SCH (21:00)
[2020-01-14] MEDS ORDERED: Furosemide 40 MG/4 ML VIAL SLOW IVP SCH (21:00)
[2020-01-14 21:14] LABS: Troponin I 0.028 ng/mL (< 0.028)
[2020-01-14 21:28] LABS: Hemoglobin A1c 5.9 % (4.0-6.0)
[2020-01-15 00:24] LABS: Troponin I 0.016 ng/mL (< 0.028)
--- NOTE | 2020-01-15 00:59 | PDOC.FMACP ---
Advance Care Planning - Note Summary: Advanced Care Planning was discussed. The diagnosis, prognosis and goals of care were discussed. Code status is full code.She does not have a DPOA but notes her daughter, who was present would be the decision maker for her
[2020-01-15 05:40] LABS: Anion Gap 15 mmol/L (10-20); BUN (Urea Nitrogen) 12 mg/dL (9.8-20.1); Calc. Creatinine Clearance 44 mL/min (70-130); Calcium 9.5 mg/dL (7.8-10.44); Carbon Dioxide 29 mmol/L (23-31); Chloride 102 mmol/L (98-107); Estimated GFR-MDRD 48; Glucose 111 mg/dL (83-110); Potassium 3.5 mmol/L (3.5-5.1); Sodium 142 mmol/L (136-145)
[2020-01-15 05:57] LABS: Hemoglobin 14.3 g/dL (12.0-16.0); Mean Corpuscular HGB CONC 33.3 g/dL (32.0-36.0); Mean Corpuscular Hemoglobin 33.8 pg (27.0-31.0); Mean Platelet Volume 7.7 fL (7.4-10.4); Platelet Count 234 thou/uL (130-400); RBC Distribution Width 13.1 % (11.5-14.5); Red Blood Cell (RBC) Count 4.24 mill/uL (4.20-5.40); White Blood Cell (WBC) Count 6.4 thou/uL (4.8-10.8)
[2020-01-15 06:29] LABS: #Eosinphils 0.2 thou/uL (0.0-0.7); #Lymphocytes 3.2 thou/uL (1.20-3.40); #Monocytes 0.6 thou/uL (0.11-0.59); #Neutrophils 2.4 thou/uL (1.40-6.50); %Basophils 0.7 % (0.0-1.0); %Eosinophils 3.3 % (0.0-10.0); %Lymphocytes 49.3 % (21.0-51.0); %Monocytes 8.6 % (0.0-10.0); %Neutrophils 38.1 % (42.0-75.0); MDiff Complete? YES; Target Cells SLIGHT = 2-5 cells (100X) (0-1/hpf)
[2020-01-15] MEDS: Enoxaparin Sodium 30 MG/0.3 ML SYRINGE SC SCH ×2 (08:44→08:51)
[2020-01-15] MEDS: Carvedilol 25 MG TAB PO SCH ×2 (08:44→17:26)
[2020-01-15] MEDS ORDERED: Rosuvastatin 20 MG TAB PO SCH (09:00)
[2020-01-15] MEDS ORDERED: Aspirin 81 mg Enteric Coated Tablet PO SCH (09:00)
[2020-01-15] MEDS ORDERED: Furosemide 40 MG/4 ML VIAL SLOW IVP SCH ×2 (09:00)
[2020-01-15] MEDS ORDERED: Non-Formulary Item 1 EACH (Lisinopril [Zestril] 40 MG Tablet) PO SCH (09:00)
[2020-01-15 10:36] LABS: SARS-CoV-2 MS2 Positive; SARS-CoV-2 N Gene Negative; SARS-CoV-2 S Gene Negative; SARS-CoV-2 by NAA Not Detected (NotDetected); SARS-CoV-2 orf1ab Negative
[2020-01-15 11:55] VITALS: TEMP 98.7
[2020-01-15] MEDS ORDERED: Potassium Chloride 20 MEQ TAB PO SCH (16:15)
[2020-01-15 16:35] VITALS: BP 143/91
--- NOTE | 2020-01-15 17:26 | CON ---
DATE OF CONSULTATION: PRIMARY ADMITTING INTERVIEWER: Dr. Mikhail Greer. REASON FOR CONSULTATION: Congestive heart failure, systolic and diastolic mixed. HISTORY OF PRESENT ILLNESS: Ms. Pressley is a very pleasant patient Dr. Mikhail Greer, 74 years of age, came to the hospital yesterday with difficulty breathing. She received diuretics and has had a good response. She feels fine now. She is breathing normally. She wants to go home. She has a history of cardiac catheterization in the remote past showing normal coronary arteries. The patient otherwise has been doing fairly well. As an outpatient, she was taking lisinopril 20 mg a day, furosemide 20 mg a day, carvedilol 25 mg twice a day, amiodarone 200 mg a day, Crestor 40 mg a day, diltiazem 180 mg tablet two a day. PAST MEDICAL HISTORY: She had a history of GI bleeding, cannot be anticoagulated. She is fortunately maintaining sinus rhythm. REVIEW OF SYSTEMS: CONSTITUTIONAL: No significant weight gain or loss. VISION: No changes. HEARING: No changes. PULMONARY: No cough or wheezing. PHYSICAL EXAMINATION: GENERAL: On examination, she feels fine. VITAL SIGNS: Blood pressure is 149/87, pulse 69. LUNGS: Clear. CARDIAC: Normal S1, normal S2. ABDOMEN: Soft, nontender. EXTREMITIES: She has no clubbing, cyanosis, or edema. LABORATORY DATA: Her creatinine is 1.3, was 1.4 yesterday. Potassium is 3.5. Troponin levels were normal. IMAGING STUDIES: EKG, sinus rhythm with a first-degree AV block. Chest x-ray to my interpretation looks like some pulmonary vascular congestion yesterday. She has a defibrillator in place. ASSESSMENT: Congestive heart failure, systolic and diastolic mixed, and transesophageal echo done by Dr. Briones did reveal some left ventricular dysfunction, although we did not estimate the ejection fraction. PLAN: 1. Stop diltiazem. 2. Continue furosemide. 3. Increase lisinopril. 4. The patient could be discharged to home to follow up with Dr. Greer as an outpatient. Echocardiogram could be done as an outpatient. Job ID: [id number]
[2020-01-15] MEDS ORDERED: Lisinopril 20 MG TAB PO SCH (21:00)
--- NOTE | 2020-01-15 21:09 | PDOC.DS.DS ---
Provider - Provider Date of Admission: 01/14/20 18:27 Date of Discharge: 01/15/20 Admitting Provider: Barrington Crandall MD Primary Care Physician: Elyse Tam MD Course - Hospital Course Hospital Course: This is a 74-year-old female patient with history of diabetes, previous GI bleed, hypertension carotid artery disease who presented on account of ongoing chest pain. She was admitted for further evaluation and stress test. On admission however patient refused to be stressed. Cardiology was consulted and proposed changes to her medications. She was on Cardizem which was stopped, furosemide was continued and lisinopril dose was increased from 10 to 20 mg/day. She was to follow-up with Dr. Greer in a week for further evaluation and echocardiogram. Resuscitation Status: 01/14/20 19:54 Resuscitation Status Routine Resuscitation Status: FULL: Full Resuscitation - Labs Lab Results: 01/15/20 04:54 01/15/20 04:53 Abnormal Lab Results - Last 48 hrs 01/14/20 14:49: B-Natriuretic Peptide 162.8 H 01/14/20 14:49: RBC 4.11 L, MCV 102.0 H, MCH 33.8 H, Basophils % 1.7 H, Monocyt es # 0.6 H 01/14/20 14:49: Creatinine 1.41 H 01/14/20 15:10: D-Dimer 0.82 H 01/15/20 04:53: Creatinine 1.30 H 01/15/20 04:54: MCV 101.0 H, MCH 33.8 H, Neutrophils % 38.1 L, Monocytes # 0.6 H - Physical Exam Vitals: Vital Signs (12 hours) Temp Pulse Resp BP Pulse Ox 01/15/20 16:00 75 20 143/91 H 01/15/20 11:45 98.7 F 69 18 149/87 H 97 Weight Weight 163 lb 1 oz Physical Exam: The patient was seen and examined on the day of discharge. Problem - Discharge Plan Assessment: A/P 74-year-old female patient on admission on account of chest pain. Chest pain improved overnight Cardiology evaluated for follow-up echo on outpatient basis. Medication changed Diltiazem discontinued Lisinopril dose increased from 10-20 She will continue Lasix Plan - Discharge Medications Home Medications: Medication Instructions Recorded Confirmed Type Levothyroxine Sodium 100 mcg PO 0600 06/23/14 01/14/20 History Rosuvastatin Calcium [Crestor] 40 mg PO DAILY 06/23/14 01/14/20 History Lisinopril [Zestril] 20 mg PO DAILY 08/14/18 01/14/20 History Carvedilol [Coreg] 25 mg PO BID 03/16/19 01/14/20 History Furosemide [Lasix] 40 mg PO DAILY 05/13/19 01/14/20 History HYDROcodone/Acetaminophen 1 tab PO BID PRN 05/13/19 01/14/20 History [Hydrocodone-Acetamin 10-325 mg] cloNIDine HCl 1 tab PO DAILY 05/13/19 01/14/20 History metFORMIN HCl 500 mg PO DAILY 05/13/19 01/14/20 History Ezetimibe [Zetia] 10 mg PO DAILY 11/04/19 01/14/20 History Amiodarone [Cordarone] 200 mg PO DAILY 11/07/19 01/14/20 History Aspirin [Ecotrin Regular Strength] 81 mg PO DAILY 11/07/19 01/14/20 History Allergies: No Known Allergies Allergy (Verified 11/04/19 11:05) - Discharge Instructions Activity:: Activity as Tolerated Nourishment:: Heart Healthy Diet - Follow up Plan Referrals: Mikhail Greer MD [Active] - 7 Days (CALL TO SCHEDULE AN APPOINTMENT.) Elyse Tam MD [Primary Care Provider] - 7 Days (CALL TO SCHEDULE AN APPOINTMENT.) Disposition: HOME
[2020-01-16] MEDS ORDERED: Furosemide 40 MG TAB PO SCH (07:30)
[2020-01-16] MEDS ORDERED: Amiodarone 200 MG TAB PO SCH (09:00)
[2020-01-16] MEDS ORDERED: Lisinopril 20 MG TAB PO SCH (09:00)
== END 2020-01-15 17:44 | disposition home or self-care (01) ==
LOC: ERS 14:06 → 2SW 18:27
PROVIDERS: ADMIT Student in an Organized Health Care Education/Training Program; ATTEND Student in an Organized Health Care Education/Training Program
DX: R07.9 Chest pain, unspecified (principal); E03.9 Hypothyroidism, unspecified; E11.9 Type 2 diabetes mellitus without complications; E78.5 Hyperlipidemia, unspecified; I11.0 Hypertensive heart disease with heart failure; I50.40 Unspecified combined systolic (congestive) and diastolic (congestive) heart failure; I25.10 Atherosclerotic heart disease of native coronary artery without angina pectoris; I08.0 Rheumatic disorders of both mitral and aortic valves; I44.0 Atrioventricular block, first degree; J98.11 Atelectasis; F17.210 Nicotine dependence, cigarettes, uncomplicated; Z79.82 Long term (current) use of aspirin; Z79.84 Long term (current) use of oral hypoglycemic drugs; Z79.899 Other long term (current) drug therapy; Z20.828 Contact with and (suspected) exposure to other viral communicable diseases
CPT/HCPCS: 71045; 71275; 80048; 80053; 81003; 82962 ×2; 83036; 83880; 84484 ×2; 85025 ×2; 85379; 93005; 94760; 99285; 99406; U0003; 36415; 36416; 87635; 96374; 96376; G0378; J1650; J1940

== ENCOUNTER 2020-02-01 01:26 | Inpatient (IN) | payer MEDICARE, MEDICAID ==
[2020-02-01] MEDS ORDERED: Lorazepam 2 MG/ML VIAL ONE (01:33)
[2020-02-01] MEDS ORDERED: Nitroglycerin 50 MG/250 ML BOT 250 ML ONE (01:58)
[2020-02-01 02:01] LABS: Actual Bicarbonate (HCO3a) 20.4 mEq/L (22-28); Analyzer IN Cardio ER; Base Excess (BEa) -8.7 mEq/L (-2.0 to +3.0); Calcium, Ionized (arterial) 1.15 mmol/L (1.12-1.30); Carboxyhemoglobin (COHb) 0.6 gm% (0.0-3.0); O2 Tension (PaO2), arterial 88.5 mmHg (> 70.0); Potassium - ABG Lab 4.09 mmol/L (3.70-5.30)
[2020-02-01 02:02] LABS: Puncture Site RRA; pH, Arterial 7.16 (7.35-7.45)
[2020-02-01 02:25] LABS: Band 2 % (5-11); Eosinophils 6 % (0-10); Hemoglobin 14.1 g/dL (12.0-16.0); Lymphocytes 54 % (21-51); MDiff Complete? YES; Mean Corpuscular HGB CONC 32.2 g/dL (32.0-36.0); Mean Corpuscular Hemoglobin 33.6 pg (27.0-31.0); Mean Platelet Volume 8.7 fL (7.4-10.4); Monocytes 10 % (0-10); Neutrophil 28 % (42-75); Platelet Count 209 thou/uL (130-400); RBC Distribution Width 13.4 % (11.5-14.5); Red Blood Cell (RBC) Count 4.18 mill/uL (4.20-5.40); White Blood Cell (WBC) Count 10.7 thou/uL (4.8-10.8)
[2020-02-01 02:27] LABS: ALT (SGPT) 41 U/L (8-55); AST (SGOT) 49 U/L (5-34); Albumin 4.3 g/dL (3.4-4.8); Alkaline Phosphatase 52 U/L (40-110); Anion Gap 21 mmol/L (10-20); BUN (Urea Nitrogen) 14 mg/dL (9.8-20.1); Bilirubin, Total 0.3 mg/dL (0.2-1.2); Calc. Creatinine Clearance 0 mL/min (70-130); Calcium 8.8 mg/dL (7.8-10.44); Carbon Dioxide 21 mmol/L (23-31); Chloride 107 mmol/L (98-107); Estimated GFR-MDRD 37; Globulin 3.2 g/dL (2.4-3.5); Glucose 290 mg/dL (83-110); Potassium 4.7 mmol/L (3.5-5.1); Protein, Total 7.5 g/dL (6.0-8.3); Sodium 144 mmol/L (136-145)
[2020-02-01] MEDS ORDERED: Nitroglycerin 2% Ointment 1 INCH/1 GM Packet ONE (02:56)
[2020-02-01] MEDS ORDERED: Ondansetron PF 4 MG/2 ML Vial IVP PRN (04:14)
[2020-02-01] MEDS ORDERED: Acetaminophen 325 MG TAB PO PRN (04:14)
[2020-02-01] MEDS ORDERED: Acetaminophen 650 MG Suppository PR PRN (04:14)
[2020-02-01] MEDS ORDERED: HYDROcodone/Acetaminophen 5/325 mg Tablet PO PRN (04:14)
[2020-02-01] MEDS ORDERED: Guaifenesin DM 100-10/5 ML UDCUP PO PRN (04:14)
[2020-02-01] MEDS ORDERED: Ondansetron ODT 4 MG TAB PO PRN (04:14)
[2020-02-01] MEDS ORDERED: Nitroglycerin 50 MG/250 ML BOT 250 ML IVPB SCH (04:15)
[2020-02-01] MEDS ORDERED: HumaLOG 300 UNITS/3 ML VIAL SC PRN (04:25)
[2020-02-01] MEDS ORDERED: Dextrose 50% Abboject 50 ML SYRINGE SLOW IVP PRN ×2 (04:25)
[2020-02-01] MEDS ORDERED: Dextrose 5% in Water 1,000 ML IV PRN (04:25)
--- NOTE | 2020-02-01 04:30 | PDOC.HHP ---
Hospitalist HPI - History of Present Illness dyspnea History of Present Illness: Case of an 74y/o female with pmhx of DM, P atrial fib, hypothyrodism, hld, gi bleeding, cad, htn and combined heart failure who comes to hospital due to dyspnea. apparently patient was on her usual state of health until yesterday when she woke up gasping for air. Reports worsening leg edema b/l. Denies any chest pain, palpitation refers or diaphoresis. apparently around 2 weeks ago one of her doctors decreased her lasix to half of what she was taking. Hospitalist ROS - Review of Systems All other systems reviewed; all pertinent +/- noted in HPI/Subj Hospitalist History - Past Medical History Endocrine: reports: Diabetes - Past Surgical History Past Surgical History: reports: Hysterectomy - Social History Smoking Status: Current every day smoker Alcohol: reports: None Drugs: reports: none - Exam General Appearance: ill appearing Eye: PERRL, anicteric sclera ENT: normocephalic atraumatic, no oropharyngeal lesions Neck: supple, symmetric, no thyromegaly Heart: RRR, no murmur, no gallops, no rubs Respiratory: no wheezes, no ronchi, rales Gastrointestinal: soft, non-tender, non-distended, normal bowel sounds Extremities: no cyanosis, 2+ LE edema Skin: normal turgor, no lesions, no rashes Neurological: cranial nerve grossly intact, normal sensation to touch Musculoskeletal: normal tone, normal strength, no muscle wasting Psychiatric: normal affect, normal behavior, A&O x 3 Hospitalist Results - Labs Result Diagrams: 02/01/20 01:35 02/01/20 01:35 Lab results: WBC 10.7 thou/uL (4.8-10.8) 02/01/20 01:35 Hgb 14.1 g/dL (12.0-16.0) 02/01/20 01:35 Hct 43.6 % (36.0-47.0) 02/01/20 01:35 MCV 104.0 fL (78.0-98.0) H 02/01/20 01:35 Plt Count 209 thou/uL (130-400) 02/01/20 01:35 Band Neuts % (Manual) 2 % (5-11) L 02/01/20 01:35 ABG pH 7.16 (7.35-7.45) L* 02/01/20 01:45 ABG pCO2 58.0 mmHg (35.0-45.0) H 02/01/20 01:45 ABG pO2 88.5 mmHg (> 70.0) H 02/01/20 01:45 Sodium 144 mmol/L (136-145) 02/01/20 01:35 Potassium 4.7 mmol/L (3.5-5.1) 02/01/20 01:35 Chloride 107 mmol/L (98-107) 02/01/20 01:35 Carbon Dioxide 21 mmol/L (23-31) L 02/01/20 01:35 BUN 14 mg/dL (9.8-20.1) 02/01/20 01:35 Creatinine 1.62 mg/dL (0.6-1.1) H 02/01/20 01:35 Glucose 290 mg/dL (83-110) H 02/01/20 01:35 Calcium 8.8 mg/dL (7.8-10.44) 02/01/20 01:35 Total Bilirubin 0.3 mg/dL (0.2-1.2) 02/01/20 01:35 AST 49 U/L (5-34) H 02/01/20 01:35 ALT 41 U/L (8-55) 02/01/20 01:35 Alkaline Phosphatase 52 U/L (40-110) 02/01/20 01:35 Troponin I 0.020 ng/mL (< 0.028) 02/01/20 01:35 B-Natriuretic Peptide 1078.9 pg/mL (0-100) H 02/01/20 01:35 Serum Total Protein 7.5 g/dL (6.0-8.3) 02/01/20 01:35 Albumin 4.3 g/dL (3.4-4.8) 02/01/20 01:35 Hospitalist H&P A/P - Problem (1) Acute respiratory failure with hypoxia and hypercarbia Code(s): J96.01 - ACUTE RESPIRATORY FAILURE WITH HYPOXIA; J96.02 - ACUTE RESPIRATORY FAILURE WITH HYPERCAPNIA Status: Acute (2) Acute on chronic combined systolic (congestive) and diastolic (congestive) heart failure Code(s): I50.43 - ACUTE ON CHRONIC COMBINED SYSTOLIC AND DIASTOLIC HRT FAIL Status: Acute (3) PREMA (acute kidney injury) Code(s): N17.9 - ACUTE KIDNEY FAILURE, UNSPECIFIED Status: Acute (4) Dyslipidemia Code(s): E78.5 - HYPERLIPIDEMIA, UNSPECIFIED Status: Chronic (5) Hypertension Code(s): I10 - ESSENTIAL (PRIMARY) HYPERTENSION Status: Chronic (6) Hypothyroidism Code(s): E03.9 - HYPOTHYROIDISM, UNSPECIFIED Status: Chronic (7) PAF (paroxysmal atrial fibrillation) Code(s): I48.0 - PAROXYSMAL ATRIAL FIBRILLATION Status: Chronic (8) Diabetes Code(s): E11.9 - TYPE 2 DIABETES MELLITUS WITHOUT COMPLICATIONS Status: Acute (9) CAD (coronary artery disease) Code(s): I25.10 - ATHSCL HEART DISEASE OF [place] CORONARY ARTERY W/O ANG PCTRS Status: Acute - Plan Plan: Case of an 74y/o female with the stated pmhx who presents with Decompensated chf acute respiratory failure hypoxic + hypercapnic - was saturating in the 80s at RA, abgs with hypercapnia - likely secondary to pulmonary edema / heart failure - on bipap - geospatial imagery intelligence analyst consulted Decompensated combined heart failure - cxr w pulmonary edema - elevated bnp - last echo w ef 30-35%, dilated LA, trace MR, mod TR, increased PAP, will repe at - continue beta alicja - will start spinorolactone - has def/ppm - lasix iv - cardio evaluation - holding romel due to prema and aggresive diuresis. consider entresto or restarting acei when more stable - on nitro drip prema - increased creatinine from previous admission - likely due to fluid overload - will start lasix iv, will likely worsen before improvement htn/cad/hypothyroidism/ P atrial fibrillation - continue home meds when more stable
[2020-02-01 04:57] LABS: Actual Bicarbonate (HCO3a) 25.1 mEq/L (22-28); Analyzer IN Cardio ER; CO2 Tension 47.4 mmHg (35.0-45.0); Calcium, Ionized (arterial) 1.15 mmol/L (1.12-1.30); Carboxyhemoglobin (COHb) 0.7 gm% (0.0-3.0); Hemoglobin (Hb) 12.5 g/dL (12.0-16.0); O2 Tension (PaO2), arterial 132.3 mmHg (> 70.0); pH, Arterial 7.34 (7.35-7.45)
[2020-02-01] MEDS ORDERED: Spironolactone 25 MG TAB PO SCH (05:00)
[2020-02-01 05:07] LABS: Puncture Site RRA
[2020-02-01 05:14] LABS: SARS-CoV-2 NAA Rapid Test Not Detected (NotDetected)
[2020-02-01] MEDS ORDERED: Furosemide 40 MG/4 ML VIAL ONE (05:34)
[2020-02-01] MEDS ORDERED: Dextrose 50% Abboject 50 ML SYRINGE ONE (06:19)
[2020-02-01] MEDS: Furosemide 40 MG/4 ML VIAL SLOW IVP SCH ×2 (08:12→14:54)
[2020-02-01] MEDS ORDERED: Aspirin 81 mg Enteric Coated Tablet PO SCH (09:00)
[2020-02-01] MEDS ORDERED: Carvedilol 6.25 MG TAB PO SCH (09:00)
[2020-02-01] MEDS ORDERED: Enoxaparin Sodium 30 MG/0.3 ML SYRINGE SC SCH (09:00)
[2020-02-01] MEDS ORDERED: HYDROcodone/Acetaminophen 10/325 mg Tablet PO PRN (09:11)
[2020-02-01] MEDS ORDERED: Aspirin 81 mg Enteric Coated Tablet ONE (09:11)
[2020-02-01] MEDS ORDERED: Enoxaparin Sodium 30 MG/0.3 ML SYRINGE ONE (09:11)
--- NOTE | 2020-02-01 09:25 | RAD ---
CHEST 1 VIEW: Date: 02/01/2020 INDICATION: History of difficulty breathing. COMPARISON: Prior exam dated 01/14/2020. FINDINGS: There is cardiomegaly, pulmonary vascular congestion, and bilateral interstitial and air space opacit ies suspicious for edema. There are small bilateral pleural effusions. There is AICD overlying left c hest wall. No pneumothorax is evident. IMPRESSION: Findings of CHF. POS: BH
[2020-02-01] MEDS ORDERED: Carvedilol 25 MG TAB PO SCH (09:30)
[2020-02-01 12:34] VITALS: BMI 30.3
[2020-02-01] MEDS ORDERED: Amiodarone 150 MG/3 ML VIAL ONE (14:02)
--- NOTE | 2020-02-01 14:20 | PDOC.HOSPP ---
- Subjective Encounter Date: 02/01/20 Encounter Time: 13:00 Subjective: Patient seen on the floor. Somnolent. On BiPAP. Covid negative. - Objective Vital Signs & Weight: Vital Signs (12 hours) Temp Pulse Resp BP Pulse Ox 02/01/20 12:46 96 02/01/20 03:54 97.6 F 61 30 H 168/95 H Weight Weight 165 lb 12.602 oz Most Recent Monitor Data Heart Rate from ECG 60 NIBP 165/94 NIBP BP-Mean 117 Respiration from ECG 25 SpO2 91 Result Diagrams: 02/01/20 01:35 02/01/20 01:35 Additional Labs: Accuchecks 02/01/20 02/01/20 07:31 05:53 POC Glucose 117 H 70 Hospitalist ROS - Medication Medications: Active Medications Generic Name Dose Route Start Last Admin Trade Name Freq PRN Reason Stop Dose Admin Furosemide 40 mg 02/01/20 06:00 02/01/20 08:12 Furosemide 40 Mg/4 Ml Vial SLOW IVP 40 mg 0600,1400 [facility] Administration - Exam General Appearance: NAD, ill appearing General - other findings: On BiPAP Eye: PERRL ENT: normocephalic atraumatic Neck: supple Heart: RRR Respiratory: normal chest expansion, no tachypnea Gastrointestinal: soft, normal bowel sounds Neurological: no focal deficits Hosp A/P - Plan (1) Acute respiratory failure with hypoxia and hypercarbia Code(s): J96.01 - ACUTE RESPIRATORY FAILURE WITH HYPOXIA; J96.02 - ACUTE RESPIRATORY FAILURE WITH HYPERCAPNIA Status: Acute (2) Acute on chronic combined systolic (congestive) and diastolic (congestive) heart failure Code(s): I50.43 - ACUTE ON CHRONIC COMBINED SYSTOLIC AND DIASTOLIC HRT FAIL Status: Acute (3) PREMA (acute kidney injury) Code(s): N17.9 - ACUTE KIDNEY FAILURE, UNSPECIFIED Status: Acute (4) Dyslipidemia Code(s): E78.5 - HYPERLIPIDEMIA, UNSPECIFIED Status: Chronic (5) Hypertension Code(s): I10 - ESSENTIAL (PRIMARY) HYPERTENSION Status: Chronic (6) Hypothyroidism Code(s): E03.9 - HYPOTHYROIDISM, UNSPECIFIED Status: Chronic (7) PAF (paroxysmal atrial fibrillation) Code(s): I48.0 - PAROXYSMAL ATRIAL FIBRILLATION Status: Chronic (8) Diabetes Code(s): E11.9 - TYPE 2 DIABETES MELLITUS WITHOUT COMPLICATIONS Status: Acute (9) CAD (coronary artery disease) Code(s): I25.10 - ATHSCL HEART DISEASE OF [place] CORONARY ARTERY W/O ANG PCTRS Status: Acute acute respiratory failure hypoxic + hypercapnic -d/t pulmonary edema / heart failure - on bipap - solar project coordination specialist consulted Decompensated combined heart failure - cxr w pulmonary edema and elevated bnp - last echo w ef 30-35%, dilated LA, trace MR, mod TR, increased PAP, -Current echo pending - continue beta alicja and hold JOSE D inhibitor as creatinine is over 1.6 - Wean off from the nitro drip. - - lasix iv - cardio evaluation - holding jose d due to prema and IV diuresis. consider entresto or restarting acei when more stable Abnormal troponin due to metabolic mismatch type II demand ischemia. - Troponin around 0.2x3. -Continue with amiodarone Coreg and statin. PREMA - increased creatinine from previous admission - likely due to fluid overload - will start lasix iv, will likely worsen before improvement htn/cad/hypothyroidism/ P atrial fibrillation - continue home meds when more stable Hypothyroidism -Continue with home dose of levothyroxine.
--- NOTE | 2020-02-01 16:20 | CON ---
DATE OF CONSULTATION: REASON FOR CONSULTATION: Congestive heart failure. HISTORY OF PRESENT ILLNESS: Ms. Pressley is a 74-year-old woman with a past history of diastolic dysfunction. Last echo dated 03/16/2019 with LVEF 30% to 35%. She also has a component of systolic dysfunction. She has been seen and evaluated in the past by Dr. Mikhail Greer. She recently presented with increased shortness of breath. She states she has had increased use of fluids. No changes in salt. She did complain of lower extremity edema. No chest pain or pressure. She states she is currently comfortable. She has BiPAP present, but states she is not having any issues or shortness of breath. PAST MEDICAL HISTORY: Systolic dysfunction, diabetes mellitus, nonischemic cardiomyopathy. HOME MEDICATIONS: 1. Carvedilol. 2. Lisinopril. 3. Potassium. 4. Rosuvastatin. 5. Levothyroxine. 6. Aspirin. ALLERGIES: NONE. SOCIAL HISTORY: No current alcohol or tobacco use. REVIEW OF SYSTEMS: A 10-point review of systems is reviewed as above, otherwise negative. PHYSICAL EXAMINATION: GENERAL: Patient is a pleasant woman who is in no acute distress. The patient appears their stated age. VITAL SIGNS: Blood pressure 168/95, pulse 61, temperature afebrile. NEUROLOGIC: The patient is alert and oriented x3 with no focal neurologic deficits. HEENT: Sclerae without icterus. Mouth has moist mucous membranes with normal pallor. NECK: No JVD. Carotid upstroke brisk. No bruits bilaterally. LUNGS: Mild crackles noted bilaterally. BACK: No scoliosis or kyphosis. CARDIAC: Regular rate and rhythm with normal S1 and S2. No S3 or S4 noted. No significant rubs, murmurs, thrills, or gallops noted throughout the precordium. PMI is not displaced. There is no parasternal heave. ABDOMEN: Soft, nontender, nondistended. No peritoneal signs present. No hepatosplenomegaly. No abnormal striae. EXTREMITIES: Trace pitting edema. SKIN: No gross abnormalities. PERTINENT LABORATORY DATA: BNP of 1078. Troponin negative. Hemoglobin 14.1, platelet count 209. IMPRESSION: 1. Acute on chronic systolic heart failure. 2. Nonischemic cardiomyopathy. RECOMMENDATIONS: 1. Continue IV Lasix. 2. Discontinue aspirin given no previous history of CAD. 3. Continue amiodarone in addition to carvedilol. 4. Avoid JOSE D inhibitor therapy, ARB due to renal insufficiency. 5. Add hydralazine. Job ID: [id number]
[2020-02-01] MEDS: Heparin 5,000 UNITS/ML VIAL SC SCH (20:33)
[2020-02-01] MEDS: Carvedilol 25 MG TAB PO SCH (20:33)
[2020-02-02 04:07] LABS: Anion Gap 13 mmol/L (10-20); BUN (Urea Nitrogen) 15 mg/dL (9.8-20.1); Calc. Creatinine Clearance 45 mL/min (70-130); Calcium 8.5 mg/dL (7.8-10.44); Carbon Dioxide 26 mmol/L (23-31); Chloride 107 mmol/L (98-107); Estimated GFR-MDRD 49; Glucose 100 mg/dL (83-110); Magnesium 1.8 mg/dL (1.6-2.6); Potassium 3.3 mmol/L (3.5-5.1); Sodium 143 mmol/L (136-145)
[2020-02-02] MEDS: Levothyroxine Sodium 100 MCG TAB PO SCH (06:07)
[2020-02-02] MEDS: Furosemide 40 MG/4 ML VIAL SLOW IVP SCH ×2 (06:07→15:27)
[2020-02-02] MEDS: Amiodarone 200 MG TAB PO SCH (08:42)
[2020-02-02] MEDS: cloNIDine 0.1 MG TAB PO SCH (08:42)
[2020-02-02] MEDS: Rosuvastatin 20 MG TAB PO SCH (08:43)
[2020-02-02] MEDS: Ezetimibe 10 MG TAB PO SCH (08:43)
[2020-02-02] MEDS: Carvedilol 25 MG TAB PO SCH ×2 (08:43→20:09)
[2020-02-02] MEDS: Heparin 5,000 UNITS/ML VIAL SC SCH ×2 (08:43→20:10)
[2020-02-02] MEDS ORDERED: Aspirin 325 mg Enteric Coated Tablet PO SCH (09:00)
[2020-02-02] MEDS: hydrALAZINE 25 MG TAB PO SCH ×3 (10:52→20:09)
--- NOTE | 2020-02-02 14:38 | PDOC.CPN ---
- Subjective Date: 02/02/20 Time: 14:22 Interval history: Doing much better today No complaints SOB much better overall Off Bipap - Objective Allergies/Adverse Reactions: Allergies Allergy/AdvReac Type Severity Reaction Status Date / Time No Known Allergies Allergy Verified 11/04/19 11:05 Visit Medications: Current Medications Acetaminophen (Acetaminophen 325 Mg Tab) 650 mg PO Q4H PRN PRN Reason: Headache/Fever/Mild Pain (1-3) Acetaminophen (Acetaminophen 650 Mg Suppository) 650 mg NM Q4H PRN PRN Reason: Headache/Fever/Mild Pain (1-3) Hydrocodone Bitart/Acetaminophen (Hydrocodone/Acetaminophen 5/325 Mg Tablet) 1 tab PO Q4H PRN PRN Reason: Moderate Pain (4-6) Hydrocodone Bitart/Acetaminophen (Hydrocodone/Acetaminophen 10/325 Mg Tablet) 1 tab PO BIDPRN PRN PRN Reason: Pain Amiodarone HCl (Amiodarone 200 Mg Tab) 200 mg PO DAILY [facility] Last Admin: 02/02/20 08:42 Dose: 200 mg Documented by: Carvedilol (Carvedilol 25 Mg Tab) 25 mg PO BID [facility] Last Admin: 02/02/20 08:43 Dose: 25 mg Documented by: Clonidine (Clonidine 0.1 Mg Tab) 0.1 mg PO DAILY [facility] Last Admin: 02/02/20 08:42 Dose: 0.1 mg Documented by: Dextrose/Water (Dextrose 50% Abboject 50 Ml Syringe) 25 gm SLOW IVP PRN PRN PRN Reason: Hypoglycemia Ezetimibe (Ezetimibe 10 Mg Tab) 10 mg PO DAILY [facility] Last Admin: 02/02/20 08:43 Dose: 10 mg Documented by: Furosemide (Furosemide 40 Mg/4 Ml Vial) 40 mg SLOW IVP 0600,1400 [facility] Last Admin: 02/02/20 06:07 Dose: 40 mg Documented by: Glucagon (Glucagon 1 Mg/Ml Vial) 1 mg IM PRN PRN PRN Reason: Hypoglycemia Guaifenesin/Dextromethorphan (Guaifenesin Dm 100-10/5 Ml Udcup) 15 ml PO Q4H PRN PRN Reason: Cough Heparin Sodium (Porcine) (Heparin 5,000 Units/Ml Vial) 5,000 units SC BID [facility] Last Admin: 02/02/20 08:43 Dose: Not Given Documented by: Hydralazine HCl (Hydralazine 25 Mg Tab) 25 mg PO TID [facility] Last Admin: 02/02/20 10:52 Dose: 25 mg Documented by: Nitroglycerin/Dextrose (Nitroglycerin 50 Mg/250 Ml Bot) 250 mls @ 0 mls/hr IVPB INF [facility]; Protocol Dextrose/Water (D5w) 1,000 mls @ 0 mls/hr IV .Q0M PRN PRN Reason: Hypoglycemia Insulin Human Lispro (Humalog 300 Units/3 Ml Vial) 0 units SC .MILD SLIDING SCALE PRN PRN Reason: Mild Correctional Scale Levothyroxine Sodium (Levothyroxine Sodium 100 Mcg Tab) 100 mcg PO 0600 [facility] Last Admin: 02/02/20 06:07 Dose: 100 mcg Documented by: Ondansetron HCl (Ondansetron Odt 4 Mg Tab) 4 mg PO Q6H PRN PRN Reason: Nausea/Vomiting Ondansetron HCl (Ondansetron Pf 4 Mg/2 Ml Vial) 4 mg IVP Q6H PRN PRN Reason: Nausea/Vomiting Rosuvastatin Calcium (Rosuvastatin 20 Mg Tab) 40 mg PO DAILY [facility] Last Admin: 02/02/20 08:43 Dose: 40 mg Documented by: Vital Signs & Weight: Vital Signs Temp Pulse Pulse BP BP BP Pulse Ox 02/02/20 11:13 98.8 F 02/02/20 10:53 67 76 150/93 H 157/82 H 02/02/20 10:52 157/82 H 02/02/20 07:09 98.2 F 02/02/20 05:00 98.0 F 02/02/20 03:49 98 Pulse Ox Pulse Ox 02/02/20 11:13 02/02/20 10:53 100 96 02/02/20 10:52 02/02/20 07:09 02/02/20 05:00 02/02/20 03:49 Weight 163 lb 2.273 oz - Physical Exam General: alert & oriented x3 Cardiac: irregularly regular Lungs: normal exam Neuro: grossly intact - Labs Result Diagrams: 02/01/20 01:35 02/02/20 03:12 Troponin/CKMB Troponin I 0.020 ng/mL (< 0.028) 02/01/20 09:38 - Assessment/Plan Assessment/Plan: CHF exhacerbationm Afib NICM Pt not felt to ba appropriate candidate for ACT in past given h/o GI bleed on xarelto Limit fluids and sodium diuresis consider entresto
[2020-02-02] MEDS ORDERED: Potassium Citrate 10 MEQ TAB PO SCH (15:15)
--- NOTE | 2020-02-02 15:16 | PDOC.HOSPP ---
- Subjective Encounter Date: 02/02/20 Encounter Time: 10:10 Subjective: Patient doing well she is off BiPAP her blood pressure is better Covid negative. Will transfer to telemetry bed. Patient has no complaint. - Objective Vital Signs & Weight: Vital Signs (12 hours) Temp Pulse Pulse BP BP BP Pulse Ox 02/02/20 11:13 98.8 F 02/02/20 10:53 67 76 150/93 H 157/82 H 02/02/20 10:52 157/82 H 02/02/20 07:09 98.2 F 02/02/20 05:00 98.0 F 02/02/20 03:49 98 Pulse Ox Pulse Ox 02/02/20 11:13 02/02/20 10:53 100 96 02/02/20 10:52 02/02/20 07:09 02/02/20 05:00 02/02/20 03:49 Weight Weight 163 lb 2.273 oz Most Recent Monitor Data Heart Rate from ECG 60 NIBP 145/81 NIBP BP-Mean 102 Respiration from ECG 24 SpO2 95 I&O: 02/01/20 02/02/20 02/03/20 06:59 06:59 06:59 Intake Total 480 Output Total 60 800 Balance 420 -800 Result Diagrams: 02/01/20 01:35 02/02/20 03:12 Additional Labs: Accuchecks 02/02/20 02/02/20 12:25 00:38 POC Glucose 98 116 H Hospitalist ROS - Medication Medications: Active Medications Generic Name Dose Route Start Last Admin Trade Name Lucasq PRN Reason Stop Dose Admin Amiodarone HCl 200 mg 02/02/20 09:00 02/02/20 08:42 Amiodarone 200 Mg Tab PO 200 mg DAILY [facility] Administration Carvedilol 25 mg 02/01/20 21:00 02/02/20 08:43 Carvedilol 25 Mg Tab PO 25 mg BID [facility] Administration Clonidine 0.1 mg 02/02/20 09:00 02/02/20 08:42 Clonidine 0.1 Mg Tab PO 0.1 mg DAILY [facility] Administration Ezetimibe 10 mg 02/02/20 09:00 02/02/20 08:43 Ezetimibe 10 Mg Tab PO 10 mg DAILY [facility] Administration Furosemide 40 mg 02/01/20 06:00 11/15/20 06:07 Furosemide 40 Mg/4 Ml Vial SLOW IVP 40 mg 0600,1400 [facility] Administration Heparin Sodium (Porcine) 5,000 units 02/01/20 21:00 02/02/20 08:43 Heparin 5,000 Units/Ml Vial SC Not Given BID [facility] Hydralazine HCl 25 mg 02/02/20 09:00 02/02/20 10:52 Hydralazine 25 Mg Tab PO 25 mg TID [facility] Administration Levothyroxine Sodium 100 mcg 02/02/20 06:00 02/02/20 06:07 Levothyroxine Sodium 100 Mcg Tab PO 100 mcg 0600 [facility] Administration Rosuvastatin Calcium 40 mg 02/02/20 09:00 02/02/20 08:43 Rosuvastatin 20 Mg Tab PO 40 mg DAILY [facility] Administration - Exam General Appearance: NAD, awake alert Eye: PERRL ENT: normocephalic atraumatic Neck: supple Heart: RRR, normal peripheral pulses Respiratory: CTAB, normal chest expansion Gastrointestinal: soft, normal bowel sounds Neurological: no focal deficits Psychiatric: A&O x 3 Hosp A/P - Plan (1) Acute respiratory failure with hypoxia and hypercarbia Code(s): J96.01 - ACUTE RESPIRATORY FAILURE WITH HYPOXIA; J96.02 - ACUTE RESPIRATORY FAILURE WITH HYPERCAPNIA Status: Acute (2) Acute on chronic combined systolic (congestive) and diastolic (congestive) heart failure Code(s): I50.43 - ACUTE ON CHRONIC COMBINED SYSTOLIC AND DIASTOLIC HRT FAIL Status: Acute (3) PREMA (acute kidney injury) Code(s): N17.9 - ACUTE KIDNEY FAILURE, UNSPECIFIED Status: Acute (4) Dyslipidemia Code(s): E78.5 - HYPERLIPIDEMIA, UNSPECIFIED Status: Chronic (5) Hypertension Code(s): I10 - ESSENTIAL (PRIMARY) HYPERTENSION Status: Chronic (6) Hypothyroidism Code(s): E03.9 - HYPOTHYROIDISM, UNSPECIFIED Status: Chronic (7) PAF (paroxysmal atrial fibrillation) Code(s): I48.0 - PAROXYSMAL ATRIAL FIBRILLATION Status: Chronic (8) Diabetes Code(s): E11.9 - TYPE 2 DIABETES MELLITUS WITHOUT COMPLICATIONS Status: Acute (9) CAD (coronary artery disease) Code(s): I25.10 - ATHSCL HEART DISEASE OF [place] CORONARY ARTERY W/O ANG PCTRS Status: Acute acute respiratory failure hypoxic + hypercapnic -d/t pulmonary edema / heart failure - on bipap - claims representative consulted Decompensated combined heart failure - cxr w pulmonary edema and elevated bnp - last echo w ef 30-35%, dilated LA, trace MR, mod TR, increased PAP, -Current echo ---EF of 40% --severe mitral regurgitation moderate tricuspid regurgitation - continue beta alicja and hold JOSE D inhibitor as creatinine is over 1.6 - Wean off from the nitro drip. - - lasix iv - cardio evaluation - holding jose d due to prema and IV diuresis. consider entresto or restarting acei when more stable Abnormal troponin due to metabolic mismatch type II demand ischemia. - Troponin around 0.2x3. -Continue with amiodarone Coreg and statin. PREMA - increased creatinine from previous admission - likely due to fluid overload - will start lasix iv, will likely worsen before improvement htn/cad/hypothyroidism/ P atrial fibrillation - continue home meds when more stable Hypothyroidism -Continue with home dose of levothyroxine. Creatinine is improving Continue with the Lasix for now IV Physical therapy consult
[2020-02-03] MEDS: Levothyroxine Sodium 100 MCG TAB PO SCH (05:28)
[2020-02-03] MEDS: Furosemide 40 MG/4 ML VIAL SLOW IVP SCH ×2 (05:28→14:28)
[2020-02-03 06:01] LABS: Anion Gap 12 mmol/L (10-20); BUN (Urea Nitrogen) 22 mg/dL (9.8-20.1); Calc. Creatinine Clearance 34 mL/min (70-130); Carbon Dioxide 30 mmol/L (23-31); Chloride 105 mmol/L (98-107); Estimated GFR-MDRD 36; Glucose 119 mg/dL (83-110); Potassium 3.9 mmol/L (3.5-5.1); Sodium 143 mmol/L (136-145)
[2020-02-03] MEDS ORDERED: hydrALAZINE 25 MG TAB PO SCH (08:04)
--- NOTE | 2020-02-03 08:08 | PDOC.HOSPP ---
- Subjective Encounter Date: 02/03/20 Encounter Time: 10:30 Subjective: Patient without complaints. No SOB this morning. No chest pain. - Objective Vital Signs & Weight: Vital Signs (12 hours) Temp Pulse Resp BP BP BP Pulse Ox 02/03/20 07:48 97.8 F 68 16 163/101 H 98 02/03/20 05:36 97.9 F 60 20 185/101 H 99 02/03/20 00:13 98.1 F 74 20 176/94 H 100 02/03/20 00:01 97.3 F L 02/02/20 20:09 140/76 Weight Weight 164 lb 3.91 oz Most Recent Monitor Data Heart Rate from ECG 60 NIBP 153/89 NIBP BP-Mean 110 Respiration from ECG 14 SpO2 91 I&O: 02/02/20 02/03/20 02/04/20 06:59 06:59 06:59 Intake Total 480 Output Total 60 1700 Balance 420 -1700 Result Diagrams: 02/01/20 01:35 02/03/20 04:41 Additional Labs: Accuchecks 02/03/20 02/03/20 02/02/20 05:41 00:06 18:40 POC Glucose 118 H 112 H 117 H 02/02/20 12:25 POC Glucose 98 Hospitalist ROS - Review of Systems Constitutional: denies: fever Respiratory: denies: cough, shortness of breath Cardiovascular: denies: chest pain, palpitations Gastrointestinal: denies: nausea, vomiting, abdominal pain - Medication Medications: Active Medications Generic Name Dose Route Start Last Admin Trade Name Freq PRN Reason Stop Dose Admin Amiodarone HCl 200 mg 02/02/20 09:00 02/02/20 08:42 Amiodarone 200 Mg Tab PO 200 mg DAILY [facility] Administration Carvedilol 25 mg 02/01/20 21:00 02/02/20 20:09 Carvedilol 25 Mg Tab PO 25 mg BID [facility] Administration Clonidine 0.1 mg 02/02/20 09:00 02/02/20 08:42 Clonidine 0.1 Mg Tab PO 0.1 mg DAILY [facility] Administration Ezetimibe 10 mg 02/02/20 09:00 02/02/20 08:43 Ezetimibe 10 Mg Tab PO 10 mg DAILY [facility] Administration Furosemide 40 mg 02/01/20 06:00 02/03/20 05:28 Furosemide 40 Mg/4 Ml Vial SLOW IVP 40 mg 0600,1400 [facility] Administration Heparin Sodium (Porcine) 5,000 units 02/01/20 21:00 02/02/20 20:10 Heparin 5,000 Units/Ml Vial SC Not Given BID [facility] Levothyroxine Sodium 100 mcg 02/02/20 06:00 02/03/20 05:28 Levothyroxine Sodium 100 Mcg Tab PO 100 mcg 0600 [facility] Administration Rosuvastatin Calcium 40 mg 02/02/20 09:00 02/02/20 08:43 Rosuvastatin 20 Mg Tab PO 40 mg DAILY [facility] Administration - Exam General Appearance: NAD, awake alert ENT: moist mucosa Heart: RRR, no murmur, no gallops, no rubs Respiratory: CTAB, no wheezes, no rales, no ronchi Gastrointestinal: soft, non-tender, non-distended, normal bowel sounds Psychiatric: normal affect, normal behavior Hosp A/P (1) Acute respiratory failure with hypoxia and hypercarbia Code(s): J96.01 - ACUTE RESPIRATORY FAILURE WITH HYPOXIA; J96.02 - ACUTE RESPIRATORY FAILURE WITH HYPERCAPNIA Status: Acute (2) Acute on chronic combined systolic (congestive) and diastolic (congestive) heart failure Code(s): I50.43 - ACUTE ON CHRONIC COMBINED SYSTOLIC AND DIASTOLIC HRT FAIL Status: Acute (3) Acute renal failure superimposed on stage 3 chronic kidney disease Code(s): N17.9 - ACUTE KIDNEY FAILURE, UNSPECIFIED; N18.30 - CHRONIC KIDNEY DISEASE, STAGE 3 UNSPECIFIED Status: Acute (4) Diabetes type 2, controlled Code(s): E11.9 - TYPE 2 DIABETES MELLITUS WITHOUT COMPLICATIONS Status: Chronic Qualifiers: Diabetes mellitus joint terminal attack controller insulin use: without senior living use (5) Dyslipidemia Code(s): E78.5 - HYPERLIPIDEMIA, UNSPECIFIED Status: Chronic (6) Hypertension Code(s): I10 - ESSENTIAL (PRIMARY) HYPERTENSION Status: Chronic (7) Hypothyroidism Code(s): E03.9 - HYPOTHYROIDISM, UNSPECIFIED Status: Chronic (8) Moderate aortic regurgitation Code(s): I35.1 - NONRHEUMATIC AORTIC (VALVE) INSUFFICIENCY Status: Chronic (9) Moderate mitral regurgitation Code(s): I34.0 - NONRHEUMATIC MITRAL (VALVE) INSUFFICIENCY Status: Chronic (10) PAF (paroxysmal atrial fibrillation) Code(s): I48.0 - PAROXYSMAL ATRIAL FIBRILLATION Status: Chronic - Plan acute respiratory failure hypoxic + hypercapnic -d/t pulmonary edema / heart failure - off bipap, transfered to telemetry Decompensated combined heart failure- non-ischemic per cardiology so no aspirin - cxr w pulmonary edema and elevated bnp - last echo w ef 30-35%, dilated LA, trace MR, mod TR, increased PAP, -Current echo ---EF of 40% --severe mitral regurgitation moderate tricuspid regurgitation - continue beta alicja, restart JOSE D-I (or entresto if desired by cardiology) - Weaned off from the nitro drip. - lasix iv BID - cardiology consulted and following Abnormal troponin due to metabolic mismatch type II demand ischemia. - Troponin around 0.2x3. -Continue with amiodarone Coreg and statin. PREMA - increased creatinine from previous admission, but near baseline - likely due to fluid overload - fluctuating htn/cad/hypothyroidism/ P atrial fibrillation - resuming home meds, hydralazine added for uncontrolled HTN Hypothyroidism -Continue with home dose of levothyroxine. Creatinine is improving Continue with the Lasix for now IV Physical therapy consult
[2020-02-03] MEDS ORDERED: Lisinopril 20 MG TAB PO SCH (09:00)
[2020-02-03] MEDS: Rosuvastatin 20 MG TAB PO SCH (09:38)
[2020-02-03] MEDS: Ezetimibe 10 MG TAB PO SCH (09:39)
[2020-02-03] MEDS: cloNIDine 0.1 MG TAB PO SCH (09:39)
[2020-02-03] MEDS: Carvedilol 25 MG TAB PO SCH ×3 (09:40→21:13)
[2020-02-03] MEDS: Amiodarone 200 MG TAB PO SCH (09:40)
[2020-02-03] MEDS: hydrALAZINE 25 MG TAB PO SCH ×3 (09:41→21:12)
[2020-02-03] MEDS: Heparin 5,000 UNITS/ML VIAL SC SCH ×2 (09:45→21:12)
[2020-02-04 04:57] LABS: #Basophils 0.1 thou/uL (0.0-0.2); #Eosinphils 0.2 thou/uL (0.0-0.7); #Lymphocytes 2.6 thou/uL (1.20-3.40); #Monocytes 0.8 thou/uL (0.11-0.59); #Neutrophils 3.6 thou/uL (1.40-6.50); %Eosinophils 2.3 % (0.0-10.0); %Lymphocytes 35.3 % (21.0-51.0); %Monocytes 11.4 % (0.0-10.0); %Neutrophils 49.1 % (42.0-75.0); Hemoglobin 12.5 g/dL (12.0-16.0); Mean Corpuscular HGB CONC 32.4 g/dL (32.0-36.0); Mean Platelet Volume 7.7 fL (7.4-10.4); Platelet Count 222 thou/uL (130-400); RBC Distribution Width 13.1 % (11.5-14.5); White Blood Cell (WBC) Count 7.3 thou/uL (4.8-10.8)
[2020-02-04 05:23] LABS: Anion Gap 15 mmol/L (10-20); BUN (Urea Nitrogen) 20 mg/dL (9.8-20.1); Calc. Creatinine Clearance 44 mL/min (70-130); Calcium 9.2 mg/dL (7.8-10.44); Carbon Dioxide 27 mmol/L (23-31); Chloride 102 mmol/L (98-107); Estimated GFR-MDRD 48; Glucose 113 mg/dL (83-110); Potassium 3.6 mmol/L (3.5-5.1); Sodium 140 mmol/L (136-145)
[2020-02-04] MEDS: Levothyroxine Sodium 100 MCG TAB PO SCH (05:33)
[2020-02-04] MEDS: Furosemide 40 MG/4 ML VIAL SLOW IVP SCH ×2 (05:33→15:03)
--- NOTE | 2020-02-04 07:26 | PDOC.HOSPP ---
- Subjective Encounter Date: 02/04/20 Encounter Time: 09:00 Subjective: Patient without complaints. No SOB. No cough. No chest pain. Eager to go home. - Objective Vital Signs & Weight: Vital Signs (12 hours) Temp Pulse Resp BP BP BP Pulse Ox 02/04/20 05:20 98.0 F 61 18 167/98 H 95 02/03/20 23:29 97.9 F 66 20 167/91 H 93 L 02/03/20 21:14 97 02/03/20 19:58 97.8 F 61 18 131/75 99 Weight Weight 170 lb 10.205 oz Most Recent Monitor Data Heart Rate from ECG 60 NIBP 153/89 NIBP BP-Mean 110 Respiration from ECG 14 SpO2 91 I&O: 02/03/20 02/04/20 02/05/20 06:59 06:59 06:59 Intake Total 720 Output Total 1700 1150 Balance -1700 -430 Result Diagrams: 02/04/20 04:36 02/04/20 04:36 Additional Labs: Accuchecks 02/04/20 02/03/20 02/03/20 05:44 20:07 16:31 POC Glucose 104 H 146 H 145 H 02/03/20 02/02/20 02/01/20 14:22 06:06 19:08 POC Glucose 146 H 110 H 162 H Hospitalist ROS - Review of Systems Constitutional: denies: fever, chills Respiratory: denies: cough, shortness of breath Cardiovascular: denies: chest pain, palpitations Gastrointestinal: denies: nausea, vomiting, abdominal pain - Medication Medications: Active Medications Generic Name Dose Route Start Last Admin Trade Name [place] PRN Reason Stop Dose Admin Amiodarone HCl 200 mg 02/02/20 09:00 02/03/20 09:40 Amiodarone 200 Mg Tab PO 200 mg DAILY [facility] Administration Carvedilol 25 mg 02/03/20 15:00 02/03/20 21:13 Carvedilol 25 Mg Tab PO 25 mg TID [facility] Administration Clonidine 0.1 mg 02/02/20 09:00 02/03/20 09:39 Clonidine 0.1 Mg Tab PO 0.1 mg DAILY [facility] Administration Ezetimibe 10 mg 02/02/20 09:00 02/03/20 09:39 Ezetimibe 10 Mg Tab PO 10 mg DAILY [facility] Administration Furosemide 40 mg 02/01/20 06:00 02/04/20 05:33 Furosemide 40 Mg/4 Ml Vial SLOW IVP 40 mg 0600,1400 [facility] Administration Heparin Sodium (Porcine) 5,000 units 02/01/20 21:00 02/03/20 21:12 Heparin 5,000 Units/Ml Vial SC Not Given BID [facility] Hydralazine HCl 25 mg 02/03/20 09:00 02/03/20 21:12 Hydralazine 25 Mg Tab PO 25 mg TID [facility] Administration Levothyroxine Sodium 100 mcg 02/02/20 06:00 02/04/20 05:33 Levothyroxine Sodium 100 Mcg Tab PO 100 mcg 0600 [facility] Administration Rosuvastatin Calcium 40 mg 02/02/20 09:00 02/03/20 09:38 Rosuvastatin 20 Mg Tab PO 40 mg DAILY [facility] Administration - Exam General Appearance: NAD, awake alert ENT: moist mucosa Heart: RRR, no murmur, no gallops, no rubs Respiratory: CTAB, no wheezes, no rales, no ronchi Gastrointestinal: soft, non-tender, non-distended, normal bowel sounds Extremities: no edema Psychiatric: normal affect, normal behavior Hosp A/P (1) Acute respiratory failure with hypoxia and hypercarbia Code(s): J96.01 - ACUTE RESPIRATORY FAILURE WITH HYPOXIA; J96.02 - ACUTE RESPIRATORY FAILURE WITH HYPERCAPNIA Status: Acute (2) Acute on chronic combined systolic (congestive) and diastolic (congestive) heart failure Code(s): I50.43 - ACUTE ON CHRONIC COMBINED SYSTOLIC AND DIASTOLIC HRT FAIL Status: Acute (3) Acute renal failure superimposed on stage 3 chronic kidney disease Code(s): N17.9 - ACUTE KIDNEY FAILURE, UNSPECIFIED; N18.30 - CHRONIC KIDNEY DISEASE, STAGE 3 UNSPECIFIED Status: Acute (4) Diabetes type 2, controlled Code(s): E11.9 - TYPE 2 DIABETES MELLITUS WITHOUT COMPLICATIONS Status: Chronic Qualifiers: Diabetes mellitus correction insulin use: without correction use (5) Dyslipidemia Code(s): E78.5 - HYPERLIPIDEMIA, UNSPECIFIED Status: Chronic (6) Hypertension Code(s): I10 - ESSENTIAL (PRIMARY) HYPERTENSION Status: Chronic (7) Hypothyroidism Code(s): E03.9 - HYPOTHYROIDISM, UNSPECIFIED Status: Chronic (8) Moderate aortic regurgitation Code(s): I35.1 - NONRHEUMATIC AORTIC (VALVE) INSUFFICIENCY Status: Chronic (9) Moderate mitral regurgitation Code(s): I34.0 - NONRHEUMATIC MITRAL (VALVE) INSUFFICIENCY Status: Chronic (10) PAF (paroxysmal atrial fibrillation) Code(s): I48.0 - PAROXYSMAL ATRIAL FIBRILLATION Status: Chronic - Plan acute respiratory failure hypoxic + hypercapnic -d/t pulmonary edema / heart failure - off bipap, transfered to telemetry - on a little [place] O2 overnight, off this morning Decompensated combined heart failure- non-ischemic per cardiology so no aspirin - cxr w pulmonary edema and elevated bnp - last echo w ef 30-35%, dilated LA, trace MR, mod TR, increased PAP, -Current echo ---EF of 40% --severe mitral regurgitation moderate tricuspid regurgitation - continue beta alicja, starting entresto per cardiology) - Weaned off from the nitro drip. - lasix iv BID with good diuresis - cardiology consulted and following Abnormal troponin due to metabolic mismatch type II demand ischemia. - Troponin around 0.2x3. -Continue with amiodarone Coreg and statin. PREMA - increased creatinine from previous admission, but near baseline - likely due to fluid overload - improved this morning htn/cad/hypothyroidism/ P atrial fibrillation - resuming home meds, hydralazine added for uncontrolled HTN Hypothyroidism -Continue with home dose of levothyroxine. Creatinine is improving Continue with the Lasix for now IV Home with home health for skilled and PT once cleared by Dr. Greer
[2020-02-04] MEDS: hydrALAZINE 25 MG TAB PO SCH (08:27)
[2020-02-04] MEDS: Ezetimibe 10 MG TAB PO SCH (08:27)
[2020-02-04] MEDS: Heparin 5,000 UNITS/ML VIAL SC SCH (08:27)
[2020-02-04] MEDS: Carvedilol 25 MG TAB PO SCH (08:28)
[2020-02-04] MEDS: Rosuvastatin 20 MG TAB PO SCH (08:28)
[2020-02-04] MEDS: Amiodarone 200 MG TAB PO SCH (08:28)
[2020-02-04] MEDS: cloNIDine 0.1 MG TAB PO SCH (08:28)
[2020-02-04 11:31] VITALS: BP 107/71; TEMP 97.9
--- NOTE | 2020-02-04 14:25 | PQF ---
CLINICAL DOCUMENTATION CLARIFICATION FORM: Dear Dr. Ayaan JEAN Date: 02/04/20 1400 Please exercise your independent, professional judgment in responding to the clarification form. Clinical indicators are provided on the bottom of this form for your review. Please check appropriate box(es): [ ] Type 1 VA (NSTEMI) [ X ] Type 2 VA (T2MI) secondary to: [ ] hypertension [ ] arrhythmia [ ] Infection [ ] severe anemia [ ] ischemic stroke [ ] renal f [ ] heart failure [ ] other [ ] Other: [ ] Takotsubo syndrome [ ] Other diagnosis [ ] Unable to determine In addition, please specify: Present on Admission (POA): [ X ] Yes [ ] No [ ] Unable to determine For continuity of documentation, please document condition throughout progress notes and discharge summary. Thank You. To be completed by CDI/Coding staff for physician review: CLINICAL INDICATORS - SIGNS / SYMPTOMS / LABS / RESULTS AND LOCATION IN EMR Abnormal Troponin due to Metabolic mismatch type II demand ischemia, - troponin around 0.2 x 3. (PN/Misami/ 01/31-02/01) Abnormal Troponin due to Metabolic mismatch type II demand ischemia, - troponin around 0.2 x 3. (PN/Jan / 02/02-) RISKS / RESULTS AND LOCATION IN EMR Hx of Hypertension, CAD, DM Hyperlipidemia ( H&P/ Mert-Robbie) 01/31 TREATMENTS / RESULTS AND LOCATION IN EMR Cardiac consult (Silverio/ 01/31) Supplemental oxygen (01/31- present) THANK YOU! CDS Signature: Blank Field Phone #: [phone] Date: 02/04/20. 7372 This is a permanent part of the Medical Record [facility]
--- NOTE | 2020-02-05 02:42 | DIS ---
DATE OF ADMISSION: 02/01/2020 DATE OF DISCHARGE: 02/04/2020 PRIMARY CARE PHYSICIAN: Dr. Elyse Tam. REASON FOR ADMISSION: Congestive heart failure exacerbation. DIAGNOSES AT DISCHARGE: 1. Acute respiratory failure with hypoxia, resolved. 2. Acute on chronic combined systolic and diastolic congestive heart failure. 3. Acute on chronic renal failure, stage 3. 4. Diabetes mellitus type 2. 5. Dyslipidemia. 6. Hypertension. 7. Hypothyroidism. 8. Moderate aortic regurgitation. 9. Moderate mitral regurgitation. 10. Paroxysmal atrial fibrillation. PROCEDURES: Echocardiogram showing an ejection fraction of 35% to 40%, moderate to severe mitral regurgitation and moderate aortic regurgitation. CONSULTATIONS: Cardiology, Dr. Sawyer for Dr. Greer. SUMMARY OF HOSPITAL COURSE: This is a 74-year-old female with a history of diabetes, atrial fibrillation, coronary artery disease, and congestive heart failure, who came in with dyspnea and worsening bilateral lower extremity edema. She was found to be in acute exacerbation of CHF. She was diuresed with good improvement in her symptoms, was eventually weaned off oxygen and was getting up well with physical therapy. Her creatinine eventually improved with the diuresis and she was started on hydralazine for persistently elevated blood pressures and then Entresto at the time of her discharge. Of note, Dr. Greer stated that the patient actually does not have a history of coronary artery disease and so he took her off aspirin. DISCHARGE MANAGEMENT: Discharged home with Home Health. ACTIVITY: As tolerated. DIET: Healthy heart low-sodium diet. THERAPY: Physical Therapy and Correction. FOLLOWUP: Follow up with Dr. Greer in [address] Tam on February 23 and with cardiac rehab as an outpatient. DISCHARGE MEDICATIONS: 1. Hydralazine 25 mg three times a day, 90 tablets dispensed. 2. Carvedilol 25 mg three times a day, 90 tablets dispensed. 3. Entresto 24/26 mg one tablet twice a day, 60 tablets dispensed. 4. Amiodarone 200 mg daily. 5. Clonidine 0.1 mg daily. 6. Zetia 10 mg daily. 7. Levothyroxine 100 mcg daily. 8. Crestor 40 mg daily. 9. Furosemide 40 mg daily. The patient is to stop her lisinopril and her metformin due to her medication adjustments and the fact that her blood sugar has actually been controlled in the hospital off medicine. TIME SPENT: Arranging the details of this discharge took 35 minutes. Job ID: [id number]
== END 2020-02-04 14:50 | disposition home health service (06) | DRG 280 ==
LOC: ERS 01:26 → ERHOLD 03:12 → IMCU/EMU 12:13 → 2SE 02-03 00:43
PROVIDERS: ADMIT Internal Medicine; ATTEND Emergency Medicine
PROC: 5A09457 Assistance with Respiratory Ventilation, 24-96 Consecutive Hours, Continuous Positive Airway Pressure (ICD-10-PCS; principal; 2020-02-01)
DX: I13.0 Hypertensive heart and chronic kidney disease with heart failure and stage 1 through stage 4 chronic kidney disease, or unspecified chronic kidney disease (principal); I21.A1 Myocardial infarction type 2; J96.01 Acute respiratory failure with hypoxia; I50.43 Acute on chronic combined systolic (congestive) and diastolic (congestive) heart failure; J96.02 Acute respiratory failure with hypercapnia; N17.9 Acute kidney failure, unspecified; I16.1 Hypertensive emergency; Z20.828 Contact with and (suspected) exposure to other viral communicable diseases; N18.30 Chronic kidney disease, stage 3 unspecified; E11.22 Type 2 diabetes mellitus with diabetic chronic kidney disease; E78.5 Hyperlipidemia, unspecified; E03.9 Hypothyroidism, unspecified; I48.0 Paroxysmal atrial fibrillation; I08.0 Rheumatic disorders of both mitral and aortic valves; I25.10 Atherosclerotic heart disease of native coronary artery without angina pectoris; F17.210 Nicotine dependence, cigarettes, uncomplicated; I42.8 Other cardiomyopathies; Z79.82 Long term (current) use of aspirin; Z79.84 Long term (current) use of oral hypoglycemic drugs; Z79.890 Hormone replacement therapy; Z79.899 Other long term (current) drug therapy; Z90.710 Acquired absence of both cervix and uterus
CPT/HCPCS: 36415; 36416; 36600; 71045; 80048; 80053; 82805; 83735; 83880; 84443; 84484; 85025; 93005; 93306; 93798; 94660; 94760; 96365; 96374; 96375; 99292; J0282; J1650; J1940; J2060; U0002

== ENCOUNTER 2020-05-12 11:20 | Observation (INO) | payer MEDICARE, MEDICAID ==
--- NOTE | 2020-05-12 11:49 | RAD ---
Exam: Chest one view HISTORY:Chest tightness and shortness of breath Comparison: 02/01/2020 FINDINGS: Pacing device: Left-sided transvenous defibrillator with lead position of the right atrium and right ventricle. Cardiac silhouette:Cardiomegaly Aorta: Elongation Pulmonary vessels: Normal Costophrenic angles: Clear LUNGS: No masses or consolidation. Pneumothorax: None Osseous abnormalities: None IMPRESSION: Cardiomegaly without evidence of congestive heart failure.
[2020-05-12 11:51] LABS: Hemoglobin 12.7 g/dL (12.0-16.0); Mean Corpuscular Hemoglobin 33.4 pg (27.0-31.0); Mean Corpuscular Volume 98.3 fL (78.0-98.0); Mean Platelet Volume 7.7 fL (7.4-10.4); Platelet Count 194 thou/uL (130-400); RBC Distribution Width 12.8 % (11.5-14.5); White Blood Cell (WBC) Count 6.1 thou/uL (4.8-10.8)
[2020-05-12 12:15] LABS: ALT (SGPT) 16 U/L (8-55); AST (SGOT) 18 U/L (5-34); Albumin 4.3 g/dL (3.4-4.8); Alkaline Phosphatase 41 U/L (40-110); Anion Gap 15 mmol/L (10-20); BUN (Urea Nitrogen) 37 mg/dL (9.8-20.1); Bilirubin, Total 0.4 mg/dL (0.2-1.2); CK (CPK) 156 U/L (29-168); Calc. Creatinine Clearance 0 mL/min (70-130); Calcium 9.5 mg/dL (7.8-10.44); Carbon Dioxide 29 mmol/L (23-31); Chloride 99 mmol/L (98-107); Globulin 3.1 g/dL (2.4-3.5); Glucose 104 mg/dL (83-110); Lipase 31 U/L (8-78); Potassium 3.3 mmol/L (3.5-5.1); Protein, Total 7.4 g/dL (5.8-8.1); Sodium 140 mmol/L (136-145)
[2020-05-12 12:21] LABS: Eosinophils 4 % (0-10); Lymphocytes 44 % (21-51); MDiff Complete? YES; Monocytes 6 % (0-10); Neutrophil 42 % (42-75); Platelet Morphology Comment Appears Adequate; Reactive Lymphocytes 1 % (0-10)
[2020-05-12 12:59] LABS: Bilirubin Negative (Negative); Blood, Urine Negative (Negative); Clarity Clear (Clear); Glucose, Urine (Dipstick) Normal (Negative); Ketone, Urine Negative (Negative); Leukocyte Negative Leu/uL (Negative); Nitrite Negative (Negative); Protein, Urine (Dipstick) Negative (Neg-Trace); Specific Gravity, Urine 1.007 (1.002-1.036); Urobilinogen Normal mg/dL (Less than 2); pH, Urine 6.5 (5.0-9.0)
[2020-05-12] MEDS ORDERED: Potassium Chloride 20 MEQ/100 ML PREMIX BAG ONE (13:59)
[2020-05-12] MEDS ORDERED: Potassium Chloride 20 MEQ TAB ONE (13:59)
[2020-05-12] MEDS ORDERED: Acetaminophen 325 MG TAB PO PRN (14:05)
[2020-05-12] MEDS ORDERED: Ondansetron PF 4 MG/2 ML Vial IVP PRN (14:05)
[2020-05-12] MEDS ORDERED: HumaLOG 300 UNITS/3 ML VIAL SC PRN (14:07)
[2020-05-12] MEDS ORDERED: Dextrose 50% Abboject 50 ML SYRINGE SLOW IVP PRN (14:07)
[2020-05-12] MEDS ORDERED: Dextrose 5% in Water 1,000 ML IV PRN (14:07)
--- NOTE | 2020-05-12 14:18 | PDOC.HHP ---
Hospitalist HPI Low blood pressure, abdominal/lower chest thightness History of Present Illness: Patient is 74-year-old female with PMH of chronic systolic CHF, paroxysmal A. fib, HTN, HLD, DM type II, hypothyroidism, CKD stage III, and history of GI bleed who presents to the ED with low blood pressure and abdominal/chest tightness. Patient states when she checked her blood pressure today it was 98/50, this was the main reason why she came to the ED. She reports she has chronic intermittent lower chest/upper abdominal (across her upper abdomen) pain for a long time and this is not new for her. She denies shortness of breath, dyspnea on exertion, or leg swelling. She also denies dizziness. ED Course: In the ED initial BP was 119/82, later it became 88/60. Patient was started on a liter of IV bolus. Labs showed elevated creatinine and D-dimer level. Allergies/Adverse Reactions: Allergy/AdvReac Type Severity Reaction Status Date / Time No Known Allergies Allergy Verified 11/04/19 11:05 Home Medications: Medication Instructions Recorded Confirmed Type Levothyroxine Sodium 100 mcg PO 0600 06/23/14 02/02/20 History Rosuvastatin Calcium [Crestor] 40 mg PO DAILY 06/23/14 02/02/20 History Furosemide [Lasix] 40 mg PO DAILY 05/13/19 02/02/20 History HYDROcodone/Acetaminophen 1 tab PO BID PRN 05/13/19 02/02/20 History [Hydrocodone-Acetamin 10-325 mg] cloNIDine HCl 1 tab PO DAILY 05/13/19 02/02/20 History Ezetimibe [Zetia] 10 mg PO DAILY 11/04/19 02/02/20 History Amiodarone [Cordarone] 200 mg PO DAILY 11/07/19 02/02/20 History Carvedilol [Coreg] 25 mg PO TID #90 tab 02/04/20 Rx Sacubitril/Valsartan [Entresto 24 1 tab PO 799,1999 #60 tab 02/04/20 Rx mg-26 mg Tablet] hydrALAZINE [Apresoline] 25 mg PO TID #90 tab 02/04/20 Rx Past History: PMH: chronic systolic CHF, paroxysmal A. fib, HTN, HLD, DM type II, hypothyroidism, CKD stage III, and remote history of GI bleed Surgical hx: Hysterectomy, pacemaker placement Family history: Mother: HTN Social history: Patient smokes 3 to 5 cigarettes/day, has been smoking for 30 years. Denies alcohol or drug use. Hospitalist Exam General Appearance: NAD, awake alert Eye: PERRL ENT: moist mucosa Neck: supple, no JVD Heart: RRR, no murmur Respiratory: CTAB, no wheezes, no tachypnea Gastrointestinal: soft, non-distended, normal bowel sounds Gastrointestinal - other findings: mild tenderness diffusely except on RUQ/epigastric area, no rebound/guardin Extremities: no edema Neurological: normal sensation to touch, no weakness Musculoskeletal: normal strength Psychiatric: A&O x 3 Hospitalist Results Result Diagrams: 05/12/20 11:41 05/12/20 11:41 Lab results: Laboratory Last Values WBC 6.1 thou/uL (4.8-10.8) 05/12/20 11:41 RBC 3.80 mill/uL (4.20-5.40) L 05/12/20 11:41 Hgb 12.7 g/dL (12.0-16.0) 05/12/20 11:41 Hct 37.3 % (36.0-47.0) 05/12/20 11:41 MCV 98.3 fL (78.0-98.0) H 05/12/20 11:41 MCH 33.4 pg (27.0-31.0) H 05/12/20 11:41 MCHC 34.0 g/dL (32.0-36.0) 05/12/20 11:41 RDW 12.8 % (11.5-14.5) 05/12/20 11:41 Plt Count 194 thou/uL (130-400) 05/12/20 11:41 MPV 7.7 fL (7.4-10.4) 05/12/20 11:41 Neutrophils % (Manual) 42 % (42-75) 05/12/20 11:41 Lymphocytes % (Manual) 44 % (21-51) 05/12/20 11:41 Reactive Lymphs % 1 % (0-10) 05/12/20 11:41 Monocytes % (Manual) 6 % (0-10) 05/12/20 11:41 Eosinophils % (Manual) 4 % (0-10) 05/12/20 11:41 Basophils % (Manual) 3 % (0-2) H 05/12/20 11:41 Lymphocytes # Not Reportable 05/12/20 11:41 Plt Morphology Comment Appears Adequate 05/12/20 11:41 D-Dimer 2.13 *mcg/mL (0.27-0.43) H 05/12/20 11:41 Sodium 140 mmol/L (136-145) 05/12/20 11:41 Potassium 3.3 mmol/L (3.5-5.1) L 05/12/20 11:41 Chloride 99 mmol/L (98-107) 05/12/20 11:41 Carbon Dioxide 29 mmol/L (23-31) 05/12/20 11:41 Anion Gap 15 mmol/L (10-20) 05/12/20 11:41 BUN 37 mg/dL (9.8-20.1) H 05/12/20 11:41 Creatinine 2.47 mg/dL (0.6-1.1) H 05/12/20 11:41 Estimated GFR (MDRD) 05/12/20 11:41 Glucose 104 mg/dL (83-110) 05/12/20 11:41 Calcium 9.5 mg/dL (7.8-10.44) 05/12/20 11:41 Total Bilirubin 0.4 mg/dL (0.2-1.2) 05/12/20 11:41 AST 18 U/L (5-34) 05/12/20 11:41 ALT 16 U/L (8-55) 05/12/20 11:41 Alkaline Phosphatase 41 U/L (40-110) 05/12/20 11:41 Creatine Kinase 156 U/L (29-168) 05/12/20 11:41 Troponin I 0.013 ng/mL (< 0.028) 05/12/20 11:41 B-Natriuretic Peptide 99.2 pg/mL (0-100) 05/12/20 11:41 Serum Total Protein 7.4 g/dL (5.8-8.1) 05/12/20 11:41 Albumin 4.3 g/dL (3.4-4.8) 05/12/20 11:41 Globulin 3.1 g/dL (2.4-3.5) 05/12/20 11:41 Albumin/Globulin Ratio 1.4 g/dL (1.2-2.2) 05/12/20 11:41 Lipase 31 U/L (8-78) 05/12/20 11:41 Urine Color Colorless (Yellow) 05/12/20 12:13 Urine Clarity Clear (Clear) 05/12/20 12:13 Urine pH 6.5 (5.0-9.0) 05/12/20 12:13 Ur Specific [place] 1.007 (1.002-1.036) 05/12/20 12:13 Urine Protein Negative mg/dL (Neg-Trace) 05/12/20 12:13 Urine Glucose (UA) Normal mg/dL (Negative) 05/12/20 12:13 Urine Ketones Negative mg/dL (Negative) 05/12/20 12:13 Urine Blood Negative (Negative) 05/12/20 12:13 Urine Nitrite Negative (Negative) 05/12/20 12:13 Urine Bilirubin Negative (Negative) 05/12/20 12:13 Urine Urobilinogen Normal mg/dL (Less than 2) 05/12/20 12:13 Ur Leukocyte Esterase Negative Riaz/uL (Negative) 05/12/20 12:13 Chest x-ray Status: image reviewed by me Additional Comments: XR Chest 1 View Portable Observe DT: MonMay 12, 2020 11:37, CXRP Exam: Chest one view HISTORY:Chest tightness and shortness of breath Comparison: 02/01/2020 FINDINGS: Pacing device: Left-sided transvenous defibrillator with lead position of the right atrium and right ventricle. Cardiac silhouette:Cardiomegaly Aorta: Elongation Pulmonary vessels: Normal Costophrenic angles: Clear LUNGS: No masses or consolidation. Pneumothorax: None Osseous abnormalities: None IMPRESSION: Cardiomegaly without evidence of congestive heart failure. Hospitalist H&P A/P (1) Hypotension Status: Acute Assessment and Plan: Patient is on Entresto, Hydralazin, Lasix and Coreg. She took all her medications this morning. She says no recent adjustment of her home medications. Plan: -hold home meds for now -Patient will likely need adjustment of her home meds (2) Acute kidney injury superimposed on CKD Code(s): N17.9 - ACUTE KIDNEY FAILURE, UNSPECIFIED; N18.9 - CHRONIC KIDNEY DISEASE, UNSPECIFIED Status: Acute Assessment and Plan: Creatinine level is above her baseline. Likely prerenal. She received 1L NS in the ED. Plan: -hold Lasix and Entresto for now -repeat lab in AM (3) Hypokalemia Code(s): E87.6 - HYPOKALEMIA Status: Acute Assessment and Plan: Plan: -monitor and replace needed -monitor Mg level and replace as needed (4) Chronic combined systolic and diastolic CHF (congestive heart failure) Code(s): I50.42 - CHRONIC COMBINED SYSTOLIC AND DIASTOLIC HRT FAIL Status: Chronic Assessment and Plan: Plan: -hold Entresto and Lasix for now due to PREMA and hypotension. (5) PAF (paroxysmal atrial fibrillation) Code(s): I48.0 - PAROXYSMAL ATRIAL FIBRILLATION Status: Chronic Assessment and Plan: rate controlled. Plan: -hold Coreg for now due to hypotension -cont Amiodarone -cont baby Aspirin (6) Diabetes type 2, controlled Code(s): E11.9 - TYPE 2 DIABETES MELLITUS WITHOUT COMPLICATIONS Status: Chronic Qualifiers: Diabetes mellitus snf insulin use: without lineworker use Assessment and Plan: Plan: -SS insulin ACHS (7) Hypothyroidism Code(s): E03.9 - HYPOTHYROIDISM, UNSPECIFIED Status: Chronic Assessment and Plan: Plan: -cont home med (8) Hypertension Code(s): I10 - ESSENTIAL (PRIMARY) HYPERTENSION Status: Chronic Assessment and Plan: Plan: -hold home meds for now due to hypertension
[2020-05-12] MEDS ORDERED: Magnesium Oxide 400 MG TAB PO SCH (14:30)
--- NOTE | 2020-05-12 15:31 | NM ---
NUCLEAR MEDICINE VENTILATION/PERFUSION SCAN: (V/Q scan) DATE: 05/12/2020 HISTORY: 74-year-old female with dyspnea and chest tightness TECHNIQUE: Xenon-133 gas not administered due to COVID 19 pandemic and concern for contamination of ventilation equipment. Technetium 99m-MAA dose: 6.0 mCi Technetium 99m-MAA was injected IV, and multiple perfusion scintigraphic images were obtained. FINDINGS: The distribution of MAA homogeneous. Photopenic defect over the left upper lung is from the generator for the AICD. There are no other perfusion defects; no evidence of pulmonary thromboembolism. IMPRESSION: Normal. No evidence of pulmonary thromboembolism.
[2020-05-12 16:26] LABS: Troponin I 0.017 ng/mL (< 0.028)
[2020-05-12 18:27] LABS: Troponin I 0.016 ng/mL (< 0.028)
[2020-05-12 19:36] LABS: SARS-CoV-2 PCR by NAA Not Detected (NotDetected)
[2020-05-12] MEDS ORDERED: Rosuvastatin 20 MG TAB PO SCH (21:00)
[2020-05-13] MEDS ORDERED: Levothyroxine Sodium 100 MCG TAB PO SCH (06:00)
[2020-05-13] MEDS ORDERED: Amiodarone 200 MG TAB PO SCH (09:00)
[2020-05-13] MEDS ORDERED: Aspirin 81 mg Enteric Coated Tablet PO SCH (09:00)
== END 2020-05-12 17:47 | disposition short-term general hospital (02) ==
LOC: ERS 11:20 → ERHOLD 13:30
PROVIDERS: ADMIT Internal Medicine; ATTEND Internal Medicine
DX: I95.9 Hypotension, unspecified (principal); R07.89 Other chest pain; I13.0 Hypertensive heart and chronic kidney disease with heart failure and stage 1 through stage 4 chronic kidney disease, or unspecified chronic kidney disease; E11.22 Type 2 diabetes mellitus with diabetic chronic kidney disease; N18.30 Chronic kidney disease, stage 3 unspecified; I50.42 Chronic combined systolic (congestive) and diastolic (congestive) heart failure; N17.9 Acute kidney failure, unspecified; I48.0 Paroxysmal atrial fibrillation; E78.5 Hyperlipidemia, unspecified; E03.9 Hypothyroidism, unspecified; E87.6 Hypokalemia; F17.210 Nicotine dependence, cigarettes, uncomplicated; Z79.899 Other long term (current) drug therapy; Z95.0 Presence of cardiac pacemaker; Z20.822 Contact with and (suspected) exposure to COVID-19
CPT/HCPCS: 71045; 78451; 80053; 81003; 82550; 83690; 83880; 84484 ×2; 85025; 85379; 93005; 96365; 99285; A9540; G0378; U0003; U0005; 36415; 87635; J3480

== ENCOUNTER 2020-09-07 13:59 | Outpatient (CLI) | payer MEDICARE, MEDICAID | END 2020-09-07 14:00 | disposition home or self-care (01) | LOC: BICMAMMO 13:59 | PROVIDERS: ATTEND Family Medicine | DX: Z12.31 Encounter for screening mammogram for malignant neoplasm of breast (principal); Z80.3 Family history of malignant neoplasm of breast | CPT/HCPCS: 77063; 77067 ==

== ENCOUNTER 2020-11-23 20:42 | Emergency (ER) | payer MEDICARE, MEDICAID ==
[2020-11-23] MEDS ORDERED: Meclizine HCl 25 MG TAB ONE (22:08)
[2020-11-23 22:16] LABS: #Basophils 0.1 thou/uL (0.0-0.2); #Eosinphils 0.3 thou/uL (0.0-0.7); #Lymphocytes 2.3 thou/uL (1.20-3.40); #Monocytes 0.8 thou/uL (0.11-0.59); #Neutrophils 3.4 thou/uL (1.40-6.50); %Basophils 1.2 % (0.0-1.0); %Eosinophils 4.3 % (0.0-10.0); %Monocytes 11.3 % (0.0-10.0); %Neutrophils 50.2 % (42.0-75.0); Hemoglobin 12.9 g/dL (12.0-16.0); Mean Corpuscular HGB CONC 34.5 g/dL (32.0-36.0); Mean Corpuscular Hemoglobin 34.3 pg (27.0-31.0); Mean Corpuscular Volume 99.2 fL (78.0-98.0); Mean Platelet Volume 7.7 fL (7.4-10.4); Platelet Count 255 thou/uL (130-400); RBC Distribution Width 13.2 % (11.5-14.5); Red Blood Cell (RBC) Count 3.76 mill/uL (4.20-5.40); White Blood Cell (WBC) Count 6.8 thou/uL (4.8-10.8)
[2020-11-23 22:38] LABS: ALT (SGPT) 17 U/L (8-55); AST (SGOT) 17 U/L (5-34); Albumin 4.5 g/dL (3.4-4.8); Alkaline Phosphatase 52 U/L (40-110); Anion Gap 16 mmol/L (10-20); BUN (Urea Nitrogen) 19 mg/dL (9.8-20.1); Bilirubin, Total 0.2 mg/dL (0.2-1.2); Calc. Creatinine Clearance 0 mL/min (70-130); Calcium 9.9 mg/dL (7.8-10.44); Carbon Dioxide 27 mmol/L (23-31); Chloride 101 mmol/L (98-107); Globulin 3.1 g/dL (2.4-3.5); Glucose 141 mg/dL (83-110); Potassium 4.7 mmol/L (3.5-5.1); Protein, Total 7.6 g/dL (5.8-8.1); Sodium 139 mmol/L (136-145)
== END 2020-11-23 23:44 | disposition home or self-care (01) ==
LOC: ERS 20:42
DX: R42 Dizziness and giddiness (principal); R06.02 Shortness of breath; R07.9 Chest pain, unspecified; E11.9 Type 2 diabetes mellitus without complications; I48.91 Unspecified atrial fibrillation; E03.9 Hypothyroidism, unspecified; E78.5 Hyperlipidemia, unspecified; E78.00 Pure hypercholesterolemia, unspecified; M19.90 Unspecified osteoarthritis, unspecified site; I25.10 Atherosclerotic heart disease of native coronary artery without angina pectoris; I10 Essential (primary) hypertension; F17.210 Nicotine dependence, cigarettes, uncomplicated; Z79.82 Long term (current) use of aspirin; Z79.84 Long term (current) use of oral hypoglycemic drugs; Z79.899 Other long term (current) drug therapy
CPT/HCPCS: 36415; 70450; 71045; 80053; 83880; 84484; 85025; 93005

== ENCOUNTER 2021-08-22 10:17 | Inpatient (IN) | payer MEDICARE, MEDICAID ==
[2021-08-22] MEDS ORDERED: Aspirin Chewable 81 MG TAB ONE (11:58)
[2021-08-22 12:00] LABS: #Basophils 0.1 thou/uL (0.0-0.2); #Eosinphils 0.1 thou/uL (0.0-0.7); #Lymphocytes 1.4 thou/uL (1.20-3.40); #Monocytes 0.4 thou/uL (0.11-0.59); #Neutrophils 2.3 thou/uL (1.40-6.50); %Basophils 1.9 % (0.0-1.0); %Eosinophils 2.4 % (0.0-10.0); %Lymphocytes 31.9 % (21.0-51.0); %Neutrophils 53.7 % (42.0-75.0); Hemoglobin 12.1 g/dL (12.0-16.0); Mean Corpuscular Hemoglobin 33.9 pg (27.0-31.0); Mean Platelet Volume 7.1 fL (7.4-10.4); Platelet Count 235 thou/uL (130-400); RBC Distribution Width 12.7 % (11.5-14.5); Red Blood Cell (RBC) Count 3.57 mill/uL (4.20-5.40); White Blood Cell (WBC) Count 4.4 thou/uL (4.8-10.8)
[2021-08-22 12:20] LABS: ALT (SGPT) 13 U/L (8-55); AST (SGOT) 16 U/L (5-34); Albumin 3.8 g/dL (3.4-4.8); Alkaline Phosphatase 43 U/L (40-110); Anion Gap 14 mmol/L (10-20); BUN (Urea Nitrogen) 17 mg/dL (9.8-20.1); Bilirubin, Total 0.4 mg/dL (0.2-1.2); Calc. Creatinine Clearance 0 mL/min (70-130); Calcium 8.9 mg/dL (7.8-10.44); Carbon Dioxide 25 mmol/L (23-31); Chloride 105 mmol/L (98-107); Globulin 2.7 g/dL (2.4-3.5); Glucose 95 mg/dL (83-110); Potassium 3.7 mmol/L (3.5-5.1); Protein, Total 6.5 g/dL (5.8-8.1); Sodium 140 mmol/L (136-145)
[2021-08-22] MEDS ORDERED: Furosemide 40 MG/4 ML VIAL ONE (13:11)
[2021-08-22] MEDS ORDERED: Ondansetron PF 4 MG/2 ML Vial IVP PRN (13:22)
[2021-08-22] MEDS ORDERED: Acetaminophen 650 MG Suppository PR PRN (13:22)
[2021-08-22] MEDS ORDERED: Nitroglycerin 0.4 MG TAB (25 Tab Bottle) SL PRN (13:22)
[2021-08-22] MEDS ORDERED: hydrALAZINE 20 MG/ML VIAL SLOW IVP PRN (13:22)
[2021-08-22] MEDS ORDERED: Ondansetron ODT 4 MG TAB PO PRN (13:22)
[2021-08-22] MEDS ORDERED: Acetaminophen 325 MG TAB PO PRN (13:22)
[2021-08-22] MEDS ORDERED: Senokot S 8.6-50 MG TAB PO PRN (13:22)
[2021-08-22] MEDS ORDERED: Artificial Tear Sol 15 ML BOT EA EYE PRN (13:22)
[2021-08-22] MEDS ORDERED: Calcium Carbonate 500 MG ChewTAB PO PRN (13:22)
[2021-08-22] MEDS ORDERED: Bisacodyl 5 MG TAB PO PRN (13:22)
[2021-08-22] MEDS ORDERED: Moisturizing Cream (Eucerin) 113 GM JAR TOP PRN (13:22)
[2021-08-22] MEDS ORDERED: Labetalol HCl 100 MG/20 ML VIAL SLOW IVP PRN (13:22)
[2021-08-22] MEDS ORDERED: Aspirin 325 MG TAB PO SCH (13:30)
[2021-08-22] MEDS ORDERED: Enoxaparin Sodium 30 MG/0.3 ML SYRINGE SC SCH (13:30)
[2021-08-22] MEDS ORDERED: HumaLOG 300 UNITS/3 ML VIAL SC PRN (13:36)
[2021-08-22] MEDS ORDERED: Dextrose 5% in Water 1,000 ML IV PRN (13:36)
[2021-08-22] MEDS ORDERED: Dextrose 50% Abboject 50 ML SYRINGE SLOW IVP PRN (13:36)
[2021-08-22] MEDS: Nicotine 14 MG PATCH TD SCH (15:02)
[2021-08-22 15:32] VITALS: BMI 31.8
[2021-08-22] MEDS: Furosemide 40 MG/4 ML VIAL SLOW IVP SCH (17:59)
[2021-08-23 05:58] LABS: Anion Gap 13 mmol/L (10-20); BUN (Urea Nitrogen) 19 mg/dL (9.8-20.1); Calc. Creatinine Clearance 31 mL/min (70-130); Carbon Dioxide 27 mmol/L (23-31); Chloride 104 mmol/L (98-107); Cholesterol 232 mg/dl (< 200 Desired); Glucose 102 mg/dL (83-110); HDL Cholesterol 33 mg/dL (>60 Neg Risk); LDL Cholesterol, Calculated 175 mg/dL; Potassium 3.4 mmol/L (3.5-5.1); Sodium 141 mmol/L (136-145); Triglycerides 118 mg/dL (Less than 150)
[2021-08-23] MEDS: Furosemide 40 MG/4 ML VIAL SLOW IVP SCH ×2 (06:21→18:37)
[2021-08-23] MEDS: Aspirin Chewable 81 MG TAB PO SCH (07:35)
[2021-08-23] MEDS: Enoxaparin Sodium 30 MG/0.3 ML SYRINGE SC SCH (07:36)
[2021-08-23] MEDS ORDERED: Electrolyte Replacement Protocol 1 EACH FS SCH (08:00)
[2021-08-23 08:42] LABS: Magnesium 1.8 mg/dL (1.6-2.6)
[2021-08-23] MEDS ORDERED: HYDROcodone/Acetaminophen 10/325 mg Tablet PO PRN (08:52)
[2021-08-23] MEDS ORDERED: Magnesium 2 GM/50 ML(in water) 2 GM in Premix Bag 1 BAG IVPB SCH (09:00)
[2021-08-23] MEDS ORDERED: Potassium Chloride 20 MEQ in Premix Bag 1 BAG IVPB SCH (09:00)
[2021-08-23] MEDS ORDERED: Non-Formulary Item 1 EACH (Rosuvastatin Calcium [Crestor] 40 MG Tablet) PO SCH (09:00)
[2021-08-23] MEDS ORDERED: Potassium Chloride 20 MEQ TAB PO SCH (09:15)
[2021-08-23] MEDS: Amiodarone 200 MG TAB PO SCH (09:47)
[2021-08-23] MEDS: Carvedilol 25 MG TAB PO SCH ×3 (09:48→20:32)
[2021-08-23] MEDS: Rosuvastatin 20 MG TAB PO SCH (09:48)
[2021-08-23] MEDS: Ezetimibe 10 MG TAB PO SCH (09:48)
[2021-08-23] MEDS: hydrALAZINE 25 MG TAB PO SCH ×3 (09:48→20:32)
[2021-08-23] MEDS: Nicotine 14 MG PATCH TD SCH (12:49)
[2021-08-23] MEDS ORDERED: Nicotine 14 MG PATCH TD PRN (20:04)
[2021-08-23] MEDS: Isosorbide Dinitrate 20 MG TAB PO SCH (20:32)
[2021-08-24 05:24] LABS: #Basophils 0.1 thou/uL (0.0-0.2); #Eosinphils 0.2 thou/uL (0.0-0.7); #Lymphocytes 3.2 thou/uL (1.20-3.40); #Monocytes 0.6 thou/uL (0.11-0.59); #Neutrophils 2.5 thou/uL (1.40-6.50); %Basophils 1.2 % (0.0-1.0); %Eosinophils 2.7 % (0.0-10.0); %Lymphocytes 48.2 % (21.0-51.0); %Monocytes 9.8 % (0.0-10.0); %Neutrophils 38.1 % (42.0-75.0); Hemoglobin 11.2 g/dL (12.0-16.0); Mean Corpuscular HGB CONC 33.9 g/dL (32.0-36.0); Mean Corpuscular Hemoglobin 33.7 pg (27.0-31.0); Mean Corpuscular Volume 99.5 fL (78.0-98.0); Mean Platelet Volume 6.9 fL (7.4-10.4); Platelet Count 233 thou/uL (130-400); RBC Distribution Width 12.8 % (11.5-14.5); Red Blood Cell (RBC) Count 3.34 mill/uL (4.20-5.40); White Blood Cell (WBC) Count 6.5 thou/uL (4.8-10.8)
[2021-08-24 05:48] LABS: Anion Gap 14 mmol/L (10-20); BUN (Urea Nitrogen) 22 mg/dL (9.8-20.1); Calc. Creatinine Clearance 26 mL/min (70-130); Carbon Dioxide 26 mmol/L (23-31); Chloride 102 mmol/L (98-107); Potassium 3.5 mmol/L (3.5-5.1); Sodium 138 mmol/L (136-145)
[2021-08-24 05:49] LABS: Calcium 8.5 mg/dL (7.8-10.44); Glucose 125 mg/dL (83-110); Magnesium 2.2 mg/dL (1.6-2.6)
[2021-08-24] MEDS: Furosemide 40 MG/4 ML VIAL SLOW IVP SCH (05:49)
[2021-08-24] MEDS ORDERED: Levothyroxine Sodium 100 MCG TAB PO SCH (06:00)
[2021-08-24 07:14] VITALS: TEMP 97.9
[2021-08-24] MEDS ORDERED: Potassium Chloride 20 MEQ TAB PO SCH (08:00)
[2021-08-24] MEDS: Carvedilol 25 MG TAB PO SCH (09:58)
[2021-08-24] MEDS: Rosuvastatin 20 MG TAB PO SCH (09:59)
[2021-08-24] MEDS: Amiodarone 200 MG TAB PO SCH (10:00)
[2021-08-24] MEDS: Isosorbide Dinitrate 20 MG TAB PO SCH (10:00)
[2021-08-24] MEDS: Ezetimibe 10 MG TAB PO SCH (10:01)
[2021-08-24] MEDS: Aspirin Chewable 81 MG TAB PO SCH (10:01)
[2021-08-24] MEDS: Enoxaparin Sodium 30 MG/0.3 ML SYRINGE SC SCH (10:01)
[2021-08-24] MEDS: hydrALAZINE 25 MG TAB PO SCH (10:02)
[2021-08-24 10:03] VITALS: BP 119/73
== END 2021-08-24 11:08 | disposition home or self-care (01) | DRG 291 ==
LOC: ERS 10:17 → 2SW 12:57 → OBSVTOIN 08-24 10:26
PROVIDERS: ADMIT Internal Medicine; ATTEND Internal Medicine
DX: I13.0 Hypertensive heart and chronic kidney disease with heart failure and stage 1 through stage 4 chronic kidney disease, or unspecified chronic kidney disease (principal); I50.43 Acute on chronic combined systolic (congestive) and diastolic (congestive) heart failure; I48.0 Paroxysmal atrial fibrillation; Z20.822 Contact with and (suspected) exposure to COVID-19; E78.5 Hyperlipidemia, unspecified; E11.22 Type 2 diabetes mellitus with diabetic chronic kidney disease; E03.9 Hypothyroidism, unspecified; N18.30 Chronic kidney disease, stage 3 unspecified; F17.210 Nicotine dependence, cigarettes, uncomplicated; I42.8 Other cardiomyopathies; I08.0 Rheumatic disorders of both mitral and aortic valves; D50.9 Iron deficiency anemia, unspecified; E78.00 Pure hypercholesterolemia, unspecified; M19.90 Unspecified osteoarthritis, unspecified site; I25.10 Atherosclerotic heart disease of native coronary artery without angina pectoris; Z60.2 Problems related to living alone; E87.6 Hypokalemia; E83.42 Hypomagnesemia; Z79.899 Other long term (current) drug therapy; Z95.810 Presence of automatic (implantable) cardiac defibrillator; Z90.710 Acquired absence of both cervix and uterus; Z82.49 Family history of ischemic heart disease and other diseases of the circulatory system; Z79.890 Hormone replacement therapy; Z71.6 Tobacco abuse counseling; Z98.890 Other specified postprocedural states
CPT/HCPCS: 36415; 36416; 71045; 80048; 80053; 80061; 83036; 83735; 83880; 84443; 84484; 85025; 93005; 93798; 94760; 96374; J1650; J1940; J3475; U0003; U0005

== ENCOUNTER 2021-10-12 13:50 | Outpatient (CLI) | payer MEDICARE, MEDICAID | END 2021-10-12 13:51 | disposition home or self-care (01) | LOC: BICMAMMO 13:50 | PROVIDERS: ATTEND Family Medicine | DX: Z12.31 Encounter for screening mammogram for malignant neoplasm of breast (principal); Z80.3 Family history of malignant neoplasm of breast; Z91.89 Other specified personal risk factors, not elsewhere classified | CPT/HCPCS: 77063; 77067 ==

== ENCOUNTER 2021-11-30 07:37 | Inpatient (IN) | payer MEDICARE, MEDICAID ==
[2021-11-30] MEDS ORDERED: Furosemide 40 MG/4 ML VIAL ONE (07:58)
[2021-11-30] MEDS ORDERED: Aspirin 325 MG TAB ONE (07:58)
[2021-11-30] MEDS ORDERED: Nitroglycerin 0.4 MG TAB 1 EACH ONE (07:58)
[2021-11-30 08:26] LABS: #Eosinphils 0.1 thou/uL (0.0-0.7); #Lymphocytes 1.2 thou/uL (1.20-3.40); #Monocytes 0.5 thou/uL (0.11-0.59); #Neutrophils 3.7 thou/uL (1.40-6.50); %Basophils 0.2 % (0.0-1.0); %Eosinophils 1.7 % (0.0-10.0); %Lymphocytes 22.5 % (21.0-51.0); %Monocytes 8.9 % (0.0-10.0); %Neutrophils 66.7 % (42.0-75.0); Hemoglobin 12.2 g/dL (12.0-16.0); Mean Corpuscular HGB CONC 32.7 g/dL (32.0-36.0); Mean Corpuscular Hemoglobin 32.7 pg (27.0-31.0); Mean Platelet Volume 7.6 fL (7.4-10.4); Platelet Count 289 thou/uL (130-400); RBC Distribution Width 13.9 % (11.5-14.5); Red Blood Cell (RBC) Count 3.74 mill/uL (4.20-5.40); White Blood Cell (WBC) Count 5.5 thou/uL (4.8-10.8)
[2021-11-30 08:52] LABS: ALT (SGPT) 23 U/L (8-55); AST (SGOT) 21 U/L (5-34); Albumin 4.2 g/dL (3.4-4.8); Alkaline Phosphatase 60 U/L (40-110); Anion Gap 12 mmol/L (10-20); BUN (Urea Nitrogen) 11 mg/dL (9.8-20.1); Bilirubin, Total 0.5 mg/dL (0.2-1.2); Calc. Creatinine Clearance 0 mL/min (70-130); Calcium 9.3 mg/dL (7.8-10.44); Carbon Dioxide 23 mmol/L (23-31); Chloride 108 mmol/L (98-107); Estimated GFR 44; Globulin 2.7 g/dL (2.4-3.5); Glucose 151 mg/dL (83-110); Lipase 10 U/L (8-78); Potassium 3.4 mmol/L (3.5-5.1); Protein, Total 6.9 g/dL (5.8-8.1); Sodium 140 mmol/L (136-145)
[2021-11-30 09:14] LABS: CKMB 0.9 ng/mL (0-6.6)
[2021-11-30] MEDS ORDERED: Electrolyte Replacement Protocol 1 EACH FS SCH (13:45)
[2021-11-30] MEDS ORDERED: hydrALAZINE 20 MG/ML VIAL SLOW IVP PRN (13:45)
[2021-11-30] MEDS ORDERED: HumaLOG 300 UNITS/3 ML VIAL SC PRN ×2 (13:47)
[2021-11-30] MEDS ORDERED: Dextrose 5% in Water 1,000 ML IV PRN (13:47)
[2021-11-30] MEDS ORDERED: Dextrose 50% Abboject 50 ML SYRINGE SLOW IVP PRN (13:47)
[2021-11-30] MEDS ORDERED: Nicotine 14 MG PATCH TD PRN (13:51)
[2021-11-30] MEDS ORDERED: Ondansetron ODT 4 MG TAB PO PRN (13:51)
[2021-11-30] MEDS ORDERED: Potassium Chloride 20 MEQ TAB PO SCH (14:30)
[2021-11-30 16:41] LABS: Troponin I 0.026 ng/mL (< 0.028)
[2021-11-30 18:50] VITALS: BMI 30.6
[2021-11-30 18:57] LABS: SARS-CoV-2 NAA Rapid Test Not Detected (NotDetected)
[2021-11-30 19:43] LABS: Troponin I 0.025 ng/mL (< 0.028)
[2021-11-30] MEDS: Isosorbide Dinitrate 20 MG TAB PO SCH (20:33)
[2021-11-30] MEDS: Furosemide 40 MG/4 ML VIAL SLOW IVP SCH (20:33)
[2021-11-30] MEDS: hydrALAZINE 25 MG TAB PO SCH (20:33)
[2021-11-30] MEDS: Carvedilol 25 MG TAB PO SCH (20:33)
[2021-12-01 04:53] LABS: #Basophils 0.1 thou/uL (0.0-0.2); #Eosinphils 0.1 thou/uL (0.0-0.7); #Lymphocytes 1.8 thou/uL (1.20-3.40); #Monocytes 0.7 thou/uL (0.11-0.59); #Neutrophils 2.7 thou/uL (1.40-6.50); %Basophils 1.5 % (0.0-1.0); %Eosinophils 1.8 % (0.0-10.0); %Lymphocytes 33.6 % (21.0-51.0); %Monocytes 12.2 % (0.0-10.0); %Neutrophils 50.9 % (42.0-75.0); Hemoglobin 11.7 g/dL (12.0-16.0); Mean Corpuscular HGB CONC 34.2 g/dL (32.0-36.0); Mean Corpuscular Hemoglobin 34.2 pg (27.0-31.0); Mean Corpuscular Volume 99.8 fL (78.0-98.0); Mean Platelet Volume 7.8 fL (7.4-10.4); Platelet Count 283 thou/uL (130-400); RBC Distribution Width 13.7 % (11.5-14.5); Red Blood Cell (RBC) Count 3.43 mill/uL (4.20-5.40); White Blood Cell (WBC) Count 5.3 thou/uL (4.8-10.8)
[2021-12-01 05:18] LABS: Anion Gap 14 mmol/L (10-20); BUN (Urea Nitrogen) 15 mg/dL (9.8-20.1); Calc. Creatinine Clearance 38 mL/min (70-130); Calcium 9.2 mg/dL (7.8-10.44); Carbon Dioxide 25 mmol/L (23-31); Chloride 107 mmol/L (98-107); Estimated GFR 35; Glucose 100 mg/dL (83-110); Magnesium 1.7 mg/dL (1.6-2.6); Potassium 3.3 mmol/L (3.5-5.1); Sodium 143 mmol/L (136-145)
[2021-12-01] MEDS: Levothyroxine Sodium 100 MCG TAB PO SCH (05:37)
[2021-12-01] MEDS ORDERED: Magnesium 2 GM/50 ML(in water) 2 GM in Premix Bag 1 BAG IVPB SCH (05:45)
[2021-12-01] MEDS ORDERED: Potassium Chloride 20 MEQ TAB PO SCH (05:45)
[2021-12-01] MEDS: Enoxaparin Sodium 30 MG/0.3 ML SYRINGE SC SCH (09:14)
[2021-12-01] MEDS: Acetaminophen 325 MG TAB PO PRN ×2 (09:14→20:50)
[2021-12-01] MEDS: Ezetimibe 10 MG TAB PO SCH (09:15)
[2021-12-01] MEDS: Isosorbide Dinitrate 20 MG TAB PO SCH ×3 (09:15→20:50)
[2021-12-01] MEDS: Furosemide 40 MG/4 ML VIAL SLOW IVP SCH ×2 (09:15→20:49)
[2021-12-01] MEDS: Aspirin Chewable 81 MG TAB PO SCH (09:15)
[2021-12-01] MEDS: Amiodarone 200 MG TAB PO SCH (09:15)
[2021-12-01] MEDS: Carvedilol 25 MG TAB PO SCH ×3 (09:15→20:49)
[2021-12-01] MEDS: Potassium Chloride 10 MEQ TAB PO SCH (09:15)
[2021-12-01] MEDS: Rosuvastatin 20 MG TAB PO SCH (09:15)
[2021-12-01] MEDS: hydrALAZINE 25 MG TAB PO SCH ×3 (09:15→20:49)
[2021-12-02 04:41] LABS: #Basophils 0.1 thou/uL (0.0-0.2); #Eosinphils 0.1 thou/uL (0.0-0.7); #Lymphocytes 1.9 thou/uL (1.20-3.40); #Monocytes 0.8 thou/uL (0.11-0.59); #Neutrophils 2.7 thou/uL (1.40-6.50); %Basophils 1.4 % (0.0-1.0); %Eosinophils 2.1 % (0.0-10.0); %Lymphocytes 34.6 % (21.0-51.0); %Monocytes 13.4 % (0.0-10.0); %Neutrophils 48.6 % (42.0-75.0); Hemoglobin 11.5 g/dL (12.0-16.0); Mean Corpuscular HGB CONC 33.9 g/dL (32.0-36.0); Mean Corpuscular Hemoglobin 33.9 pg (27.0-31.0); Mean Corpuscular Volume 99.9 fL (78.0-98.0); Mean Platelet Volume 7.6 fL (7.4-10.4); Platelet Count 276 thou/uL (130-400); RBC Distribution Width 13.9 % (11.5-14.5); Red Blood Cell (RBC) Count 3.41 mill/uL (4.20-5.40); White Blood Cell (WBC) Count 5.6 thou/uL (4.8-10.8)
[2021-12-02 05:11] LABS: Anion Gap 13 mmol/L (10-20); BUN (Urea Nitrogen) 16 mg/dL (9.8-20.1); Calc. Creatinine Clearance 34 mL/min (70-130); Calcium 9.1 mg/dL (7.8-10.44); Carbon Dioxide 26 mmol/L (23-31); Chloride 106 mmol/L (98-107); Cholesterol 180 mg/dl (< 200 Desired); Estimated GFR 31; Glucose 103 mg/dL (83-110); HDL Cholesterol 36 mg/dL (>60 Neg Risk); LDL Cholesterol, Calculated 125 mg/dL; Magnesium 2.1 mg/dL (1.6-2.6); Potassium 3.7 mmol/L (3.5-5.1); Sodium 141 mmol/L (136-145); Triglycerides 94 mg/dL (Less than 150)
[2021-12-02] MEDS: Levothyroxine Sodium 100 MCG TAB PO SCH (06:13)
[2021-12-02] MEDS: Potassium Chloride 10 MEQ TAB PO SCH (08:19)
[2021-12-02] MEDS: Aspirin Chewable 81 MG TAB PO SCH (08:19)
[2021-12-02] MEDS: Rosuvastatin 20 MG TAB PO SCH (08:20)
[2021-12-02] MEDS: Amiodarone 200 MG TAB PO SCH (08:20)
[2021-12-02] MEDS: hydrALAZINE 25 MG TAB PO SCH (08:20)
[2021-12-02] MEDS: Isosorbide Dinitrate 20 MG TAB PO SCH (08:20)
[2021-12-02] MEDS: Carvedilol 25 MG TAB PO SCH (08:20)
[2021-12-02] MEDS: Ezetimibe 10 MG TAB PO SCH (08:21)
[2021-12-02] MEDS: Furosemide 40 MG/4 ML VIAL SLOW IVP SCH (08:21)
[2021-12-02] MEDS: Enoxaparin Sodium 30 MG/0.3 ML SYRINGE SC SCH (08:22)
[2021-12-02] MEDS ORDERED: Non-Formulary Item 1 EACH (Omeprazole [Omeprazole] 20 MG Capsule.Dr) PO SCH (09:00)
[2021-12-02 12:26] VITALS: BP 135/72; TEMP 98
[2021-12-02] MEDS ORDERED: Furosemide 20 MG TAB PO SCH (14:00)
[2021-12-02] MEDS ORDERED: Furosemide 80 MG TAB PO SCH (14:00)
== END 2021-12-02 14:56 | disposition home or self-care (01) | DRG 291 ==
LOC: ERS 07:37 → 2NO 12:48 → OBSVTOIN 12-01 16:09
PROVIDERS: ADMIT Family Medicine; ATTEND Family Medicine
DX: I13.0 Hypertensive heart and chronic kidney disease with heart failure and stage 1 through stage 4 chronic kidney disease, or unspecified chronic kidney disease (principal); I50.43 Acute on chronic combined systolic (congestive) and diastolic (congestive) heart failure; J96.01 Acute respiratory failure with hypoxia; I16.9 Hypertensive crisis, unspecified; N17.9 Acute kidney failure, unspecified; I24.8 Other forms of acute ischemic heart disease; Z20.822 Contact with and (suspected) exposure to COVID-19; I48.0 Paroxysmal atrial fibrillation; E78.5 Hyperlipidemia, unspecified; E11.22 Type 2 diabetes mellitus with diabetic chronic kidney disease; E03.9 Hypothyroidism, unspecified; N18.30 Chronic kidney disease, stage 3 unspecified; I42.8 Other cardiomyopathies; F17.210 Nicotine dependence, cigarettes, uncomplicated; D63.1 Anemia in chronic kidney disease; I08.0 Rheumatic disorders of both mitral and aortic valves; I25.10 Atherosclerotic heart disease of native coronary artery without angina pectoris; Z87.19 Personal history of other diseases of the digestive system; Z79.890 Hormone replacement therapy; Z79.899 Other long term (current) drug therapy; Z79.82 Long term (current) use of aspirin; Z90.710 Acquired absence of both cervix and uterus; Z95.810 Presence of automatic (implantable) cardiac defibrillator; Z82.49 Family history of ischemic heart disease and other diseases of the circulatory system; Z79.84 Long term (current) use of oral hypoglycemic drugs
CPT/HCPCS: 36415; 36416; 71045; 80048; 80053; 80061; 82553; 83690; 83735; 83880; 84439; 84443; 84484; 85025; 93005; 93306; 93798; 94760; 96372; 96374; 96375; 96376; G0378; J0360; J1650; J1940; J3475; U0002

== ENCOUNTER 2022-01-29 10:43 | Inpatient (IN) | payer MEDICARE, MEDICAID ==
[2022-01-29] MEDS ORDERED: Iopamidol-370 76% 500 ML 1 ML ONE (11:00)
[2022-01-29] MEDS ORDERED: Nitroglycerin 2% Ointment 1 INCH/1 GM Packet ONE (11:09)
[2022-01-29 11:19] LABS: #Basophils 0.1 thou/uL (0.0-0.2); #Eosinphils 0.2 thou/uL (0.0-0.7); #Lymphocytes 1.5 thou/uL (1.20-3.40); #Monocytes 0.5 thou/uL (0.11-0.59); #Neutrophils 4.2 thou/uL (1.40-6.50); %Basophils 1.1 % (0.0-1.0); %Eosinophils 2.3 % (0.0-10.0); %Lymphocytes 23.8 % (21.0-51.0); %Monocytes 8.2 % (0.0-10.0); %Neutrophils 64.6 % (42.0-75.0); Hemoglobin 13.4 g/dL (12.0-16.0); Mean Corpuscular HGB CONC 33.1 g/dL (32.0-36.0); Mean Corpuscular Hemoglobin 32.9 pg (27.0-31.0); Mean Corpuscular Volume 99.3 fl (78.0-98.0); Mean Platelet Volume 7.6 fL (7.4-10.4); Platelet Count 281 10x3/uL (130-400); RBC Distribution Width 13.8 % (11.5-14.5); Red Blood Cell (RBC) Count 4.06 mill/uL (4.20-5.40); White Blood Cell (WBC) Count 6.5 10x3/uL (4.8-10.8)
[2022-01-29 11:42] LABS: ALT (SGPT) 12 U/L (8-55); AST (SGOT) 12 U/L (5-34); Albumin 4.4 g/dL (3.4-4.8); Alkaline Phosphatase 63 U/L (40-110); Anion Gap 13 mmol/L (10-20); BUN (Urea Nitrogen) 11 mg/dL (9.8-20.1); Bilirubin, Total 0.5 mg/dL (0.2-1.2); Calc. Creatinine Clearance 0 mL/min (70-130); Calcium 9.6 mg/dL (7.8-10.44); Carbon Dioxide 26 mmol/L (23-31); Chloride 107 mmol/L (98-107); Estimated GFR 37; Globulin 2.7 g/dL (2.4-3.5); Glucose 133 mg/dL (83-110); Lipase 9 U/L (8-78); Potassium 3.8 mmol/L (3.5-5.1); Protein, Total 7.1 g/dL (5.8-8.1); Sodium 142 mmol/L (136-145)
[2022-01-29 12:04] LABS: CKMB 0.6 ng/mL (0-6.6)
[2022-01-29] MEDS ORDERED: Furosemide 40 MG/4 ML VIAL ONE (13:27)
[2022-01-29] MEDS ORDERED: Cepastat Lozenges 1 LOZ PO PRN (14:34)
[2022-01-29] MEDS ORDERED: Senokot S 8.6-50 MG TAB PO PRN (14:34)
[2022-01-29] MEDS ORDERED: Acetaminophen 500 MG TAB PO PRN (14:34)
[2022-01-29] MEDS ORDERED: HumaLOG 300 UNITS/3 ML VIAL SC PRN (14:39)
[2022-01-29] MEDS ORDERED: Dextrose 50% Abboject 50 ML SYRINGE SLOW IVP PRN (14:39)
[2022-01-29] MEDS ORDERED: Dextrose 5% in Water 1,000 ML IV PRN (14:39)
[2022-01-29 14:46] LABS: Troponin I 0.011 ng/mL (< 0.028)
[2022-01-29 15:20] VITALS: BMI 29.6
[2022-01-29 15:30] LABS: Magnesium 1.9 mg/dL (1.6-2.6)
[2022-01-29] MEDS: Carvedilol 25 MG TAB PO SCH ×2 (16:33→21:50)
[2022-01-29] MEDS: Heparin 5,000 UNITS/ML VIAL SC SCH ×2 (16:33→21:50)
[2022-01-29] MEDS: hydrALAZINE 25 MG TAB PO SCH ×2 (16:34→21:50)
[2022-01-29 17:36] LABS: Troponin I 0.019 ng/mL (< 0.028)
[2022-01-29 17:50] LABS: SARS-CoV-2 NAA Rapid Test Not Detected (NotDetected)
[2022-01-30 03:13] LABS: #Basophils 0.1 thou/uL (0.0-0.2); #Eosinphils 0.2 thou/uL (0.0-0.7); #Lymphocytes 2.6 thou/uL (1.20-3.40); #Monocytes 0.7 thou/uL (0.11-0.59); #Neutrophils 3.5 thou/uL (1.40-6.50); %Basophils 1.2 % (0.0-1.0); %Eosinophils 2.6 % (0.0-10.0); %Lymphocytes 36.1 % (21.0-51.0); %Monocytes 10.1 % (0.0-10.0); Hemoglobin 11.3 g/dL (12.0-16.0); Mean Corpuscular HGB CONC 32.2 g/dL (32.0-36.0); Mean Corpuscular Hemoglobin 31.6 pg (27.0-31.0); Mean Corpuscular Volume 98.4 fl (78.0-98.0); Mean Platelet Volume 7.8 fL (7.4-10.4); Platelet Count 264 10x3/uL (130-400); RBC Distribution Width 13.9 % (11.5-14.5); Red Blood Cell (RBC) Count 3.58 mill/uL (4.20-5.40); White Blood Cell (WBC) Count 7.1 10x3/uL (4.8-10.8)
[2022-01-30 03:38] LABS: Anion Gap 11 mmol/L (10-20); BUN (Urea Nitrogen) 15 mg/dL (9.8-20.1); Calc. Creatinine Clearance 36 mL/min (70-130); Calcium 9.2 mg/dL (7.8-10.44); Carbon Dioxide 26 mmol/L (23-31); Chloride 108 mmol/L (98-107); Estimated GFR 34; Glucose 93 mg/dL (83-110); Potassium 3.3 mmol/L (3.5-5.1); Sodium 142 mmol/L (136-145)
[2022-01-30] MEDS ORDERED: Potassium Chloride 20 MEQ TAB PO SCH (04:45)
[2022-01-30] MEDS: Furosemide 40 MG/4 ML VIAL SLOW IVP SCH ×2 (05:20→15:48)
[2022-01-30] MEDS: Carvedilol 25 MG TAB PO SCH ×3 (08:22→20:57)
[2022-01-30] MEDS: Ezetimibe 10 MG TAB PO SCH (08:22)
[2022-01-30] MEDS: Aspirin Chewable 81 MG TAB PO SCH (08:22)
[2022-01-30] MEDS: Rosuvastatin 20 MG TAB PO SCH (08:22)
[2022-01-30] MEDS: Amiodarone 200 MG TAB PO SCH (08:22)
[2022-01-30] MEDS: hydrALAZINE 25 MG TAB PO SCH ×3 (08:22→20:57)
[2022-01-30] MEDS: Heparin 5,000 UNITS/ML VIAL SC SCH ×3 (08:26→20:58)
[2022-01-31 04:11] LABS: #Basophils 0.1 thou/uL (0.0-0.2); #Eosinphils 0.2 thou/uL (0.0-0.7); #Lymphocytes 2.8 thou/uL (1.20-3.40); #Monocytes 0.6 thou/uL (0.11-0.59); #Neutrophils 2.3 thou/uL (1.40-6.50); %Eosinophils 2.9 % (0.0-10.0); %Monocytes 10.4 % (0.0-10.0); %Neutrophils 38.8 % (42.0-75.0); Hemoglobin 11.5 g/dL (12.0-16.0); Mean Corpuscular HGB CONC 32.8 g/dL (32.0-36.0); Mean Corpuscular Hemoglobin 32.3 pg (27.0-31.0); Mean Corpuscular Volume 98.6 fl (78.0-98.0); Mean Platelet Volume 7.9 fL (7.4-10.4); Platelet Count 246 10x3/uL (130-400); Red Blood Cell (RBC) Count 3.55 mill/uL (4.20-5.40); White Blood Cell (WBC) Count 5.9 10x3/uL (4.8-10.8)
[2022-01-31 04:29] LABS: Anion Gap 13 mmol/L (10-20); BUN (Urea Nitrogen) 18 mg/dL (9.8-20.1); Calc. Creatinine Clearance 34 mL/min (70-130); Carbon Dioxide 26 mmol/L (23-31); Chloride 104 mmol/L (98-107); Estimated GFR 32; Glucose 104 mg/dL (83-110); Potassium 3.6 mmol/L (3.5-5.1); Sodium 139 mmol/L (136-145)
[2022-01-31] MEDS: Furosemide 40 MG/4 ML VIAL SLOW IVP SCH ×2 (05:52→13:41)
[2022-01-31] MEDS: hydrALAZINE 25 MG TAB PO SCH ×3 (08:37→21:05)
[2022-01-31] MEDS: Amiodarone 200 MG TAB PO SCH (08:37)
[2022-01-31] MEDS: Aspirin Chewable 81 MG TAB PO SCH (08:37)
[2022-01-31] MEDS: Carvedilol 25 MG TAB PO SCH ×3 (08:37→21:05)
[2022-01-31] MEDS: Heparin 5,000 UNITS/ML VIAL SC SCH ×3 (08:38→21:04)
[2022-01-31] MEDS: Ezetimibe 10 MG TAB PO SCH (12:23)
[2022-01-31] MEDS: Rosuvastatin 20 MG TAB PO SCH (12:23)
[2022-01-31] MEDS ORDERED: Rosuvastatin 20 MG TAB PO SCH (21:00)
[2022-02-01 00:54] VITALS: TEMP 98.1
[2022-02-01] MEDS: Furosemide 40 MG/4 ML VIAL SLOW IVP SCH (05:15)
[2022-02-01] MEDS ORDERED: Levothyroxine Sodium 112 MCG TAB PO SCH (06:00)
[2022-02-01 06:28] LABS: #Basophils 0.1 thou/uL (0.0-0.2); #Eosinphils 0.1 thou/uL (0.0-0.7); #Lymphocytes 2.5 thou/uL (1.20-3.40); #Monocytes 0.6 thou/uL (0.11-0.59); #Neutrophils 2.3 thou/uL (1.40-6.50); %Basophils 1.4 % (0.0-1.0); %Eosinophils 2.4 % (0.0-10.0); %Lymphocytes 43.9 % (21.0-51.0); %Monocytes 10.4 % (0.0-10.0); %Neutrophils 41.8 % (42.0-75.0); Hemoglobin 12.6 g/dL (12.0-16.0); Mean Corpuscular HGB CONC 31.9 g/dL (32.0-36.0); Mean Corpuscular Hemoglobin 31.7 pg (27.0-31.0); Mean Corpuscular Volume 99.5 fl (78.0-98.0); Mean Platelet Volume 7.8 fL (7.4-10.4); Platelet Count 290 10x3/uL (130-400); Red Blood Cell (RBC) Count 3.98 mill/uL (4.20-5.40); White Blood Cell (WBC) Count 5.6 10x3/uL (4.8-10.8)
[2022-02-01 07:30] VITALS: BP 110/72
[2022-02-01 07:37] LABS: Anion Gap 13 mmol/L (10-20); BUN (Urea Nitrogen) 25 mg/dL (9.8-20.1); Calc. Creatinine Clearance 33 mL/min (70-130); Calcium 9.4 mg/dL (7.8-10.44); Carbon Dioxide 27 mmol/L (23-31); Chloride 103 mmol/L (98-107); Estimated GFR 30; Glucose 99 mg/dL (83-110); Potassium 3.5 mmol/L (3.5-5.1); Sodium 139 mmol/L (136-145)
[2022-02-01] MEDS: Carvedilol 25 MG TAB PO SCH (09:16)
[2022-02-01] MEDS: Amiodarone 200 MG TAB PO SCH (09:16)
[2022-02-01] MEDS: Aspirin Chewable 81 MG TAB PO SCH (09:16)
[2022-02-01] MEDS: hydrALAZINE 25 MG TAB PO SCH (09:16)
[2022-02-01] MEDS: Heparin 5,000 UNITS/ML VIAL SC SCH (09:19)
[2022-02-01] MEDS: Ezetimibe 10 MG TAB PO SCH (09:20)
[2022-02-01] MEDS ORDERED: FLU VACC QS2022-23(65YR UP)/PF 240 MCG/0.7 ML SYRINGE IM ONE (15:30)
== END 2022-02-01 13:33 | disposition home or self-care (01) | DRG 291 ==
LOC: ERS 10:43 → IMCU/EMU 13:53 → T4-A 01-31 15:47
PROVIDERS: ADMIT Internal Medicine; ATTEND Internal Medicine
PROC: 5A09357 Assistance with Respiratory Ventilation, Less than 24 Consecutive Hours, Continuous Positive Airway Pressure (ICD-10-PCS; principal; 2022-01-29)
DX: I13.0 Hypertensive heart and chronic kidney disease with heart failure and stage 1 through stage 4 chronic kidney disease, or unspecified chronic kidney disease (principal); I50.43 Acute on chronic combined systolic (congestive) and diastolic (congestive) heart failure; J96.01 Acute respiratory failure with hypoxia; Z20.822 Contact with and (suspected) exposure to COVID-19; E27.8 Other specified disorders of adrenal gland; E03.9 Hypothyroidism, unspecified; E78.5 Hyperlipidemia, unspecified; F17.210 Nicotine dependence, cigarettes, uncomplicated; I48.0 Paroxysmal atrial fibrillation; Z90.710 Acquired absence of both cervix and uterus; Z79.899 Other long term (current) drug therapy; Z79.84 Long term (current) use of oral hypoglycemic drugs; Z79.82 Long term (current) use of aspirin; Z79.890 Hormone replacement therapy; Z82.49 Family history of ischemic heart disease and other diseases of the circulatory system
CPT/HCPCS: 36415; 36416; 71045; 71275; 74177; 74181; 80048; 80053; 82553; 83690; 83735; 83880; 84484; 85025; 93005; 93798; 94760; 96374; J1644; J1940; Q9967

== ENCOUNTER 2022-05-02 23:24 | Emergency (ER) | payer MEDICARE, MEDICAID ==
[2022-05-03] MEDS ORDERED: Acetaminophen 500 MG TAB ONE (00:48)
== END 2022-05-03 01:32 | disposition home or self-care (01) ==
LOC: ERS 23:24
DX: S39.012A Strain of muscle, fascia and tendon of lower back, initial encounter (principal); M25.511 Pain in right shoulder; E03.9 Hypothyroidism, unspecified; E78.00 Pure hypercholesterolemia, unspecified; I50.9 Heart failure, unspecified; I25.10 Atherosclerotic heart disease of native coronary artery without angina pectoris; E11.9 Type 2 diabetes mellitus without complications; Z79.84 Long term (current) use of oral hypoglycemic drugs; F17.210 Nicotine dependence, cigarettes, uncomplicated; Z79.899 Other long term (current) drug therapy; Z79.82 Long term (current) use of aspirin; X58.XXXA Exposure to other specified factors, initial encounter
CPT/HCPCS: 99283

== ENCOUNTER 2022-11-09 16:01 | Emergency (ER) | payer OTHER, MEDICAID | END 2022-11-09 16:47 | disposition home or self-care (01) | LOC: ERS 16:01 | DX: S93.401A Sprain of unspecified ligament of right ankle, initial encounter (principal); M25.561 Pain in right knee; E11.9 Type 2 diabetes mellitus without complications; E78.5 Hyperlipidemia, unspecified; I10 Essential (primary) hypertension; F17.210 Nicotine dependence, cigarettes, uncomplicated; Z79.899 Other long term (current) drug therapy; Z79.84 Long term (current) use of oral hypoglycemic drugs; Z79.82 Long term (current) use of aspirin; W01.0XXA Fall on same level from slipping, tripping and stumbling without subsequent striking against object, initial encounter ==

== ENCOUNTER 2023-01-22 21:26 | Observation (INO) | payer OTHER, MEDICAID ==
[2023-01-22] MEDS ORDERED: Famotidine/PF 20 mg/2ml Vial ONE (23:05)
[2023-01-22] MEDS ORDERED: Ondansetron PF 4 MG/2 ML Vial ONE (23:05)
[2023-01-22] MEDS ORDERED: Ketorolac Tromethamine 30 MG/ML VIAL ONE (23:05)
[2023-01-22 23:43] LABS: #Basophils 0.1 thou/uL (0.0-0.2); #Eosinphils 0.1 thou/uL (0.0-0.7); #Monocytes 0.8 thou/uL (0.11-0.59); %Lymphocytes 35.1 % (21.0-51.0); %Monocytes 12.3 % (0.0-10.0); %Neutrophils 48.9 % (42.0-75.0); Mean Corpuscular HGB CONC 35.1 g/dL (32.0-36.0); Mean Corpuscular Hemoglobin 32.8 pg (27.0-31.0); Mean Corpuscular Volume 93.4 fl (78.0-98.0); Mean Platelet Volume 10.4 fL (7.4-10.4); Platelet Count 281 10x3/uL (130-400); RBC Distribution Width 14.5 % (11.5-14.5); Red Blood Cell (RBC) Count 3.96 mill/uL (4.20-5.40); White Blood Cell (WBC) Count 6.1 10x3/uL (4.8-10.8)
[2023-01-23 00:07] LABS: ALT (SGPT) 14 U/L (8-55); AST (SGOT) 21 U/L (5-34); Albumin 4.9 g/dL (3.4-4.8); Alkaline Phosphatase 47 U/L (40-110); Anion Gap 19 mmol/L (10-20); BUN (Urea Nitrogen) 45 mg/dL (9.8-20.1); Bilirubin, Total 0.4 mg/dL (0.2-1.2); Calc. Creatinine Clearance 0 mL/min (70-130); Calcium 10.3 mg/dL (7.8-10.44); Carbon Dioxide 29 mmol/L (23-31); Chloride 96 mmol/L (98-107); Estimated GFR 19; Globulin 3.2 g/dL (2.4-3.5); Glucose 86 mg/dL (83-110); Lipase 26 U/L (8-78); Potassium 3.5 mmol/L (3.5-5.1); Protein, Total 8.1 g/dL (5.8-8.1); Sodium 140 mmol/L (136-145)
[2023-01-23 00:10] LABS: Troponin I 0.042 ng/mL (< 0.028)
[2023-01-23 00:26] LABS: SARS-CoV-2 NAA Rapid Test Not Detected (NotDetected)
[2023-01-23] MEDS ORDERED: Aspirin 325 MG TAB ONE (02:08)
[2023-01-23 03:39] LABS: Troponin I 0.017 ng/mL (< 0.028)
[2023-01-23 06:43] LABS: Troponin I 0.022 ng/mL (< 0.028)
[2023-01-23] MEDS ORDERED: Ondansetron ODT 4 MG TAB PO PRN (07:31)
[2023-01-23] MEDS ORDERED: Acetaminophen 325 MG TAB PO PRN (07:31)
[2023-01-23] MEDS ORDERED: Insulin Regular 300 UNITS/3 ML VIAL SC PRN (07:38)
[2023-01-23] MEDS ORDERED: Glucagon 1 MG/ML KIT IM PRN (07:38)
[2023-01-23] MEDS ORDERED: Dextrose 5% in Water 1,000 ML IV PRN (07:38)
[2023-01-23] MEDS ORDERED: Dextrose 50% Abboject 50 ML SYRINGE SLOW IVP PRN (07:38)
[2023-01-23] MEDS ORDERED: Carvedilol 25 MG TAB ONE (07:52)
[2023-01-23] MEDS ORDERED: Famotidine 20 MG TAB ONE (07:52)
[2023-01-23] MEDS ORDERED: Aspirin Chewable 81 MG TAB ONE (07:52)
[2023-01-23] MEDS: Carvedilol 25 MG TAB PO SCH ×2 (07:55→15:36)
[2023-01-23] MEDS: Aspirin Chewable 81 MG TAB PO SCH (07:55)
[2023-01-23] MEDS: Famotidine 20 MG TAB PO SCH ×2 (07:55→19:39)
[2023-01-23] MEDS ORDERED: Sodium Chloride 0.9% 1,000 ML IV SCH (09:45)
[2023-01-23 12:06] LABS: Hemoglobin A1c 6.2 % (4.0-6.0)
[2023-01-23 14:43] VITALS: BMI 29.7
[2023-01-23] MEDS ORDERED: FLU VACC QS2023(65UP)/MF59C/PF 60 MCG/0.5 ML SYRINGE IM ONE (15:15)
[2023-01-23] MEDS ORDERED: Carvedilol 25 MG TAB PO SCH (17:00)
[2023-01-24 05:55] LABS: Anion Gap 13 mmol/L (10-20); BUN (Urea Nitrogen) 48 mg/dL (9.8-20.1); Calc. Creatinine Clearance 20 mL/min (70-130); Calcium 8.9 mg/dL (7.8-10.44); Carbon Dioxide 27 mmol/L (23-31); Chloride 102 mmol/L (98-107); Estimated GFR 17; Glucose 87 mg/dL (83-110); Potassium 3.1 mmol/L (3.5-5.1); Sodium 139 mmol/L (136-145)
[2023-01-24] MEDS ORDERED: Levothyroxine Sodium 112 MCG TAB PO SCH (06:00)
[2023-01-24 07:43] VITALS: BP 120/73; TEMP 98.1
[2023-01-24] MEDS ORDERED: Heparin 5,000 UNITS/ML VIAL SC SCH (09:00)
[2023-01-24] MEDS ORDERED: Rosuvastatin 20 MG TAB PO SCH (09:00)
[2023-01-24] MEDS ORDERED: Amiodarone 200 MG TAB PO SCH (09:00)
[2023-01-24] MEDS: Carvedilol 25 MG TAB PO SCH (09:01)
[2023-01-24] MEDS: Aspirin Chewable 81 MG TAB PO SCH (09:01)
[2023-01-24] MEDS ORDERED: Potassium Chloride 20 MEQ TAB PO SCH (10:30)
[2023-01-25] MEDS ORDERED: Famotidine 20 MG TAB PO SCH (21:00)
== END 2023-01-24 11:00 | disposition home or self-care (01) ==
LOC: ERS 21:26 → ERHOLD 01-23 05:56 → 2SW 01-23 14:36
PROVIDERS: ADMIT Student in an Organized Health Care Education/Training Program; ATTEND Nurse Practitioner Acute Care
DX: R07.89 Other chest pain (principal); I48.0 Paroxysmal atrial fibrillation; I13.0 Hypertensive heart and chronic kidney disease with heart failure and stage 1 through stage 4 chronic kidney disease, or unspecified chronic kidney disease; I50.22 Chronic systolic (congestive) heart failure; E11.22 Type 2 diabetes mellitus with diabetic chronic kidney disease; N18.30 Chronic kidney disease, stage 3 unspecified; N17.9 Acute kidney failure, unspecified; I42.9 Cardiomyopathy, unspecified; I08.3 Combined rheumatic disorders of mitral, aortic and tricuspid valves; E03.9 Hypothyroidism, unspecified; E78.5 Hyperlipidemia, unspecified; F17.210 Nicotine dependence, cigarettes, uncomplicated; Z79.899 Other long term (current) drug therapy; Z90.710 Acquired absence of both cervix and uterus; Z95.0 Presence of cardiac pacemaker
CPT/HCPCS: 0240U; 71045; 76705; 80048; 80053; 82962; 83036; 83690; 83880; 84439; 84443; 84484 ×3; 85025; 93005; 93306; 94760; 36415; 36416; 96372; 96374; 96375; G0378; J1644; J1885; J2405; J7050; S0028

== ENCOUNTER 2023-04-10 12:03 | Emergency (ER) | payer OTHER, MEDICAID ==
[2023-04-10 12:27] LABS: #Basophils 0.1 thou/uL (0.0-0.2); #Eosinphils 0.2 thou/uL (0.0-0.7); #Monocytes 0.6 thou/uL (0.11-0.59); %Basophils 1.6 % (0.0-1.0); %Eosinophils 3.1 % (0.0-10.0); %Monocytes 9.1 % (0.0-10.0); %Neutrophils 32.9 % (42.0-75.0); Hematocrit 33.7 % (36.0-47.0); Hemoglobin 11.5 g/dL (12.0-16.0); Mean Corpuscular HGB CONC 34.1 g/dL (32.0-36.0); Mean Corpuscular Hemoglobin 33.1 pg (27.0-31.0); Mean Corpuscular Volume 97.1 fl (78.0-98.0); Mean Platelet Volume 9.5 fL (7.4-10.4); Platelet Count 282 10x3/uL (130-400); RBC Distribution Width 14.3 % (11.5-14.5); Red Blood Cell (RBC) Count 3.47 mill/uL (4.20-5.40); White Blood Cell (WBC) Count 6.1 10x3/uL (4.8-10.8)
[2023-04-10 13:08] LABS: ALT (SGPT) 10 U/L (8-55); AST (SGOT) 12 U/L (5-34); Albumin 4.1 g/dL (3.4-4.8); Alkaline Phosphatase 45 U/L (40-110); Anion Gap 12 mmol/L (10-20); BUN (Urea Nitrogen) 26 mg/dL (9.8-20.1); Bilirubin, Total 0.2 mg/dL (0.2-1.2); Calc. Creatinine Clearance 0 mL/min (70-130); Calcium 9.6 mg/dL (7.8-10.44); Carbon Dioxide 24 mmol/L (23-31); Chloride 106 mmol/L (98-107); Estimated GFR 17; Globulin 2.7 g/dL (2.4-3.5); Glucose 113 mg/dL (83-110); Potassium 3.7 mmol/L (3.5-5.1); Protein, Total 6.8 g/dL (5.8-8.1); Sodium 138 mmol/L (136-145)
[2023-04-10 14:13] LABS: Troponin I 0.014 ng/mL (< 0.028)
== END 2023-04-10 16:20 | disposition home or self-care (01) ==
LOC: ERS 12:03
DX: I48.91 Unspecified atrial fibrillation (principal); R06.02 Shortness of breath; I10 Essential (primary) hypertension; F17.210 Nicotine dependence, cigarettes, uncomplicated; E11.9 Type 2 diabetes mellitus without complications; E78.5 Hyperlipidemia, unspecified; Z79.84 Long term (current) use of oral hypoglycemic drugs; Z79.899 Other long term (current) drug therapy
CPT/HCPCS: 36415; 71045; 80053; 83880; 84484; 85025; 93005

== ENCOUNTER 2023-05-04 06:53 | Emergency (ER) | payer OTHER, MEDICAID ==
[2023-05-04 08:23] LABS: #Basophils 0.1 thou/uL (0.0-0.2); #Eosinphils 0.2 thou/uL (0.0-0.7); #Monocytes 0.4 thou/uL (0.11-0.59); #Neutrophils 1.9 thou/uL (1.40-6.50); %Basophils 1.5 % (0.0-1.0); %Eosinophils 3.3 % (0.0-10.0); %Lymphocytes 44.8 % (21.0-51.0); %Monocytes 9.6 % (0.0-10.0); %Neutrophils 40.6 % (42.0-75.0); Hematocrit 39.4 % (36.0-47.0); Hemoglobin 13.4 g/dL (12.0-16.0); Mean Corpuscular Hemoglobin 32.7 pg (27.0-31.0); Mean Corpuscular Volume 96.1 fl (78.0-98.0); Mean Platelet Volume 9.5 fL (7.4-10.4); Platelet Count 268 10x3/uL (130-400); RBC Distribution Width 13.9 % (11.5-14.5); White Blood Cell (WBC) Count 4.6 10x3/uL (4.8-10.8)
[2023-05-04 08:32] LABS: Bacteria/HPF None Seen HPF (None Seen); Bilirubin Negative (Negative); Blood, Urine Negative (Negative); CAUTI Indications for Culture Pelvic or flank pain; Clarity Clear (Clear); Glucose, Urine (Dipstick) Normal (Negative); Ketone, Urine Negative (Negative); Leukocyte 75 Leu/uL (Negative); Nitrite Negative (Negative); Protein, Urine (Dipstick) Negative (Neg-Trace); RBC/HPF None Seen HPF (0-3); Specific Gravity, Urine 1.013 (1.002-1.036); Squamous Epithelial 0-3 HPF (0-3); Urobilinogen Normal mg/dL (Less than 2); WBC/HPF 0-3 HPF (0-3); pH, Urine 6.5 (5.0-9.0)
[2023-05-04 08:35] LABS: Urine Culture Reflex No No
[2023-05-04 08:39] LABS: ALT (SGPT) 14 U/L (8-55); AST (SGOT) 21 U/L (5-34); Albumin 4.5 g/dL (3.4-4.8); Alkaline Phosphatase 51 U/L (40-110); Anion Gap 12 mmol/L (10-20); BUN (Urea Nitrogen) 43 mg/dL (9.8-20.1); Bilirubin, Total 0.4 mg/dL (0.2-1.2); Calc. Creatinine Clearance 0 mL/min (70-130); Carbon Dioxide 34 mmol/L (23-31); Chloride 98 mmol/L (98-107); Estimated GFR 18; Glucose 140 mg/dL (83-110); Lipase 26 U/L (8-78); Potassium 3.4 mmol/L (3.5-5.1); Protein, Total 7.5 g/dL (5.8-8.1); Sodium 141 mmol/L (136-145)
[2023-05-04 08:42] LABS: Troponin I 0.033 ng/mL (< 0.028)
[2023-05-04 09:42] LABS: SARS-CoV-2 NAA Rapid Test Not Detected (NotDetected)
== END 2023-05-04 11:06 | disposition home or self-care (01) ==
LOC: ERS 06:53
DX: K13.70 Unspecified lesions of oral mucosa (principal); R09.89 Other specified symptoms and signs involving the circulatory and respiratory systems; R10.12 Left upper quadrant pain; I10 Essential (primary) hypertension; E11.9 Type 2 diabetes mellitus without complications; I48.91 Unspecified atrial fibrillation; E78.5 Hyperlipidemia, unspecified; F17.210 Nicotine dependence, cigarettes, uncomplicated; Z75.3 Unavailability and inaccessibility of health-care facilities; Z55.6 Problems related to health literacy; Z79.899 Other long term (current) drug therapy
CPT/HCPCS: 70490; 71045; 74176; 80053; 81001; 83605; 83690; 84484; 85025; 87804 ×2; 93005; U0002; 36415

== ENCOUNTER 2023-08-12 06:29 | Emergency (ER) | payer OTHER, MEDICAID ==
[2023-08-12 07:34] LABS: #Basophils 0.06 10x3/uL (0.0-0.2); %Basophils 1.4 % (0.0-1.0); %Eosinophils 2.7 % (0.0-10.0); %Lymphocytes 37.6 % (21.0-51.0); %Monocytes 11.3 % (0.0-10.0); %Neutrophils 46.5 % (42.0-75.0); Hematocrit 32.6 % (36.0-47.0); Hemoglobin 11.1 g/dL (12.0-16.0); Mean Corpuscular Volume 91.1 fL (78.0-98.0); Mean Platelet Volume 8.8 fL (7.4-10.4); Platelet Count 393 10x3/uL (130-400); RBC Distribution Width 14.7 % (11.5-14.5); Red Blood Cell (RBC) Count 3.58 mill/uL (4.20-5.40)
[2023-08-12 07:54] LABS: ALT (SGPT) 13 U/L (8-55); AST (SGOT) 16 U/L (5-34); Albumin 3.6 g/dL (3.4-4.8); Alkaline Phosphatase 49 U/L (40-110); Anion Gap 17 mmol/L (10-20); BUN (Urea Nitrogen) 34 mg/dL (9.8-20.1); Bilirubin, Total 0.3 mg/dL (0.2-1.2); Calc. Creatinine Clearance 0 mL/min (70-130); Calcium 9.9 mg/dL (7.8-10.44); Carbon Dioxide 27 mmol/L (23-31); Chloride 101 mmol/L (98-107); Estimated GFR 19; Globulin 3.7 g/dL (2.4-3.5); Glucose 125 mg/dL (83-110); Magnesium 1.9 mg/dL (1.6-2.6); Potassium 3.5 mmol/L (3.5-5.1); Protein, Total 7.3 g/dL (5.8-8.1); Sodium 141 mmol/L (136-145)
== END 2023-08-12 08:25 | disposition home or self-care (01) ==
LOC: ERS 06:29
DX: J02.9 Acute pharyngitis, unspecified (principal); E11.22 Type 2 diabetes mellitus with diabetic chronic kidney disease; N18.9 Chronic kidney disease, unspecified; I12.9 Hypertensive chronic kidney disease with stage 1 through stage 4 chronic kidney disease, or unspecified chronic kidney disease; E78.5 Hyperlipidemia, unspecified; E03.9 Hypothyroidism, unspecified; I25.10 Atherosclerotic heart disease of native coronary artery without angina pectoris; Z79.82 Long term (current) use of aspirin; Z79.899 Other long term (current) drug therapy; Z55.6 Problems related to health literacy
CPT/HCPCS: 36415; 71045; 80053; 83735; 84443; 84484; 85025; 93005

== ENCOUNTER 2024-02-24 16:41 | Emergency (ER) | payer OTHER ==
[2024-02-24 17:18] LABS: #Basophils 0.05 10x3/uL (0.0-0.2); %Basophils 0.8 % (0.0-1.0); %Eosinophils 0.7 % (0.0-10.0); %Lymphocytes 26.2 % (21.0-51.0); %Monocytes 8.8 % (0.0-10.0); Hematocrit 32.1 % (36.0-47.0); Hemoglobin 11.2 g/dL (12.0-16.0); Mean Corpuscular HGB CONC 34.9 g/dL (32.0-36.0); Mean Corpuscular Hemoglobin 30.9 pg (27.0-31.0); Mean Corpuscular Volume 88.7 fL (78.0-98.0); Mean Platelet Volume 8.9 fL (7.4-10.4); Platelet Count 495 10x3/uL (130-400); RBC Distribution Width 14.4 % (11.5-14.5); Red Blood Cell (RBC) Count 3.62 mill/uL (4.20-5.40)
[2024-02-24 17:46] LABS: Chloride 95 mmol/L (98-107); Potassium 3.5 mmol/L (3.5-5.1); Sodium 133 mmol/L (136-145)
[2024-02-24 17:48] LABS: ALT (SGPT) 8 U/L (8-55); AST (SGOT) 12 U/L (5-34); Albumin 3.3 g/dL (3.4-4.8); Alkaline Phosphatase 54 U/L (40-110); Anion Gap 16 mmol/L (10-20); BUN (Urea Nitrogen) 38 mg/dL (9.8-20.1); Bilirubin, Total 0.4 mg/dL (0.2-1.2); Calc. Creatinine Clearance 0 mL/min (70-130); Calcium 9.6 mg/dL (7.8-10.44); Carbon Dioxide 25 mmol/L (23-31); Estimated GFR 18; Globulin 4.3 g/dL (2.4-3.5); Glucose 174 mg/dL (83-110); Protein, Total 7.6 g/dL (5.8-8.1)
[2024-02-24] MEDS ORDERED: Acetaminophen 325 MG TAB ONE (18:10)
[2024-02-24 18:17] LABS: Troponin I 0.014 ng/mL (< 0.028)
[2024-02-24 18:45] LABS: Bacteria/HPF None Seen HPF (None Seen); Bilirubin Negative (Negative); Blood, Urine Negative (Negative); CAUTI Indications for Culture Dysuria,urgency,freq; Clarity Clear (Clear); Glucose, Urine (Dipstick) Normal (Negative); Ketone, Urine Negative (Negative); Leukocyte Negative Leu/uL (Negative); Nitrite Negative (Negative); Protein, Urine (Dipstick) Negative (Neg-Trace); RBC/HPF None Seen HPF (0-3); Squamous Epithelial 0-3 HPF (0-3); Urobilinogen Normal mg/dL (Less than 2); WBC/HPF 0-3 HPF (0-3); pH, Urine 6.5 (5.0-9.0)
[2024-02-24 18:46] LABS: Urine Culture Reflex No No
== END 2024-02-24 19:15 | disposition home or self-care (01) ==
LOC: ERS 16:41
DX: R10.9 Unspecified abdominal pain (principal); E03.9 Hypothyroidism, unspecified; I12.9 Hypertensive chronic kidney disease with stage 1 through stage 4 chronic kidney disease, or unspecified chronic kidney disease; E11.22 Type 2 diabetes mellitus with diabetic chronic kidney disease; N18.9 Chronic kidney disease, unspecified; I48.91 Unspecified atrial fibrillation; F17.210 Nicotine dependence, cigarettes, uncomplicated; Z79.899 Other long term (current) drug therapy; Z79.82 Long term (current) use of aspirin
CPT/HCPCS: 36415; 71045; 74176; 80053; 81001; 84484; 85025; 93005

== ENCOUNTER 2024-03-15 23:11 | Emergency (ER) | payer OTHER ==
[2024-03-15] MEDS ORDERED: Dexamethasone 10 MG/ML VIAL ONE (23:36)
[2024-03-15] MEDS ORDERED: Acetaminophen 325 MG TAB ONE (23:36)
== END 2024-03-16 00:05 | disposition home or self-care (01) ==
LOC: ERS 23:11
DX: M10.9 Gout, unspecified (principal); M25.562 Pain in left knee; I48.91 Unspecified atrial fibrillation; I12.9 Hypertensive chronic kidney disease with stage 1 through stage 4 chronic kidney disease, or unspecified chronic kidney disease; E11.22 Type 2 diabetes mellitus with diabetic chronic kidney disease; N18.9 Chronic kidney disease, unspecified; F17.210 Nicotine dependence, cigarettes, uncomplicated; M06.9 Rheumatoid arthritis, unspecified; E03.9 Hypothyroidism, unspecified; Z79.01 Long term (current) use of anticoagulants; Z79.82 Long term (current) use of aspirin; Z79.899 Other long term (current) drug therapy; Z95.0 Presence of cardiac pacemaker
CPT/HCPCS: 96372; 99282; J1100

== ENCOUNTER 2024-11-18 07:03 | Inpatient (IN) | payer OTHER, MEDICAID ==
[2024-11-18 07:30] LABS: Actual Bicarbonate (HCO3v) 23.3 mEq/L (22-28); Base Excess -1.9 mEq/L (-2.0 to +3.0); Calcium, Ionized (venous) 1.18 mmol/L (1.16-1.32); Chloride (VBG) 107 mmol/L (98-106); Hematocrit-VBG 36 % (36.0-47.0); Hemoglobin (Hb) 12.2 g/dL (11.7-16.1); Potassium (VBG) 4.11 mmol/L (3.70-5.30); Sodium 137 mmol/L (133-146)
[2024-11-18] MEDS ORDERED: Nitroglycerin 0.4 MG TAB 1 EACH ONE (07:36)
[2024-11-18] MEDS ORDERED: Furosemide 40 MG (4 mL) VIAL ONE (07:36)
[2024-11-18] MEDS ORDERED: Aspirin Chewable 81 MG TAB ONE (07:37)
[2024-11-18 08:00] LABS: #Basophils 0.08 10x3/uL (0.0-0.2); #Eosinophils 0.26 10x3/uL (0.0-0.7); #Monocytes 0.67 10x3/uL (0.11-0.59); #Neutrophils 3.30 10x3/uL (1.40-6.50); %Basophils 1.3 % (0.0-1.0); %Eosinophils 4.2 % (0.0-10.0); %Lymphocytes 30.1 % (21.0-51.0); %Monocytes 10.8 % (0.0-10.0); %Neutrophils 53.1 % (42.0-75.0); Hematocrit 33.0 % (36.0-47.0); Hemoglobin 10.6 g/dL (12.0-16.0); Mean Corpuscular Hemoglobin 30.5 pg (27.0-31.0); Mean Corpuscular Volume 94.8 fL (78.0-98.0); Platelet Count 317 10x3/uL (130-400); Red Blood Cell (RBC) Count 3.48 mill/uL (4.20-5.40); White Blood Cell (WBC) Count 6.21 10x3/uL (4.8-10.8)
[2024-11-18 08:00] LABS: Actual Bicarbonate (HCO3a) 24.8 mEq/L (22-28); Analyzer IN Cardio ER; Base Excess (BEa) 0.6 mEq/L (-2.0 to +3.0); CO2 Tension 38.0 mmHg (35.0-45.0); Calcium, Ionized (arterial) 1.19 mmol/L (1.12-1.30); Hematocrit-ABG 34 % (36.0-47.0); Hemoglobin (Hb) 11.4 g/dL (12.0-16.0); O2 Tension (PaO2), arterial 73.0 mmHg (> 60.0); Potassium - ABG Lab 3.94 mmol/L (3.70-5.30); pH, Arterial 7.432 (7.35-7.45)
[2024-11-18 08:12] LABS: ALT (SGPT) 15 U/L (Less than 34); AST (SGOT) 22 U/L (11-34); Albumin 3.7 g/dL (3.1-4.5); Alkaline Phosphatase 67 U/L (40-110); Anion Gap 12 mmol/L (10-20); BUN (Urea Nitrogen) 19 mg/dL (9.8-20.1); Bilirubin, Total 0.2 mg/dL (0.3-1.2); Calc. Creatinine Clearance 0 mL/min (70-130); Calcium 9.5 mg/dL (7.8-10.44); Carbon Dioxide 25 mmol/L (23-31); Chloride 109 mmol/L (98-107); Globulin 3.1 g/dL (2.4-3.5); Glucose 129 mg/dL (83-110); Magnesium 2.1 mg/dL (1.6-2.6); Potassium 4.4 mmol/L (3.5-5.1); Sodium 142 mmol/L (136-145)
[2024-11-18] MEDS ORDERED: Iopamidol 370 76% 100 ML VIAL ONE (10:29)
[2024-11-18] MEDS ORDERED: Melatonin 3 MG TAB PO PRN (11:09)
[2024-11-18] MEDS ORDERED: Ondansetron PF 4 MG/2 ML Vial IVP PRN (11:09)
[2024-11-18] MEDS ORDERED: Senokot S 8.6-50 MG TAB PO PRN (11:09)
[2024-11-18] MEDS ORDERED: Glucagon 1 MG/ML KIT IM PRN (12:00)
[2024-11-18] MEDS ORDERED: Dextrose 50% Abboject 50 ML SYRINGE SLOW IVP PRN (12:00)
[2024-11-18] MEDS: Carvedilol 25 MG TAB PO SCH (16:11)
[2024-11-18] MEDS: Furosemide 40 MG (4 mL) VIAL SLOW IVP SCH (16:11)
[2024-11-18 18:08] VITALS: BMI 29.1
[2024-11-18] MEDS: Rosuvastatin 20 MG TAB PO SCH (21:32)
[2024-11-18] MEDS: Heparin 5,000 UNITS/ML VIAL SC SCH (21:33)
[2024-11-19] MEDS ORDERED: Enoxaparin 40 MG (0.4 mL) SYRINGE SC SCH (09:00)
[2024-11-19] MEDS ORDERED: cloNIDine 0.1 MG TAB PO SCH (09:00)
[2024-11-19] MEDS ORDERED: LEVOTHYROXINE SODIUM 112 MCG PO SCH (09:00)
[2024-11-19 10:00] LABS: #Basophils 0.06 10x3/uL (0.0-0.2); #Eosinophils 0.15 10x3/uL (0.0-0.7); #Monocytes 0.59 10x3/uL (0.11-0.59); #Neutrophils 3.60 10x3/uL (1.40-6.50); %Basophils 0.9 % (0.0-1.0); %Eosinophils 2.3 % (0.0-10.0); %Lymphocytes 31.6 % (21.0-51.0); %Monocytes 9.1 % (0.0-10.0); %Neutrophils 55.8 % (42.0-75.0); Hematocrit 34.2 % (36.0-47.0); Hemoglobin 11.8 g/dL (12.0-16.0); Mean Corpuscular Hemoglobin 31.1 pg (27.0-31.0); Mean Corpuscular Volume 90.0 fL (78.0-98.0); Platelet Count 330 10x3/uL (130-400); Red Blood Cell (RBC) Count 3.80 mill/uL (4.20-5.40); White Blood Cell (WBC) Count 6.46 10x3/uL (4.8-10.8)
[2024-11-19 10:22] LABS: ALT (SGPT) 9 U/L (Less than 34); AST (SGOT) 16 U/L (11-34); Albumin 3.4 g/dL (3.1-4.5); Alkaline Phosphatase 61 U/L (40-110); Anion Gap 15 mmol/L (10-20); BUN (Urea Nitrogen) 23 mg/dL (9.8-20.1); Bilirubin, Total 0.3 mg/dL (0.3-1.2); Calc. Creatinine Clearance 28 mL/min (70-130); Calcium 9.1 mg/dL (7.8-10.44); Carbon Dioxide 26 mmol/L (23-31); Chloride 104 mmol/L (98-107); Globulin 3.1 g/dL (2.4-3.5); Glucose 153 mg/dL (83-110); Magnesium 2.0 mg/dL (1.6-2.6); Potassium 3.3 mmol/L (3.5-5.1); Sodium 142 mmol/L (136-145)
[2024-11-19] MEDS: Ezetimibe 10 MG TAB PO SCH (10:55)
[2024-11-19] MEDS: Dapagliflozin Propanediol 10 MG TAB PO SCH (10:55)
[2024-11-19] MEDS: Pantoprazole 40 MG DR.TAB PO SCH (10:56)
[2024-11-19] MEDS: Amiodarone 200 MG TAB PO SCH (11:37)
[2024-11-19] MEDS: Carvedilol 6.25 MG TAB PO SCH (18:18)
[2024-11-20 05:13] LABS: #Basophils 0.06 10x3/uL (0.0-0.2); #Eosinophils 0.15 10x3/uL (0.0-0.7); #Monocytes 0.73 10x3/uL (0.11-0.59); #Neutrophils 2.12 10x3/uL (1.40-6.50); %Basophils 1.1 % (0.0-1.0); %Eosinophils 2.7 % (0.0-10.0); %Lymphocytes 44.8 % (21.0-51.0); %Monocytes 13.1 % (0.0-10.0); %Neutrophils 37.9 % (42.0-75.0); Hematocrit 33.5 % (36.0-47.0); Hemoglobin 11.1 g/dL (12.0-16.0); Mean Corpuscular Hemoglobin 30.4 pg (27.0-31.0); Mean Corpuscular Volume 91.8 fL (78.0-98.0); Platelet Count 332 10x3/uL (130-400); Red Blood Cell (RBC) Count 3.65 mill/uL (4.20-5.40); White Blood Cell (WBC) Count 5.58 10x3/uL (4.8-10.8)
[2024-11-20 05:30] LABS: ALT (SGPT) 9 U/L (Less than 34); AST (SGOT) 16 U/L (11-34); Albumin 3.4 g/dL (3.1-4.5); Alkaline Phosphatase 58 U/L (40-110); Anion Gap 16 mmol/L (10-20); BUN (Urea Nitrogen) 25 mg/dL (9.8-20.1); Bilirubin, Total 0.3 mg/dL (0.3-1.2); Calc. Creatinine Clearance 23 mL/min (70-130); Calcium 9.1 mg/dL (7.8-10.44); Carbon Dioxide 26 mmol/L (23-31); Chloride 104 mmol/L (98-107); Globulin 2.9 g/dL (2.4-3.5); Glucose 93 mg/dL (83-110); Magnesium 2.2 mg/dL (1.6-2.6); Potassium 3.1 mmol/L (3.5-5.1); Sodium 143 mmol/L (136-145)
[2024-11-21] MEDS: Acetaminophen 325 MG TAB PO PRN (00:02)
[2024-11-21 04:45] LABS: #Basophils 0.06 10x3/uL (0.0-0.2); #Eosinophils 0.14 10x3/uL (0.0-0.7); #Monocytes 0.76 10x3/uL (0.11-0.59); #Neutrophils 2.21 10x3/uL (1.40-6.50); %Basophils 1.1 % (0.0-1.0); %Eosinophils 2.5 % (0.0-10.0); %Lymphocytes 43.6 % (21.0-51.0); %Monocytes 13.4 % (0.0-10.0); %Neutrophils 39.0 % (42.0-75.0); Hematocrit 34.8 % (36.0-47.0); Hemoglobin 11.7 g/dL (12.0-16.0); Mean Corpuscular Hemoglobin 30.3 pg (27.0-31.0); Mean Corpuscular Volume 90.2 fL (78.0-98.0); Platelet Count 328 10x3/uL (130-400); Red Blood Cell (RBC) Count 3.86 mill/uL (4.20-5.40); White Blood Cell (WBC) Count 5.66 10x3/uL (4.8-10.8)
[2024-11-21 05:04] LABS: ALT (SGPT) 10 U/L (Less than 34); AST (SGOT) 17 U/L (11-34); Albumin 3.5 g/dL (3.1-4.5); Alkaline Phosphatase 60 U/L (40-110); Anion Gap 17 mmol/L (10-20); BUN (Urea Nitrogen) 30 mg/dL (9.8-20.1); Bilirubin, Total 0.2 mg/dL (0.3-1.2); Calc. Creatinine Clearance 22 mL/min (70-130); Calcium 9.3 mg/dL (7.8-10.44); Carbon Dioxide 26 mmol/L (23-31); Chloride 102 mmol/L (98-107); Globulin 3.1 g/dL (2.4-3.5); Glucose 102 mg/dL (83-110); Magnesium 2.3 mg/dL (1.6-2.6); Potassium 3.6 mmol/L (3.5-5.1); Sodium 141 mmol/L (136-145)
[2024-11-21] MEDS: Carvedilol 3.125 MG TAB PO SCH (16:39)
[2024-11-22 04:34] LABS: #Basophils 0.06 10x3/uL (0.0-0.2); #Eosinophils 0.15 10x3/uL (0.0-0.7); #Monocytes 0.81 10x3/uL (0.11-0.59); #Neutrophils 2.59 10x3/uL (1.40-6.50); %Basophils 0.9 % (0.0-1.0); %Eosinophils 2.3 % (0.0-10.0); %Lymphocytes 44.5 % (21.0-51.0); %Monocytes 12.4 % (0.0-10.0); %Neutrophils 39.6 % (42.0-75.0); Hematocrit 33.6 % (36.0-47.0); Hemoglobin 11.4 g/dL (12.0-16.0); Mean Corpuscular Hemoglobin 30.5 pg (27.0-31.0); Mean Corpuscular Volume 89.8 fL (78.0-98.0); Platelet Count 324 10x3/uL (130-400); Red Blood Cell (RBC) Count 3.74 mill/uL (4.20-5.40); White Blood Cell (WBC) Count 6.54 10x3/uL (4.8-10.8)
[2024-11-22 04:51] LABS: ALT (SGPT) 10 U/L (Less than 34); AST (SGOT) 19 U/L (11-34); Albumin 3.6 g/dL (3.1-4.5); Alkaline Phosphatase 58 U/L (40-110); Anion Gap 15 mmol/L (10-20); BUN (Urea Nitrogen) 37 mg/dL (9.8-20.1); Bilirubin, Total 0.2 mg/dL (0.3-1.2); Calc. Creatinine Clearance 22 mL/min (70-130); Calcium 9.2 mg/dL (7.8-10.44); Carbon Dioxide 26 mmol/L (23-31); Chloride 103 mmol/L (98-107); Globulin 2.9 g/dL (2.4-3.5); Glucose 95 mg/dL (83-110); Magnesium 2.3 mg/dL (1.6-2.6); Potassium 3.4 mmol/L (3.5-5.1); Sodium 141 mmol/L (136-145)
[2024-11-22 15:59] VITALS: TEMP 98.7
[2024-11-22] MEDS: Furosemide 40 MG TAB PO SCH (16:00)
[2024-11-22 16:25] VITALS: BP 161/81
== END 2024-11-22 17:08 | disposition home or self-care (01) | DRG 291 ==
LOC: ERS 07:03 → 2NO 11:09 → ERS 13:34
PROVIDERS: ADMIT Family Medicine; ATTEND Internal Medicine
PROC: 4A033R1 Measurement of Arterial Saturation, Peripheral, Percutaneous Approach (ICD-10-PCS; principal; 2024-11-18)
DX: I13.0 Hypertensive heart and chronic kidney disease with heart failure and stage 1 through stage 4 chronic kidney disease, or unspecified chronic kidney disease (principal); I50.43 Acute on chronic combined systolic (congestive) and diastolic (congestive) heart failure; J96.01 Acute respiratory failure with hypoxia; I48.20 Chronic atrial fibrillation, unspecified; E78.5 Hyperlipidemia, unspecified; E03.9 Hypothyroidism, unspecified; N18.30 Chronic kidney disease, stage 3 unspecified; M06.89 Other specified rheumatoid arthritis, multiple sites; I42.8 Other cardiomyopathies; F17.210 Nicotine dependence, cigarettes, uncomplicated; D63.1 Anemia in chronic kidney disease; E66.9 Obesity, unspecified; I34.0 Nonrheumatic mitral (valve) insufficiency; I35.1 Nonrheumatic aortic (valve) insufficiency; I36.1 Nonrheumatic tricuspid (valve) insufficiency; I37.1 Nonrheumatic pulmonary valve insufficiency; E11.22 Type 2 diabetes mellitus with diabetic chronic kidney disease; Z98.890 Other specified postprocedural states; Z95.0 Presence of cardiac pacemaker; Z79.899 Other long term (current) drug therapy; Z79.890 Hormone replacement therapy; Z79.01 Long term (current) use of anticoagulants; Z79.82 Long term (current) use of aspirin; Z68.28 Body mass index [BMI] 28.0-28.9, adult
CPT/HCPCS: 36415; 36416; 71045; 71275; 74177; 80053; 82805; 83735; 83880; 84484; 85025; 87428; 93005; 93306; 94760; 96374; 97139; J1644; J1940; Q9967

== ENCOUNTER 2024-11-30 11:23 | Emergency (ER) | payer OTHER, MEDICAID ==
[2024-11-30] MEDS ORDERED: Ketorolac Tromethamine 30 MG (1 mL) VIAL ONE (12:20)
[2024-11-30] MEDS ORDERED: Ondansetron PF 4 MG/2 ML Vial ONE (12:21)
[2024-11-30 12:26] LABS: #Basophils 0.12 10x3/uL (0.0-0.2); #Eosinophils 0.16 10x3/uL (0.0-0.7); #Monocytes 0.97 10x3/uL (0.11-0.59); #Neutrophils 5.85 10x3/uL (1.40-6.50); %Basophils 1.3 % (0.0-1.0); %Eosinophils 1.7 % (0.0-10.0); %Lymphocytes 23.7 % (21.0-51.0); %Monocytes 10.4 % (0.0-10.0); %Neutrophils 62.5 % (42.0-75.0); Hematocrit 35.2 % (36.0-47.0); Hemoglobin 11.6 g/dL (12.0-16.0); Mean Corpuscular Hemoglobin 30.1 pg (27.0-31.0); Mean Corpuscular Volume 91.4 fL (78.0-98.0); Platelet Count 399 10x3/uL (130-400); Red Blood Cell (RBC) Count 3.85 mill/uL (4.20-5.40); White Blood Cell (WBC) Count 9.36 10x3/uL (4.8-10.8)
[2024-11-30 12:45] LABS: Bacteria/HPF 4+ HPF (None Seen); CAUTI Indications for Culture Dysuria,urgency,freq; Glucose, Urine (Dipstick) Normal (Negative); Leukocyte 500 Leu/uL (Negative); Protein, Urine (Dipstick) Negative (Neg-Trace); RBC/HPF 0-3 HPF (0-3); Specific Gravity, Urine 1.012 (1.002-1.036); WBC/HPF Greater than 50 HPF (0-3)
[2024-11-30 12:47] LABS: ALT (SGPT) 10 U/L (Less than 34); AST (SGOT) 24 U/L (11-34); Albumin 3.5 g/dL (3.1-4.5); Alkaline Phosphatase 68 U/L (40-110); Anion Gap 20 mmol/L (10-20); BUN (Urea Nitrogen) 27 mg/dL (9.8-20.1); Bilirubin, Total 0.4 mg/dL (0.3-1.2); Calc. Creatinine Clearance 0 mL/min (70-130); Calcium 9.8 mg/dL (7.8-10.44); Carbon Dioxide 27 mmol/L (23-31); Chloride 97 mmol/L (98-107); Globulin 4.3 g/dL (2.4-3.5); Glucose 121 mg/dL (83-110); Potassium 3.3 mmol/L (3.5-5.1); Sodium 141 mmol/L (136-145); Urine Culture Reflex Yes Yes
== END 2024-11-30 15:48 | disposition home or self-care (01) ==
LOC: ERS 11:23
DX: N39.0 Urinary tract infection, site not specified (principal); E11.22 Type 2 diabetes mellitus with diabetic chronic kidney disease; N18.9 Chronic kidney disease, unspecified; I12.9 Hypertensive chronic kidney disease with stage 1 through stage 4 chronic kidney disease, or unspecified chronic kidney disease; E78.5 Hyperlipidemia, unspecified; E03.9 Hypothyroidism, unspecified; I48.91 Unspecified atrial fibrillation; F17.210 Nicotine dependence, cigarettes, uncomplicated; Z79.82 Long term (current) use of aspirin; Z79.899 Other long term (current) drug therapy
CPT/HCPCS: 74176; 80053; 81001; 83690; 85025; 87077; 87086; J1885; J2405; 87186; 96365; 96375